=== PATIENT | female | born 1940 | race Caucasian/White ===

== ENCOUNTER 2020-11-21 12:53 | Observation (INO) | payer MEDICARE, OTHER, SELFPAY ==
[2020-11-21] VITALS (19 sets, daily range): BP systolic 144–191; BP diastolic 53–113; PULSE 56–82; RESP 15–25; TEMP 36.3–36.5; O2SAT 90–96; BMI 29.5
--- NOTE | ~2020-11-21 | CT_ITS ---
EXAMINATION: CT brain wo con EXAM DATE: 11/21/2020 13:39 INDICATION: Fall, neck pain, posterior head injury. Altered mental status. TECHNIQUE: Spiral CT of the head was performed without contrast. Axial, coronal and sagittal images were reviewed. The dose-length product (DLP) for this examination was 605.33 mGy-cm. The exposure w as tailored according to patient size, and iterative reconstruction (ASIR) was used as additional dos e reduction technique. Comparison is made to prior examination from 08/26/2017. FINDINGS: There is no acute intraparenchymal hemorrhage. No evidence of intraparenchymal brain mass lesion. No evidence of acute infarction. Please note that initial head CT has limited sensitivity f or small or acute infarctions. Punctate old right caudate head lacunar infarction. There is mild to moderate periventricular and subcortical hypodensity, nonspecific but probably related to small vess el ischemic disease. There is mild to moderate prominence of the sulci and ventricles related to ce rebral atrophy. There is intracranial carotid arteriosclerosis. There are no extra-axial collectio ns. There is no mass effect or midline shift. Patient has had bilateral ocular lens surgery. Soft tissue is unremarkable. The visualized sinuses and mastoid air cells are well aerated. IMPRESSION: 1. No acute intracranial findings. 2. Chronic age related findings. Reviewed, dictated and finalized at location A.
--- NOTE | ~2020-11-21 | CT_ITS ---
EXAMINATION: CT cervical spine wo con EXAM DATE: 11/21/2020 13:39 INDICATION: Fall, posterior head injury. TECHNIQUE: Spiral CT of the cervical spine was performed without contrast. Axial images were reviewe d. Coronal and sagittal reformatted images cervical spine were also reviewed. The dose-length produc t (DLP) for this examination was 239.48 mGy-cm. The exposure was tailored according to patient size (auto mA exposure control), and iterative reconstruction (ASIR) was used as additional dose reduction technique. There is no prior study for comparison. FINDINGS: There is mild reversal of the normal cervical lordosis which may be positional, degenerativ e or spasm. There is no evidence of acute cervical fracture. The odontoid process is intact. Pre-de ns space is normal. Prevertebral soft tissue is normal. There are no soft tissue abnormalities iden tified. There is no disc space widening or traumatic vertebral body subluxation suspected. Advanced disc disease C5-T1. Advanced left-sided mid cervical facet arthropathy. Dense carotid arterioscleros is. A detailed level by level evaluation of spondylosis can be added as addendum if requested. IMPRESSION: 1. No acute cervical fracture. 2. Advanced cervical spondylosis. Reviewed, dictated and finalized at location A.
--- NOTE | ~2020-11-21 | XR_ITS ---
EXAMINATION: XR chest 1V EXAM DATE: 11/21/2020 13:49 INDICATION: Fall, altered mental status. TECHNIQUE: Portable AP frontal chest x-ray was obtained. Comparison is made to prior examination from 08/30/2017. FINDINGS: There is cardiomegaly and pulmonary vascular congestion. Possible mild pulmonary edema. No confluent consolidation, pneumothorax or pleural effusion suspected. There are bony degenerative anderson ges. IMPRESSION: Cardiac megaly, pulmonary vascular congestion. Possible mild edema. Reviewed, dictated and finalized at location A.
--- NOTE | 2020-11-21 13:02 | ECG_ITS ---
SINUS RHYTHM RIGHT AXIS DEVIATION INCOMPLETE RIGHT BUNDLE BRANCH BLOCK BORDERLINE T WAVE ABNORMALITY- INFERIOR LEADS BASELINE ARTIFACT- II, III, AVR, AVF, V2-V6 BORDERLINE ECG Electronically Signed On 11-22-2020 7:02:31 CDT by Reji MONTES
--- NOTE | 2020-11-21 13:13 | ECG_ITS ---
Measurements Intervals [place] Rate: 73 P: 11 OK: 143 QRS: 38 QRSD: 92 T: -34 QT: 415 QTc: 458 Interpretive Statements SINUS RHYTHM INCOMPLETE RIGHT BUNDLE BRANCH BLOCK BORDERLINE T WAVE ABNORMALITY- DIFFUSE LEADS BASELINE ARTIFACT- I, II, III, AVR, AVF, V1 BORDERLINE ECG Electronically Signed On 11-21-2020 19:50:46 CDT by Reji Barnett D.O.
--- NOTE | 2020-11-21 13:13 | ED.WEAKNESS ---
HPI - Weakness General Chief complaint: Fall Stated complaint: FALLS History of Present Illness HPI Narrative: Weakness and confusion for the past week. Noted to have 2 falls today. Her son says that she used to have dementia. She lives alone and is usually self sufficient. He does not think that she has been eating. He notes that she has been worried because her other son is in the hospital. EMS notes that she has been incontinent of urine and her glucose was significantly elevated. History limited by mental status. Related Data Home Medications Medication Instructions Recorded Confirmed acetazolamide 250 mg PO DAILY 11/21/20 11/21/20 atenolol 50 mg PO DAILY 11/21/20 11/21/20 escitalopram oxalate 10 mg PO DAILY 11/21/20 11/21/20 gabapentin 1,200 mg PO 11/21/20 11/21/20 gabapentin 600 mg PO DAILY 11/21/20 11/21/20 insulin glargine [Lantus Solostar 0 unit SUBCUT DAILY 11/21/20 11/21/20 U-100 Insulin] latanoprost 1 drp EACH EYE 11/21/20 11/21/20 lisinopril 40 mg PO 11/21/20 11/21/20 loperamide [Imodium A-D] 2 mg PO QID PRN 11/21/20 11/21/20 rosuvastatin 10 mg PO DAILY 11/21/20 11/21/20 Allergies Allergy/AdvReac Type Severity Reaction Status Date / Time codeine Allergy Unknown Unknown Verified 11/21/20 18:05 Review of Systems Review of Systems: All systems reviewed & are unremarkable except as noted in HPI and below ROS unobtainable: Yes unobtainable due to mental status Constitutional: Constitutional: Denies fever(s) and Reports weakness PMFSH Past Medical History Medical History Dementia Diabetes HTN (hypertension) Social History Social History Smoking status: Former smoker Tobacco type: cigarettes Second hand tobacco smoke exposure: No Alcohol intake: never Substance use: never Gender identity (if verbalized by the patient): Female Sexual Orientation (if Verbalized by the Patient): Straight or Heterosexual Spiritual care concerns: No Exam Const: General: no acute distress, alert and ill appearing Other: oriented x2 HENMT: Mouth: Yes dry mucous membranes Other: 2 cm posterior scalp laceration Eyes: Conjunctivae: conjunctivae normal Pupils: Equal, round and reactive pupils present EOM: EOMs intact bilaterally Neck: Neck: normal visual inspection and no lymphadenopathy Chest: Chest palpation & inspection: no tenderness Resp: Effort & Inspection: normal respiratory effort Auscultation: clear to auscultation bilaterally, no rales, no rhonchi and no wheezes Cardio: Jugular venous distension: no JVD Rate: regular rate Rhythm: regular rhythm Heart sounds: no murmurs GI: Inspection: non-distended GI Palp: Yes Soft to palpation and No Tenderness to palpation present (GI) Skin: General skin exam: normal color Other: erythema under pannus. Mild skin breakdown to buttocks without wound Neuro: General: moves all extremities, no focal motor deficits and CN's II-XI intact bilaterally Speech: normal speech Extrem: General: no edema Psych: Appearance: well kempt Affect: normal affect Course Vital Signs Vital signs: Vital Signs Pulse Rate 74 11/21/20 13:16 Respiratory Rate 20 11/21/20 13:16 Pulse Oximetry 94 11/21/20 13:16 Temperature 36.3 C L 11/21/20 18:00 Pulse Rate 70 11/21/20 18:00 Respiratory Rate 16 11/21/20 18:00 Blood Pressure 152/81 H 11/21/20 18:00 Pulse Oximetry 91 11/21/20 18:00 Procedures Laceration Laceration 1: Date: 11/21/20 Site: scalp Size (cm): 2 Description: linear Depth: simple, single layer Local Anesthetic: none Pre-repair: wound explored and irrigated ====== Skin Level ====== Skin layer closed with: kourtney Number of sutures: 2 ====== Subcutaneous Layer ====== ====== Muscle Layer ====== ====== Tendon Layer ===
[2020-11-21 13:25] LABS: Basophils Percent Auto 0.3 % (0.2-1.2); Hematocrit 42.7 % (37.0-47.0); Hemoglobin 14.7 g/dL (12.0-15.0); Immature Granulocyte Absolute 0.08 K/mm3 (0.00-0.031); Immature Granulocyte Percent A 0.5 % (0-0.5); Mean Corpuscular HGB Conc 34.4 g/dl (32-36); Mean Corpuscular Hemoglobin 29.3 pg (26-34); Mean Corpuscular Volume 85.1 fl (80-100); Mean Platelet Volume 11.8 fl (7.4-10.4); Monocytes Absolute Auto 1.3 K/mm3 (0.1-0.6); Monocytes Percent Auto 8.4 % (2.6-8.5); Neutrophils Absolute Auto 13.6 K/mm3 (1.3-6.7); Neutrophils Percent Auto 85.8 % (45.5-73.1); Platelet Count Result 273 k/mm3 (150-375); Red Blood Count 5.02 M/mm3 (4.2-5.4); Red Cell Distribution Width 13.3 % (11.5-14.5); White Blood Count 15.9 K/mm3 (4.5-10.0)
[2020-11-21 13:34] LABS: INR 0.9; Prothrombin Time 13.1 Seconds (11.1-14.7)
[2020-11-21 13:35] LABS: Partial Thromboplastin Time 27.8 SECONDS (22.3-36.8)
[2020-11-21] MEDS: SODIUM CHLORIDE 0.9% IV 1,000 ML 999 ML IV CONT ×2 (13:42→14:35)
[2020-11-21 14:14] LABS: Glucose Point of Care 239 (65-105)
[2020-11-21 14:33] LABS: Alanine Aminotransferase 31 U/L (4-35); Albumin Level 3.2 g/dL (3.5-5.1); Alkaline Phosphatase 94 U/L (38-126); Anion Gap 2 mmol/L (8-16); Aspartate Amino Transferase 103 U/L (14-36); Bilirubin,Total 0.5 mg/dL (0.2-1.3); Blood Urea Nitrogen 31 mg/dL (7-17); Calcium 9.3 mg/dL (8.4-10.2); Carbon Dioxide 29 mmol/L (22-30); Chloride 106 mmol/L (98-107); Estimated CRCL calculation 35 ml/min; Estimated Glomerular Filt Rate 48; Glucose 242 mg/dL (65-105); Potassium 4.1 mmol/L (3.4-5.0); Sodium 137 mmol/L (137-145)
[2020-11-21 14:39] LABS: Add Urine Microscopic? YES; Appearance Urine Clear (Clear); Bacteria Urine Trace /hpf; Bilirubin Urine Negative (Negative); Blood Urine Negative (Negative); Color Urine Yellow (Yellow); Glucose Urine UA 2+ mg/dL (Negative); Ketones Urine Negative (Negative); Leukocyte Esterase Ur Negative LEU/UL (Negative); Mucus Urine Rare /lpf; Nitrate Urine Negative (Negative); Protein Urine 3+ mg/dL (Negative); RBC Urine 0-2 /hpf (0-2); Specific Grav Ur 1.018 (1.001-1.035); Urobilinogen Urine Negative mg/dL (<2.0); WBC Urine 0-3 /hpf
--- NOTE | 2020-11-21 15:28 | PC.NURSE ---
Report given to Sybil ORTIZ
--- NOTE | 2020-11-21 17:40 | ADMGEN ---
This patient, Terri Rodriguez, was admitted to 3 [facility] Surg Room 333-01. Patient/family oriented to hospital policies and general routines including ID bracelet, bed and alarms, visiting hours, pain management, procedures, bathroom and other care routines, personal items, smoking policy, room service/diet, and visiting hours. Information on how to activate the Rapid Response Team has been discussed. Patient/Family are encouraged to report perceived risks to care and to ask questions if they do not understand what they are told or what they should do.
[2020-11-21] MEDS: LACTATED RINGERS 1,000 ML 75 ML IV CONT (18:06)
--- NOTE | 2020-11-21 18:28 | ECG_ITS ---
SINUS RHYTHM INCOMPLETE RIGHT BUNDLE BRANCH BLOCK BORDERLINE T WAVE ABNORMALITY- DIFFUSE LEADS BASELINE ARTIFACT- I, II, III, AVR, AVF, V1 BORDERLINE ECG Electronically Signed On 11-21-2020 19:50:46 CDT by Reji Barnett D.O. COMPARED TO ECG 11/21/2020 13:02:10 INCOMPLETE RIGHT BUNDLE-BRANCH BLOCK NOW PRESENT MTDD
--- NOTE | 2020-11-21 22:04 | PM.IMHP ---
H&P: HPI History of Present Illness Date/Time: 11/21/20 22:04 this is a 80-year-old female patient who resides at home. The patient had been complaining of weakness and confusion for the last past week. She fall 2 times today. She does have a history of dementia. Is reported that the patient lives home alone. Her son was in the emergency room with her any stated that he does not believe that she has been eating or drinking. The patient has been incontinent of urine and had limited mental status. Was noted that the patient had a scalp laceration and had 2 kourtney placed. Is not known if the patient lost consciousness. Chronic age-related findings. Cervical spine CT was read as no acute cervical fracture advanced cervical spondylosis. Chest x-ray was read as cardiac megaly pulmonary vascular congestion possible mild edema.wbc 15.9. Her blood sugar was noted to be 252. Urine was negative for UTI. The patient was given IV fluids. She is being admitted for observation on the date of service of 11/21/2020 Chief Complaint: Fall Review of Systems Review of Systems: ROS unobtainable: Yes unobtainable due to mental status PMFSH Past Medical History Medical History (Updated 11/21/20 @ 22:37 by Casi Davis NP) Congestive heart failure COPD (chronic obstructive pulmonary disease) Dementia Diabetes Diabetes mellitus with neuropathy Diabetic retinopathy Foot fracture Glaucoma History of cervical cancer History of seizure HTN (hypertension) HTN (hypertension), malignant Hyperlipidemia Obstructive sleep apnea Noncompliant with a CPAP Surgical History Surgical History (Updated 11/21/20 @ 22:12 by Casi Davis NP) H/O tubal ligation H/O: hysterectomy History of appendectomy Hx of cholecystectomy Family History Family History (Updated 11/21/20 @ 22:13 by Casi Davis NP) Unknown Adopted Social History Social History (Updated 11/21/20 @ 22:16 by Casi Davis NP) Social History: According to the ER records the patient lives home alone and there was a son that was down the with her earlier. 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 The next of kin Nickolas whitman Smoking status: Former smoker Tobacco type: cigarettes Second hand tobacco smoke exposure: No Alcohol intake: never Substance use: never Gender identity (if verbalized by the patient): Female Sexual Orientation (if Verbalized by the Patient): Straight or Heterosexual Spiritual care concerns: No Meds Home Medications and Allergies Home Medications Medication Instructions Recorded Confirmed Type acetazolamide 250 mg PO DAILY 11/21/20 11/21/20 History atenolol 50 mg PO DAILY 11/21/20 11/21/20 History escitalopram oxalate 10 mg PO DAILY 11/21/20 11/21/20 History gabapentin 1,200 mg PO HS 11/21/20 11/21/20 History gabapentin 600 mg PO DAILY 11/21/20 11/21/20 History insulin glargine [Lantus Solostar 0 unit SUBCUT DAILY 11/21/20 11/21/20 History U-100 Insulin] latanoprost 1 drp EACH EYE HS 11/21/20 11/21/20 History lisinopril 40 mg PO HS 11/21/20 11/21/20 History loperamide [Imodium A-D] 2 mg PO QID PRN 11/21/20 11/21/20 History rosuvastatin 10 mg PO DAILY 11/21/20 11/21/20 History Allergies Allergy/AdvReac Type Severity Reaction Status Date / Time codeine Allergy Unknown Unknown Verified 11/21/20 18:05 Vital Signs Vital Signs - 24 hr 11/21/20 13:16 11/21/20 13:47 11/21/20 14:00 Temperature Pulse Rate 74 76 78 Respiratory Rate 20 17 20 Blood Pressure 183/68 H Pulse Oximetry 94 94 96 11/21/20 14:02 11/21/20 14:15 11/21/20 14:16 Temperature Pulse Rate 79 79 82 Respiratory Rate 23 H 18 24 H Blood Pressure 160/61 H 169/71 H Pulse Oximetry 95 96 95 11/21/20 14:30 11/21/20 14:31 11/21/20 14:45 Temperature Pulse Rate 79 80 77 Respiratory Rate 15 19 21 H Blood Pressure 186/78 H Pulse Oximetry 95 90 93 11/21/20 14:47 11/21/20 14:51 11/21/20 15:00 Temperature Pulse Rate 78 7
[2020-11-21] MEDS: GABAPENTIN 400 MG CAPSULE 1200 MG PO (23:00)
[2020-11-21] MEDS: LATANOPROST 0.005% OP SOLN 2.5 ML BTL 1 DROP EACH EYE (23:05)
[2020-11-21] MEDS: lisinopriL 20 MG TABLET 40 MG PO (23:05)
[2020-11-22] VITALS (8 sets, daily range): BP systolic 128–179; BP diastolic 44–112; PULSE 53–65; RESP 18–20; TEMP 36.4–36.6; O2SAT 95–97
[2020-11-22 06:34] LABS: Basophils Absolute Auto 0.1 K/mm3 (0.0-0.1); Basophils Percent Auto 0.5 % (0.2-1.2); Eosinophils Absolute Auto 0.2 K/mm3 (0-0.3); Hematocrit 40.6 % (37.0-47.0); Hemoglobin 13.3 g/dL (12.0-15.0); Immature Granulocyte Absolute 0.04 K/mm3 (0.00-0.031); Immature Granulocyte Percent A 0.4 % (0-0.5); Lymphocytes Absolute Auto 1.75 K/mm3 (0.9-3.2); Lymphocytes Percent Auto 16.6 % (18.3-44.2); Mean Corpuscular HGB Conc 32.8 g/dl (32-36); Mean Corpuscular Hemoglobin 29.3 pg (26-34); Mean Corpuscular Volume 89.4 fl (80-100); Mean Platelet Volume 11.7 fl (7.4-10.4); Monocytes Percent Auto 9.4 % (2.6-8.5); Neutrophils Absolute Auto 7.5 K/mm3 (1.3-6.7); Neutrophils Percent Auto 71.1 % (45.5-73.1); Platelet Count Result 221 k/mm3 (150-375); Red Blood Count 4.54 M/mm3 (4.2-5.4); Red Cell Distribution Width 13.6 % (11.5-14.5); White Blood Count 10.5 K/mm3 (4.5-10.0)
[2020-11-22 06:42] LABS: Alanine Aminotransferase 32 U/L (4-35); Albumin Level 2.6 g/dL (3.5-5.1); Alkaline Phosphatase 74 U/L (38-126); Anion Gap -1 mmol/L (8-16); Aspartate Amino Transferase 88 U/L (14-36); Bilirubin,Total 0.4 mg/dL (0.2-1.3); Blood Urea Nitrogen 25 mg/dL (7-17); Calcium 8.6 mg/dL (8.4-10.2); Carbon Dioxide 31 mmol/L (22-30); Chloride 107 mmol/L (98-107); Estimated CRCL calculation 35 ml/min; Estimated Glomerular Filt Rate 54; Glucose 162 mg/dL (65-105); Lactate Dehydrogenase 689 U/L (313-618); Magnesium 1.9 mg/dL (1.6-2.3); Potassium 4.1 mmol/L (3.4-5.0); Sodium 137 mmol/L (137-145)
[2020-11-22 07:00] LABS: Hemoglobin A1C 9.1 % (<5.7)
[2020-11-22 07:56] LABS: Glucose Point of Care 157 (65-105)
[2020-11-22] MEDS: LACTATED RINGERS 1,000 ML 75 ML IV CONT (08:16)
[2020-11-22] MEDS: GABAPENTIN 300 MG CAPSULE 600 MG PO (10:08)
[2020-11-22] MEDS: ROSUVASTATIN 10 MG TABLET PO (10:08)
[2020-11-22] MEDS: ESCITALOPRAM OXALATE 10 MG TABLET PO (10:08)
[2020-11-22] MEDS: acetaZOLAMIDE TAB 250 MG TABLET PO (10:08)
[2020-11-22] MEDS: atenoloL 50 MG TABLET PO (10:08)
[2020-11-22] MEDS: MICONAZOLE NITRATE 2% CREAM 30 GM TUBE 1 APPLIC TOPICAL ×2 (10:09)
[2020-11-22] MEDS: INSULIN GLARGINE (*BKC) 100 UNITS/ML 25 UNITS SUB-Q (10:50)
[2020-11-22 11:48] LABS: Glucose Point of Care 243 (65-105)
[2020-11-22] MEDS: INSULIN ASPART (*BKC) 100 UNITS/ML SUB-Q (11:53)
--- NOTE | 2020-11-22 13:25 | PM.IMPN ---
Progress Note: A&P Assessment and Plan (1) Falls: Code(s): W19.XXXA - Unspecified fall, initial encounter Status: Acute Assessment and Plan: The patient has a laceration to the left parietal occipital area and had a CT scan which was read as nothing acute. Will need to do a chronic care nurse evaluation as the patient lives home alone. Will need PT and OT evaluation as well. 11/22/20 13:25 this is a 80-year-old female patient who resides at home. The patient had been complaining of weakness and confusion for the last past week. She fall 2 times today. She does have a history of dementia. Is reported that the patient lives home alone. Her son was in the emergency room with her any stated that he does not believe that she has been eating or drinking. The patient has been incontinent of urine and had limited mental status. Was noted that the patient had a scalp laceration and had 2 kourtney placed. Is not known if the patient lost consciousness. Chronic age-related findings. Cervical spine CT was read as no acute cervical fracture advanced cervical spondylosis. Chest x-ray was read as cardiac megaly pulmonary vascular congestion possible mild edema.wbc 15.9. Her blood sugar was noted to be 252. Urine was negative for UTI. The patient was given IV fluids. She is being admitted for observation on the date of service of 11/21/202011/22 patient with frequent fall and had a recent fall was brought to the emergency depart, this morning patient states it just feels tired and fatigue no energy to get up and do something, does not feel like eating poor appetite, denies any chest shortness of breath palpitation fever or chills, CT scan of the head was negative any acute injury, will have a PT OT evaluate the patient, patient will benefit going into rehab before going home (2) Dementia: Code(s): F03.90 - Unspecified dementia without behavioral disturbance Status: Chronic Assessment and Plan: The patient had been functioning at home but apparently is having some periods of confusion and not eating very well. utilization review coordinator evaluation and greatly be appreciated possible rehab facility or long-term facility. (3) Diabetes mellitus with neuropathy: Code(s): E11.40 - Type 2 diabetes mellitus with diabetic neuropathy, unspecified Status: Chronic Assessment and Plan: AC and HS. Continue with Lantus. Continue with gabapentin. (4) HTN (hypertension), malignant: Code(s): I10 - Essential (primary) hypertension Status: Chronic Assessment and Plan: Continue with atenolol. And lisinopril. (5) Hyperlipidemia: Code(s): E78.5 - Hyperlipidemia, unspecified Status: Chronic Assessment and Plan: Continue with rosuvastatin (6) COPD (chronic obstructive pulmonary disease): Code(s): J44.9 - Chronic obstructive pulmonary disease, unspecified Status: Chronic Assessment and Plan: Continue with home medications. (7) Congestive heart failure: Code(s): I50.9 - Heart failure, unspecified Status: Chronic Assessment and Plan: Continue with home medications. (8) Generalized weakness: Code(s): R53.1 - Weakness Status: Acute Assessment and Plan: PT and OT evaluation greatly be appreciated is felt that the patient is weak due to her dehydration. She is being gently hydrated at this time. (9) Laceration of scalp: Code(s): S01.01XA - Laceration without foreign body of scalp, initial encounter Status: Acute Assessment and Plan: Two sutures are intact to the lacerated area is well approximated without any drainage. (10) Dehydration: Code(s): E86.0 - Dehydration Status: Acute Assessment and Plan: Continue to gently hydrate. (11) Glaucoma: Code(s): H40.9 - Unspecified glaucoma Status: Chronic Assessment and Plan: Continue with home medication Subjective Date
--- NOTE | 2020-11-22 14:25 | PC.NURSE ---
On 11/22/20, the student, [ Jossy Enriquez], provided care and completed [facility] documentation on this patient. I have reviewed the student's documentation and agree with the findings.
--- NOTE | 2020-11-22 14:52 | PM.DS ---
DS: Admitting Diagnosis Admitting Diagnosis Admitting Diagnosis: Fall DS: Discharge Diagnosis Discharge Diagnosis (1) Falls: Code(s): W19.XXXA - Unspecified fall, initial encounter Status: Acute Assessment and Plan: The patient has a laceration to the left parietal occipital area and had a CT scan which was read as nothing acute. Will need to do a field care manager evaluation as the patient lives home alone. Will need PT and OT evaluation as well. 11/22/20 13:25 this is a 80-year-old female patient who resides at home. The patient had been complaining of weakness and confusion for the last past week. She fall 2 times today. She does have a history of dementia. Is reported that the patient lives home alone. Her son was in the emergency room with her any stated that he does not believe that she has been eating or drinking. The patient has been incontinent of urine and had limited mental status. Was noted that the patient had a scalp laceration and had 2 kourtney placed. Is not known if the patient lost consciousness. Chronic age-related findings. Cervical spine CT was read as no acute cervical fracture advanced cervical spondylosis. Chest x-ray was read as cardiac megaly pulmonary vascular congestion possible mild edema.wbc 15.9. Her blood sugar was noted to be 252. Urine was negative for UTI. The patient was given IV fluids. She is being admitted for observation on the date of service of 11/21/202011/22 patient with frequent fall and had a recent fall was brought to the emergency depart, this morning patient states it just feels tired and fatigue no energy to get up and do something, does not feel like eating poor appetite, denies any chest shortness of breath palpitation fever or chills, CT scan of the head was negative any acute injury, will have a PT OT evaluate the patient, patient will benefit going into rehab before going home (2) Dementia: Code(s): F03.90 - Unspecified dementia without behavioral disturbance Status: Chronic Assessment and Plan: The patient had been functioning at home but apparently is having some periods of confusion and not eating very well. retail marketing coordinator evaluation and greatly be appreciated possible rehab facility or long-term facility. (3) Diabetes mellitus with neuropathy: Code(s): E11.40 - Type 2 diabetes mellitus with diabetic neuropathy, unspecified Status: Chronic Assessment and Plan: AC and HS. Continue with Lantus. Continue with gabapentin. (4) HTN (hypertension), malignant: Code(s): I10 - Essential (primary) hypertension Status: Chronic Assessment and Plan: Continue with atenolol. And lisinopril. (5) Hyperlipidemia: Code(s): E78.5 - Hyperlipidemia, unspecified Status: Chronic Assessment and Plan: Continue with rosuvastatin (6) COPD (chronic obstructive pulmonary disease): Code(s): J44.9 - Chronic obstructive pulmonary disease, unspecified Status: Chronic Assessment and Plan: Continue with home medications. (7) Congestive heart failure: Code(s): I50.9 - Heart failure, unspecified Status: Chronic Assessment and Plan: Continue with home medications. (8) Generalized weakness: Code(s): R53.1 - Weakness Status: Acute Assessment and Plan: PT and OT evaluation greatly be appreciated is felt that the patient is weak due to her dehydration. She is being gently hydrated at this time. (9) Laceration of scalp: Code(s): S01.01XA - Laceration without foreign body of scalp, initial encounter Status: Acute Assessment and Plan: Two sutures are intact to the lacerated area is well approximated without any drainage. (10) Dehydration: Code(s): E86.0 - Dehydration Status: Acute Assessment and Plan: Continue to gently hydrate. (11) Glaucoma: Code(s): H40.9 - Unspecified glaucoma Status: Chroni
== END 2020-11-22 15:40 | disposition home health service (06) ==
LOC: ANHED 14:06 → ANH3MEDSUR 20:48
PROVIDERS: Nurse Practitioner; Admitting Provider Family Medicine; Emergency Provider Emergency Medicine; PCP Family Medicine; Visit Provider Family Medicine
DX: S01.01XA Laceration without foreign body of scalp, initial encounter (principal); W19.XXXA Unspecified fall, initial encounter; R32 Unspecified urinary incontinence; R53.1 Weakness; E11.42 Type 2 diabetes mellitus with diabetic polyneuropathy; E78.5 Hyperlipidemia, unspecified; F03.90 Unspecified dementia, unspecified severity, without behavioral disturbance, psychotic disturbance, mood disturbance, and anxiety; I11.0 Hypertensive heart disease with heart failure; I50.9 Heart failure, unspecified; J44.9 Chronic obstructive pulmonary disease, unspecified; Z87.891 Personal history of nicotine dependence; Z79.4 Long term (current) use of insulin
CPT/HCPCS: 12001; 36415; 51701; 70450; 71045; 72125; 80053; 81001; 82948; 83036; 83615; 83735; 84443; 85025; 85610; 85730; 93005; 96360; 96361; 97161; 97165; 99285; A9270; G0378; J1815; J7030; J7120

== ENCOUNTER 2022-04-08 14:24 | Inpatient (IN) | payer MEDICARE, OTHER, SELFPAY ==
[2022-04-08] VITALS (17 sets, daily range): BP systolic 152–201; BP diastolic 48–82; PULSE 49–71; RESP 12–22; TEMP 36.1–36.9; O2SAT 92–99; BMI 31.1; BMI 30.9
--- NOTE | ~2022-04-08 | US_ITS ---
EXAMINATION: US carotid duplex BI DATE: 04/09/2022 11:22 INDICATION: Syncope. Carotid atherosclerotic calcifications with stenosis on prior cervical spine CT. TECHNIQUE: Grayscale, color Doppler, and pulsed Doppler images of the cervical carotid arteries were obtained. The degree of vessel stenosis is placed in one of the following categories: normal, <50%, 5 0-69%, >=70% but less than near-occlusion, near-occlusion, or total occlusion. Note that percent sten osis relative to normal distal artery lumen diameter is indirectly measured from velocity measurement s as described by Isaiah, et al. Radiology 2003; 229:340-346. COMPARISON: None. FINDINGS: RIGHT: The right common carotid artery (CCA) peak systolic velocity (PSV) is 69 cm/s. The right internal car otid artery (ICA) PSV is 148 cm/s. The right ICA end-diastolic velocity (EDV) is 14 cm/s. The right I CA/CCA PSV ratio is 2.1. Grayscale and color Doppler images yield an estimate of 50-69% diameter redu ction from plaque in the ICA. The external carotid artery (ECA) PSV is 131 cm/s. There is antegrade f low in the right vertebral artery. LEFT: The left CCA PSV is 90 cm/s. The left ICA PSV is 229 cm/s. The left ICA EDV is 16 cm/s. The left ICA/ CCA PSV ratio is 2.6. Grayscale and color Doppler images yield an estimate of 50-69% diameter reducti on from plaque in the ICA. The ECA PSV is 109 cm/s. The left vertebral artery is not identified which suggests potential occlusion.. IMPRESSION: 1. 50-69% stenosis in the right internal carotid artery. 2. 50-69% stenosis in the left internal carotid artery. 3. Nonvisualized left vertebral artery which suggests the possibility of occlusion. Reviewed, dictated and finalized at location A. IMPRESSION: 1. 50-69% stenosis in the right internal carotid artery. 2. 50-69% stenosis in the left internal carotid artery. 3. Nonvisualized left vertebral artery which suggests the possibility of occlus ion.
--- NOTE | 2022-04-08 14:43 | ECG_ITS ---
Measurements Intervals [place] Rate: 54 P: 74 AR: 157 QRS: 223 QRSD: 139 T: -1 QT: 472 QTc: 448 Interpretive Statements ELECTRONIC VENTRICULAR PACEMAKER INCOMPLETE RIGHT BUNDLE BRANCH BLOCK AND A RIGHT BUNDLE BRANCH BLOCK COMPLEX BORDERLINE T WAVE ABNORMALITY- INFERIOR LEADS BASELINE ARTIFACT- I, III, AVR, AVL ABNORMAL ECG COMPARED TO ECG 11/21/2020 18:37:43 NO SIGNIFICANT CHANGES Electronically Signed On 04-08-2022 20:56:00 CDT by Reji Barnett D.O.
[2022-04-08 15:55] LABS: Basophils Percent Auto 0.5 % (0.2-1.2); Eosinophils Absolute Auto 0.2 K/mm3 (0-0.3); Eosinophils Percent Auto 2.3 % (0-4.4); Hematocrit 46.7 % (37.0-47.0); Immature Granulocyte Absolute 0.02 K/mm3 (0.00-0.031); Immature Granulocyte Percent A 0.2 % (0-0.5); Lymphocytes Absolute Auto 1.74 K/mm3 (0.9-3.2); Lymphocytes Percent Auto 20.9 % (18.3-44.2); Mean Corpuscular HGB Conc 32.1 g/dl (32-36); Mean Corpuscular Hemoglobin 28.7 pg (26-34); Mean Corpuscular Volume 89.5 fl (80-100); Mean Platelet Volume 11.6 fl (7.4-10.4); Monocytes Absolute Auto 0.4 K/mm3 (0.1-0.6); Monocytes Percent Auto 4.7 % (2.6-8.5); Neutrophils Percent Auto 71.4 % (45.5-73.1); Platelet Count Result 227 k/mm3 (150-375); Red Blood Count 5.22 M/mm3 (4.2-5.4); Red Cell Distribution Width 14.6 % (11.5-14.5); White Blood Count 8.3 K/mm3 (4.5-10.0)
[2022-04-08 16:16] LABS: Alanine Aminotransferase 34 U/L (6-35); Albumin Level 3.8 g/dL (3.5-5.1); Alkaline Phosphatase 95 U/L (38-126); Anion Gap 8 mmol/L (8-16); Aspartate Amino Transferase 44 U/L (14-36); Bilirubin,Total 0.3 mg/dL (0.2-1.3); Blood Urea Nitrogen 31 mg/dL (7-17); Calcium 9.1 mg/dL (8.4-10.2); Carbon Dioxide 26 mmol/L (22-30); Chloride 103 mmol/L (98-107); Estimated CRCL calculation 26 ml/min; Estimated Glomerular Filt Rate 36; Glucose 328 mg/dL (65-110); Lipase 123 U/L (23-300); Potassium 7.3 mmol/L (3.4-5.0); Sodium 137 mmol/L (137-145)
--- NOTE | 2022-04-08 17:10 | ED.GENADULT ---
HPI - General Adult General Chief complaint: Abdominal Pain Stated complaint: abd pain Time Seen by Provider: 04/08/22 16:39 History of Present Illness HPI narrative: Patient is a 81-year-old female who presents ER after having syncope. Patient was sitting in chair speaking with family when they witnessed her lose consciousness. They are unable to awaken her with noxious stimuli. Short time later she woke up and began talking them again. She does not recall the event. She was having no chest pain. She does not recall being lightheaded. Patient found to be hyperkalemic. She denies any new vitamins or diets. There have been no recent changes in her home medications. Related Data Home Medications Medication Instructions Recorded Confirmed atenolol 50 mg tablet 25 mg PO DAILY 11/21/20 04/08/22 gabapentin 600 mg tablet 1,200 mg PO HS 11/21/20 04/08/22 gabapentin 600 mg tablet 600 mg PO DAILY 11/21/20 04/08/22 insulin glargine 100 unit/mL (3 25 unit subcut DAILY 11/21/20 04/08/22 mL) subcutaneous pen (Lantus Solostar U-100 Insulin) latanoprost 0.005 % eye drops 1 drp EACH EYE HS 11/21/20 04/08/22 lisinopril 40 mg tablet 40 mg PO HS 11/21/20 04/08/22 loperamide 2 mg tablet (Imodium 2 mg PO QID PRN Diarrhea 11/21/20 04/08/22 A-D) rosuvastatin 10 mg tablet 10 mg PO DAILY 11/21/20 04/08/22 Allergies Allergy/AdvReac Type Severity Reaction Status Date / Time codeine Allergy Unknown Unknown Verified 11/21/20 18:05 Review of Systems Review of Systems: All systems reviewed & are unremarkable except as noted in HPI and below Constitutional: Constitutional: Denies chills, Denies fatigue and Denies fever(s) ENT: Denies nasal congestion and Denies sore throat Cardiovascular: Cardiovascular: Denies chest pain, Denies rapid heart rate and Denies radiating jaw, neck or arm pain Respiratory: Respiratory: Denies cough and Denies dyspnea Gastrointestinal: Gastrointestinal: Denies abdominal pain, Denies nausea and Denies vomiting Neurologic: Reports syncope, Denies headache(s), Denies focal weakness and Denies numbness PMF Past Medical History Medical History (Updated 04/08/22 @ 22:44 by Ahsan Murrell MD) Congestive heart failure COPD (chronic obstructive pulmonary disease) Dementia Diabetes Diabetes mellitus with neuropathy Diabetic retinopathy Foot fracture Glaucoma History of cervical cancer History of seizure HTN (hypertension) HTN (hypertension), malignant Hyperlipidemia Obstructive sleep apnea Noncompliant with a CPAP Surgical History Surgical History (Updated 11/21/20 @ 22:12 by Casi Davis NP) H/O tubal ligation H/O: hysterectomy History of appendectomy Hx of cholecystectomy Family History Family History Unknown Adopted Social History Social History (Updated 11/21/20 @ 22:16 by Casi Davis NP) Social History: According to the ER records the patient lives home alone and there was a son that was down the with her earlier. 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 The next of kin Nickolas whitman Smoking status: Former smoker Second hand tobacco smoke exposure: No Alcohol intake: never Substance use: never Substance use type: does not use Gender identity (if verbalized by the patient): Female Sexual Orientation (if Verbalized by the Patient): Straight or Heterosexual Spiritual care concerns: No Exam Narrative: GENERAL: Well-appearing, obese, and in no acute distress. HEAD: Normocephalic, atraumatic. EYES: PERRL and EOMI. ENT: Mucous membranes moist. CHEST: Clear to auscultation. No respiratory distress. HEART: Bradycardic and regular. Normal peripheral pulses. ABDOMEN: Soft, nontender, nondistended. EXTREMITIES: Normal range of motion. 1+ edema. SKIN: Warm, dry, no rash. NEURO: Alert and oriented x3. PSYCH: Normal mood and affect. Course Course Emergency Course: Patient appears quite well despite t
[2022-04-08] MEDS: SODIUM BICARBONATE 8.4% 50 MEQ/50 ML SYRINGE IV PUSH (17:15)
[2022-04-08] MEDS: CALCIUM GLUCONATE 1,000 MG/10 ML VIAL 1000 MG IV PUSH (17:15)
[2022-04-08] MEDS: INSULIN HUMAN REGULAR (*BKC) 100 UNITS/ML 10 UNITS IV PUSH (17:22)
[2022-04-08] MEDS: SODIUM ZIRCONIUM CYCLOSILICATE 10 GM POWD.PACK PO (18:23)
[2022-04-08] MEDS: SODIUM CHLORIDE 0.9% IV 1,000 ML 999 ML IV CONT (18:23)
[2022-04-08 18:27] LABS: Appearance Urine Slightly Cloudy (Clear); Bilirubin Urine Negative (Negative); Color Urine Yellow (Yellow); Glucose Urine UA 3+ mg/dL (Negative); Ketones Urine Negative (Negative); Leukocyte Esterase Ur 2+ LEU/UL (Negative); Nitrate Urine Negative (Negative); Protein Urine 2+ mg/dL (Negative); Urobilinogen Urine 0.2 mg/dL (<2.0); pH Urine 7.5 (5.0-9.0)
[2022-04-08 18:29] LABS: Add Urine Microscopic? YES; Blood Urine Trace-Intact (Negative)
[2022-04-08 18:34] LABS: Bacteria Urine Trace /hpf; WBC Urine >75 /hpf
[2022-04-08 18:35] LABS: Anion Gap 8 mmol/L (8-16); Blood Urea Nitrogen 34 mg/dL (7-17); Calcium 10.4 mg/dL (8.4-10.2); Carbon Dioxide 27 mmol/L (22-30); Chloride 104 mmol/L (98-107); Estimated CRCL calculation 28 ml/min; Estimated Glomerular Filt Rate 40; Glucose 130 mg/dL (65-110); Magnesium 2.3 mg/dL (1.6-2.3); Potassium 5.3 mmol/L (3.4-5.0); Sodium 139 mmol/L (137-145)
--- NOTE | 2022-04-08 19:30 | PM.IMHP ---
H&P: HPI History of Present Illness Date/Time: 04/08/22 19:30 Chief Complaint: Unresponsive episode. Narrative: This is a pleasant 81-year-old female with insulin-dependent diabetes, congestive heart failure, hypertension, hyperlipidemia, sleep apnea, and COPD who presented to the emergency department via EMS from home for evaluation after an unresponsive episode. She felt okay when she awoke this morning and she and her son went to [place] to have some of her prescriptions filled. While in the car she developed mild, nondescript abdominal discomfort kind of like gas pains however she was able to eat a grilled cheese for lunch. Upon returning home she took Gas-X and when her son went back to check on her, her eyes seemed to roll into the back of her head and she became pale and unresponsive. It took her almost a minute to come to at which time she was a bit confused and she did not recall feeling lightheaded, warm, dizzy, etcetera prior to the episode. Her vital signs were stable on arrival to the ER. Initial workup was significant for a sodium of 137, potassium 7.3, BUN 31, creatinine 1.40, glucose 328. EKG showed a sinus rhythm with incomplete right bundle branch block and some borderline T-wave abnormalities in the inferior leads. She had routine labs drawn perhaps 3 weeks ago and she received a phone call from her doctor's nurse reporting that my protein levels were a bit high and I was told to cut back on the amount of bananas that a eat. The patient's son confirms this message, and they are adamant that they were told that her protein levels were elevated and not her potassium levels. With further questioning it sounds like she does eat quite a bit of fruit in a day, usually at least 1 good sized banana in addition to an apple or plum, a nectarine, and more recently she has been enjoying some grapefruit as well. She has been on lisinopril for many years and has not had any recent changes to her medications. She is not on potassium supplements at home. She took loperamide twice a couple of days ago for diarrhea but she does not take that very often. With appropriate treatment, her potassium has significantly improved. At the time my evaluation she is hungry and is asking for something to eat. She feels just fine and she denies headache, lightheadedness, dizziness, visual changes, chest pain, pleuritic pain, palpitations, shortness of breath, nausea, vomiting, diarrhea, and dysuria. Review of Systems Review of Systems: Twelve systems were reviewed. No fever, chills, or sweats. No recent cold or flu symptoms. She believes her diabetes is pretty well controlled. On occasion she will have lows, mainly in the mornings. She has not had any significantly elevated glucoses recently. No blurry vision, polydipsia, or polyuria. Except as documented, all other systems were reviewed and are negative. [facility] Past Medical History Medical History (Updated 04/09/22 @ 01:09 by Talia Baptiste PA-C) Cervical cancer Chronic obstructive pulmonary disease Congestive heart failure Diabetic neuropathy Diabetic retinopathy Glaucoma History of seizure As a child. Hyperlipidemia Hypertension Insulin dependent type 2 diabetes mellitus Obstructive sleep apnea Intolerant to CPAP. Surgical History Surgical History (Updated 04/09/22 @ 00:58 by Talia Baptiste PA-C) History of appendectomy History of bilateral cataract extraction History of cholecystectomy History of tonsillectomy History of tubal ligation Family History Family History Unknown Adopted Social History Social History (Updated 04/09/22 @ 00:59 by Talia Baptiste PA-C) Social History: The patient lives in [place]. she is a former smoker and quit 35+ years ago. No alcohol or illicit substance abuse. She designates her son, Philip Rodriguez, as her surrogate decision maker and she wishes to be a full code. Pb
--- NOTE | 2022-04-08 21:13 | ADMGEN ---
This patient, Terri Rodriguez, was admitted to IMU Room 204-01 at 2113. Patient/family oriented to hospital policies and general routines including ID bracelet, bed and alarms, visiting hours, pain management, procedures, bathroom and other care routines, personal items, smoking policy, room service/diet, and visiting hours. Information on how to activate the Rapid Response Team has been discussed. Patient/Family are encouraged to report perceived risks to care and to ask questions if they do not understand what they are told or what they should do.
[2022-04-08] MEDS: HYDROcodone/acetaminophen (*CRX) 5-325 MG TABLET 1 TAB PO (23:28)
[2022-04-08] MEDS: SODIUM CHLORIDE 0.9% IV 1,000 ML 125 ML IV CONT (23:38)
[2022-04-09] VITALS (20 sets, daily range): BP systolic 150–216; BP diastolic 51–98; PULSE 43–101; RESP 12–18; TEMP 36.4–36.7; O2SAT 94–98
--- NOTE | 2022-04-09 01:13 | ECHO_ITS ---
Patient Info Name: Terri Rodriguez Age: 81 years : 1940 Gender: Female Ht: 60 in Wt: 158 lbs BSA: 1.77 m2 HR: 47 bpm BP: 200 / 88 mmHg Technical Quality: Good Exam Date: 04/09/2022 10:07 AM Exam Location: [facility] Patient Status: Outpatient Admit Date: 04/08/2022 Staff Ordering Physician: Talia Baptiste PA-C Anesthesiology Medical Doctor: Jericho Fonseca RDCS, RT Attending Provider: Melvin Olivares MD Referring Physician: Oliva RIZO; Exam Type: CA echo doppler color flow Study Info Indications R55 - Syncope and collapse I10 - Essential (primary) hypertension R01.1 - Cardiac murmur, unspecified Complete two-dimensional, color flow and Doppler transthoracic echocardiogram is performed. Strain analysis performed. Summary 1. Complete two-dimensional, color flow and Doppler transthoracic echocardiogram is performed. 2. Left ventricular chamber dimension is normal. 3. Left ventricular systolic function is normal, estimated at 65-70%. 4. There is mildly increased left ventricular wall thickness. 5. The left ventricular diastolic function is grade III diastolic dysfunction. 6. E/e' 50 is significantly elevated. 7. Global longitudinal strain is normal at -17.0%. 8. Left atrial chamber dimension is moderately enlarged. 9. Right atrial chamber dimension is moderately enlarged. 10. There is moderate aortic valve sclerosis. 11. There is mild aortic valve stenosis with a peak velocity of 181 cm/s, mean gradient of 7 mmHg, and aortic valve area of 1.5 cm2. 12. The mitral valve has moderately thickenedleaflets and severely calcified annulus. 13. There is mild mitral valve regurgitation. 14. There is moderate tricuspid valve regurgitation. 15. Severe pulmonary hypertension, estimated pulmonary arterial systolic pressure is 113 mmHg. Left Ventricle E/e' 50 is significantly elevated. Global longitudinal strain is normal at -17.0%. Left ventricular chamber dimension is normal. Left ventricular systolic function is normal, estimated at 65-70%. There is mildly increased left ventricular wall thickness. The left ventricular diastolic function is grade III diastolic dysfunction. Right Ventricle Right ventricular systolic function is normal and with normal TAPSE 2.0 cm. Right ventricular chamber dimension is normal. Left Atria Left atrial chamber dimension is moderately enlarged. Right Atria Right atrial chamber dimension is moderately enlarged. Aortic Valve The aortic valve is trileaflet. There is moderate aortic valve sclerosis. There is mild aortic valve stenosis with a peak velocity of 181 cm/s, mean gradient of 7 mmHg, and aortic valve area of 1.5 cm2. There is no aortic valve regurgitation. Pulmonic Valve There is no pulmonic regurgitation. Mitral Valve The mitral valve has moderately thickenedleaflets and severely calcified annulus. There is no mitral valve stenosis. There is mild mitral valve regurgitation. Tricuspid Valve There is moderate tricuspid valve regurgitation. Severe pulmonary hypertension, estimated pulmonary arterial systolic pressure is 113 mmHg. Pericardium/Pleural There is no pericardial effusion. Inferior Vena Cava Normal inferior vena cava with >50% collapse upon inspiration consistent with normal right atrial pressure, 5 mmHg. Aorta The aortic root size at the sinus of Valsalva is not well visualized. Left Ventricular Outflow Tract
[2022-04-09 04:47] LABS: Hematocrit 42.6 % (37.0-47.0); Hemoglobin 13.7 g/dL (12.0-15.0); Mean Corpuscular HGB Conc 32.2 g/dl (32-36); Mean Corpuscular Hemoglobin 28.9 pg (26-34); Mean Corpuscular Volume 89.9 fl (80-100); Mean Platelet Volume 11.7 fl (7.4-10.4); Platelet Count Result 203 k/mm3 (150-375); Red Blood Count 4.74 M/mm3 (4.2-5.4); Red Cell Distribution Width 14.4 % (11.5-14.5); White Blood Count 7.5 K/mm3 (4.5-10.0)
[2022-04-09 05:04] LABS: Anion Gap 5 mmol/L (8-16); Blood Urea Nitrogen 30 mg/dL (7-17); Calcium 9.3 mg/dL (8.4-10.2); Carbon Dioxide 25 mmol/L (22-30); Chloride 107 mmol/L (98-107); Estimated CRCL calculation 28 ml/min; Estimated Glomerular Filt Rate 40; Glucose 151 mg/dL (65-110); Magnesium 2.2 mg/dL (1.6-2.3); Potassium 5.4 mmol/L (3.4-5.0); Sodium 137 mmol/L (137-145)
[2022-04-09 05:10] LABS: Hemoglobin A1C 9.2 % (<5.7)
[2022-04-09] MEDS: SODIUM CHLORIDE 0.9% IV 1,000 ML 125 ML IV CONT ×2 (07:46→16:25)
[2022-04-09 07:51] LABS: Glucose Point of Care 170 mg/dl (65-105)
--- NOTE | 2022-04-09 08:01 | PM.IMPN ---
Progress Note: A&P Assessment and Plan (1) Syncope: Code(s): R55 - Syncope and collapse Status: Acute (2) Hyperkalemia: Code(s): E87.5 - Hyperkalemia Status: Acute (3) Bradycardia: Code(s): R00.1 - Bradycardia, unspecified Status: Acute (4) Insulin dependent type 2 diabetes mellitus: Code(s): E11.9 - Type 2 diabetes mellitus without complications; Z79.4 - [facility] (current) use of insulin Status: Acute (5) Hypertension: Code(s): I10 - Essential (primary) hypertension Status: Acute (6) Chronic obstructive pulmonary disease: Code(s): J44.9 - Chronic obstructive pulmonary disease, unspecified Status: Acute Plan # unresponsive episode: CT head negative. Vitals stable. Sinus bradycardia. Potassium is elevated 7.3 . Carotid Doppler 50-69% bilaterally possible left vertebral artery occlusion. Cervical spine CT with advanced cervical spondylosis with no acute cervical fracture. Chest x-ray with cardiomegaly pulmonary vascular congestion and possible mild edema. echo has been ordered pending result. Echo with severe pulmonary hypertension is 113 mm Hg. Will check overnight pulse oximetry. Mild grade 3 diastolic dysfunction. # hyperkalemia 7.3 on arrival. Possible hyperkalemia recently noted in her labs. On lisinopril at home which will be discontinued. Appropriately treated in the ER and hyperkalemia improving. # murmur: Echo order # mild MYRNA creatinine 1.4 on admission. Baseline creatinine around 1 last year. Started on IV hydration. chest x-ray with congestive changes. Will stop IV fluids and start diuresis gently with Lasix IV daily # urinary tract infection start ceftriaxone follow urine culture # COPD # peripheral neuropathy # dementia # hypertension lisinopril on hold. Will add amlodipine. # pulmonary hypertension as noted in the echo. Check overnight pulse oximetry. some of the previous record does show she has a history of sleep apnea and on CPAP at home had been noncompliant. Check BNP an ABG # congestive heart failure acute on chronic diastolic. # type 2 diabetes mellitus on insulin: Continue Lantus and SSI. # hyper lipidemia: Statin # DVT prophylaxis Lovenox # code status full code Subjective Date/time seen: 04/09/22 08:01 Interval history: HPI: This is a pleasant 81-year-old female with insulin-dependent diabetes, congestive heart failure, hypertension, hyperlipidemia, sleep apnea, and COPD who presented to the emergency department via EMS from home for evaluation after an unresponsive episode. She felt okay when she awoke this morning and she and her son went to [place] to have some of her prescriptions filled. While in the car she developed mild, nondescript abdominal discomfort kind of like gas pains however she was able to eat a grilled cheese for lunch. Upon returning home she took Gas-X and when her son went back to check on her, her eyes seemed to roll into the back of her head and she became pale and unresponsive. It took her almost a minute to come to at which time she was a bit confused and she did not recall feeling lightheaded, warm, dizzy, etcetera prior to the episode. Her vital signs were stable on arrival to the ER. Initial workup was significant for a sodium of 137, potassium 7.3, BUN 31, creatinine 1.40, glucose 328. EKG showed a sinus rhythm with incomplete right bundle branch block and some borderline T-wave abnormalities in the inferior leads. She had? routine labs drawn perhaps 3 weeks ago and she received a phone call from her doctor's nurse reporting that my protein levels were a bit high and I was told to cut back on the amount of bananas that a eat. ? The patient's son confirms this message, and they are adamant that they were told that her protein levels were elevated and not her potassium levels. With further questioning it sounds like she does eat quite a bit of fruit in a day, usually at least
[2022-04-09] MEDS: GABAPENTIN 300 MG CAPSULE 600 MG PO (08:24)
[2022-04-09] MEDS: ENOXAPARIN 40 MG/0.4 ML SYRINGE SUB-Q (08:24)
[2022-04-09] MEDS: atenoloL 25 MG TABLET PO (08:24)
[2022-04-09] MEDS: ROSUVASTATIN 10 MG TABLET PO (08:24)
[2022-04-09] MEDS: amLODIPine BESYLATE 5 MG TABLET PO (08:31)
[2022-04-09] MEDS: ACETAMINOPHEN 325 MG TABLET 650 MG PO ×2 (08:33→15:44)
[2022-04-09 12:13] LABS: Glucose Point of Care 213 mg/dl (65-105)
[2022-04-09] MEDS: INSULIN ASPART (*BKC) 100 UNITS/ML SUB-Q ×2 (12:48→17:51)
[2022-04-09 16:48] LABS: Glucose Point of Care 228 mg/dl (65-105)
[2022-04-09 18:58] LABS: Alveolar/Arterial O2 Gradient 37.1 mmHg; Base Excess ABG -2.6 mEq/l (+/-2.0); Fractional Inspired Oxygen 21 %; HCO3 ABG 22.6 mEq/l (22.0-26.0); Oxygen Content ABG 18.7 %vol (16.0-22.0); Oxygen Saturation ABG 91.6 % (95.0-100.0); Oxyhemoglobin 91.2 % THb (90.0-100.0); PCO2 ABG 40.9 mmHg (35.0-45.0); PO2 ABG 63.7 mmHg (80.0-100.0); PO2 FiO2 Ratio Arterial Blood 3.03 %; Total Hemoglobin 14.6 g/dL (12.0-18.0); pH ABG 7.361 (7.350-7.450)
[2022-04-09 18:59] LABS: Device ROOM AIR; Modified Allen's Test Pass; Site Drawn RIGHT RADIAL
[2022-04-09 19:14] LABS: NT Pro B Type Natriuretic Pept 4030 pg/mL (5-100)
[2022-04-09 20:29] LABS: Glucose Point of Care 245 mg/dl (65-105)
[2022-04-09] MEDS: GABAPENTIN 400 MG CAPSULE 1200 MG PO (20:34)
[2022-04-09] MEDS: INSULIN GLARGINE (*BKC) 100 UNITS/ML 25 UNITS SUB-Q (20:34)
[2022-04-09] MEDS: LATANOPROST 0.005% OP SOLN 2.5 ML BTL 1 DROP EACH EYE (20:34)
[2022-04-09] MEDS: HYDROcodone/acetaminophen (*CRX) 5-325 MG TABLET 1 TAB PO (20:34)
--- NOTE | 2022-04-09 21:16 | PCRCNOTE ---
Patient refused apnea link tonight. Patient stated she had already gotten diagnosed with sleep apnea, but she is unable to use a cpap and has no intent on ever using one.
[2022-04-10] VITALS (11 sets, daily range): BP systolic 128–218; BP diastolic 43–62; PULSE 38–53; RESP 18–23; TEMP 36.1–36.4; O2SAT 96–98
[2022-04-10 04:53] LABS: Basophils Percent Auto 0.5 % (0.2-1.2); Eosinophils Absolute Auto 0.3 K/mm3 (0-0.3); Eosinophils Percent Auto 3.9 % (0-4.4); Hematocrit 39.9 % (37.0-47.0); Hemoglobin 12.6 g/dL (12.0-15.0); Immature Granulocyte Absolute 0.03 K/mm3 (0.00-0.031); Immature Granulocyte Percent A 0.4 % (0-0.5); Lymphocytes Absolute Auto 2.01 K/mm3 (0.9-3.2); Lymphocytes Percent Auto 26.9 % (18.3-44.2); Mean Corpuscular HGB Conc 31.6 g/dl (32-36); Mean Corpuscular Volume 91.9 fl (80-100); Mean Platelet Volume 11.9 fl (7.4-10.4); Monocytes Absolute Auto 0.9 K/mm3 (0.1-0.6); Monocytes Percent Auto 12.3 % (2.6-8.5); Neutrophils Absolute Auto 4.2 K/mm3 (1.3-6.7); Platelet Count Result 203 k/mm3 (150-375); Red Blood Count 4.34 M/mm3 (4.2-5.4); Red Cell Distribution Width 14.4 % (11.5-14.5); White Blood Count 7.5 K/mm3 (4.5-10.0)
--- NOTE | 2022-04-10 08:12 | PM.IMPN ---
Progress Note: A&P Assessment and Plan (1) Bradycardia: Code(s): R00.1 - Bradycardia, unspecified Status: Acute Assessment and Plan: Decrease atenolol dose from 25-12.5 (2) Hyperkalemia: Code(s): E87.5 - Hyperkalemia Status: Acute Assessment and Plan: Suspect this is secondary to progressive kidney disease associated with lisinopril use as opposed to fruit intake, will decrease lisinopril and start hydralazine, consider nephrology consult outpatient (3) Syncope: Code(s): R55 - Syncope and collapse Status: Acute Assessment and Plan: Likely secondary to arrhythmia from the severe hyperkalemia, resolved (4) Hypertension: Code(s): I10 - Essential (primary) hypertension Status: Acute (5) Insulin dependent type 2 diabetes mellitus: Code(s): E11.9 - Type 2 diabetes mellitus without complications; Z79.4 - [facility] long term care (current) use of insulin Status: Acute Assessment and Plan: Continue Accu-Cheks with sliding scale insulin, monitor (6) Chronic obstructive pulmonary disease: Code(s): J44.9 - Chronic obstructive pulmonary disease, unspecified Status: Acute Assessment and Plan: Stable, appears to be on no medications, will start spiriva (7) Dementia: Code(s): F03.90 - Unspecified dementia without behavioral disturbance Status: Chronic Assessment and Plan: stable (8) Hyperlipidemia: Code(s): E78.5 - Hyperlipidemia, unspecified Status: Chronic (9) Congestive heart failure: Code(s): I50.9 - Heart failure, unspecified Status: Chronic Assessment and Plan: Chronic grade 3 diastolic heart failure with severe pulm HTN, normal EF (10) Transaminitis: Code(s): R74.01 - Elevation of levels of liver transaminase levels Status: Acute Assessment and Plan: Suspect this is secondary to elevated blood pressure, recheck tomorrow Plan DVT prophylaxis with SCDs GI prophylaxis not indicated Code status full code Subjective Date/time seen: 04/10/22 08:12 Interval history: Patient states she feels a little weak today. She states she feels a little better than yesterday in some ways, little worse than others. No overnight events noted. No chest pain or shortness of breath. No nausea, vomiting or diarrhea. No fevers or chills. Review of Systems Review of Systems: 12 point review of systems was assessed and was negative except as noted in the HPI Exam Narrative: General: No acute distress, alert and oriented per baseline HEENT: Atraumatic, normocephalic, mucous membranes moist CV: Regular rate and rhythm, S1, S2 Lungs: Clear to auscultation bilaterally, no rales or crackles noted, no wheezes, good air entry Abdomen: Soft, nontender, nondistended Extremities: Normal to inspection Skin: No rashes noted, no lesions or wounds seen Psych: Euthymic, normal affect Objective Data Vital Signs Vital Signs: Vital Signs - 24 hr 04/09/22 08:24 04/09/22 10:46 04/09/22 10:47 Temperature 98.0 F Pulse Rate 53 L 59 L 51 L Respiratory Rate 18 Blood Pressure 187/82 H 192/63 H Pulse Oximetry 94 Oxygen Delivery 04/09/22 10:48 04/09/22 12:00 04/09/22 16:00 Temperature Pulse Rate 101 H 61 51 L Respiratory Rate Blood Pressure 157/98 H Pulse Oximetry Oxygen Delivery 04/09/22 16:49 04/09/22 20:00 04/09/22 20:00 Temperature 97.6 F 97.6 F Pulse Rate 51 L 48 L 51 L Respiratory Rate 18 18 18 Blood Pressure 171/61 H 171/61 H Pulse Oximetry 98 98 98 Oxygen Delivery Room Air 04/09/22 20:54 04/09/22 20:55 04/09/22 20:56 Temperature Pulse Rate Respiratory Rate Blood Pressure 150/51 H 198/61 H 216/78 H Pulse Oximetry Oxygen Delivery 04/09/22 20:00 04/09/22 21:15 04/09/22 22:00 Temperature Pulse Rate 49 L 51 L 46 L Respiratory Rate Blood Pressure Pulse Oximetry 96 Oxygen Delivery Room
[2022-04-10 08:28] LABS: Alanine Aminotransferase 126 U/L (6-35); Albumin Level 3.6 g/dL (3.5-5.1); Alkaline Phosphatase 108 U/L (38-126); Anion Gap 13 mmol/L (8-16); Aspartate Amino Transferase 233 U/L (14-36); Bilirubin,Total 0.5 mg/dL (0.2-1.3); Blood Urea Nitrogen 29 mg/dL (7-17); Calcium 9.2 mg/dL (8.4-10.2); Carbon Dioxide 23 mmol/L (22-30); Chloride 108 mmol/L (98-107); Estimated CRCL calculation 30 ml/min; Estimated Glomerular Filt Rate 43; Glucose 95 mg/dL (65-110); Magnesium 2.1 mg/dL (1.6-2.3); Potassium 4.5 mmol/L (3.4-5.0); Sodium 144 mmol/L (137-145)
[2022-04-10] MEDS: GABAPENTIN 300 MG CAPSULE 600 MG PO (09:11)
[2022-04-10] MEDS: ROSUVASTATIN 10 MG TABLET PO (09:11)
[2022-04-10] MEDS: amLODIPine BESYLATE 5 MG TABLET 10 MG PO (09:12)
[2022-04-10] MEDS: ENOXAPARIN 40 MG/0.4 ML SYRINGE SUB-Q (09:12)
[2022-04-10] MEDS: EMPAGLIFLOZIN 10 MG TABLET PO (09:12)
[2022-04-10] MEDS: atenoloL 12.5 MG TABLET PO (09:12)
[2022-04-10] MEDS: hydrALAZINE 10 MG TABLET PO ×4 (09:13→21:01)
[2022-04-10 12:18] LABS: Glucose Point of Care 297 mg/dl (65-105)
--- NOTE | 2022-04-10 12:19 | PC.NURSE ---
This patient, Terri Rodriguez, was transferred to [261 ] on 04/10/22 at 1219. Personal belongings sent with patient. Report given to [ ANGEL Mckeon @ [phone]]. Appropriate documentation sent with patient.
--- NOTE | 2022-04-10 12:35 | ADMGEN ---
This patient, Terri Rodriguez, was admitted to 2 Medical Room 261-01. Patient/family oriented to hospital policies and general routines including ID bracelet, bed and alarms, visiting hours, pain management, procedures, bathroom and other care routines, personal items, smoking policy, room service/diet, and visiting hours. Information on how to activate the Rapid Response Team has been discussed. Patient/Family are encouraged to report perceived risks to care and to ask questions if they do not understand what they are told or what they should do. Report received from ANGEL Gonzales
[2022-04-10 12:45] LABS: Glucose Point of Care 271 mg/dl (65-105)
[2022-04-10] MEDS: INSULIN ASPART (*BKC) 100 UNITS/ML SUB-Q ×2 (12:47→18:54)
[2022-04-10 18:52] LABS: Glucose Point of Care 219 mg/dl (65-105)
[2022-04-10] MEDS: GABAPENTIN 400 MG CAPSULE 1200 MG PO (21:01)
[2022-04-10] MEDS: LATANOPROST 0.005% OP SOLN 2.5 ML BTL 1 DROP EACH EYE (21:01)
[2022-04-10 21:06] LABS: Glucose Point of Care 197 mg/dl (65-105)
[2022-04-10] MEDS: INSULIN GLARGINE (*BKC) 100 UNITS/ML 25 UNITS SUB-Q (21:06)
[2022-04-11] VITALS (10 sets, daily range): BP systolic 148–183; BP diastolic 55–79; PULSE 43–58; RESP 18; TEMP 36.2–36.4; O2SAT 97–100
[2022-04-11 05:53] LABS: Basophils Absolute Auto 0.1 K/mm3 (0.0-0.1); Basophils Percent Auto 0.7 % (0.2-1.2); Eosinophils Absolute Auto 0.4 K/mm3 (0-0.3); Hematocrit 41.6 % (37.0-47.0); Hemoglobin 13.4 g/dL (12.0-15.0); Immature Granulocyte Absolute 0.02 K/mm3 (0.00-0.031); Immature Granulocyte Percent A 0.2 % (0-0.5); Lymphocytes Absolute Auto 4.11 K/mm3 (0.9-3.2); Lymphocytes Percent Auto 50.5 % (18.3-44.2); Mean Corpuscular HGB Conc 32.2 g/dl (32-36); Mean Corpuscular Hemoglobin 29.1 pg (26-34); Mean Corpuscular Volume 90.4 fl (80-100); Mean Platelet Volume 11.2 fl (7.4-10.4); Monocytes Absolute Auto 0.9 K/mm3 (0.1-0.6); Monocytes Percent Auto 11.2 % (2.6-8.5); Neutrophils Absolute Auto 2.6 K/mm3 (1.3-6.7); Neutrophils Percent Auto 32.4 % (45.5-73.1); Platelet Count Result 199 k/mm3 (150-375); Red Cell Distribution Width 14.4 % (11.5-14.5); White Blood Count 8.1 K/mm3 (4.5-10.0)
[2022-04-11] MEDS: GLUCOSE ORAL GEL 15 GM OF GLUCSE IN 37.5 GM TUBE PO (06:12)
[2022-04-11 06:26] LABS: Alanine Aminotransferase 75 U/L (6-35); Albumin Level 3.2 g/dL (3.5-5.1); Alkaline Phosphatase 90 U/L (38-126); Anion Gap 8 mmol/L (8-16); Aspartate Amino Transferase 72 U/L (14-36); Bilirubin,Total 0.3 mg/dL (0.2-1.3); Blood Urea Nitrogen 27 mg/dL (7-17); Calcium 9.2 mg/dL (8.4-10.2); Carbon Dioxide 22 mmol/L (22-30); Chloride 109 mmol/L (98-107); Estimated CRCL calculation 30 ml/min; Estimated Glomerular Filt Rate 43; Glucose 51 mg/dL (65-110); Potassium 4.1 mmol/L (3.4-5.0); Sodium 139 mmol/L (137-145)
[2022-04-11 06:44] LABS: Glucose Point of Care 96 mg/dl (65-105)
[2022-04-11 06:44] LABS: Glucose Point of Care 55 mg/dl (65-105)
[2022-04-11 06:44] LABS: Glucose Point of Care 53 mg/dl (65-105)
--- NOTE | 2022-04-11 07:34 | PM.DS ---
DS: Admitting Diagnosis Discharge Date April 11, 2022 Admitting Diagnosis Hyperkalemia DS: Discharge Diagnosis Discharge Diagnosis (1) Bradycardia: Code(s): R00.1 - Bradycardia, unspecified Status: Acute Assessment and Plan: Decrease atenolol dose from 25-12.5 (2) Hyperkalemia: Code(s): E87.5 - Hyperkalemia Status: Acute Assessment and Plan: Suspect this is secondary to progressive kidney disease associated with lisinopril use as opposed to fruit intake, will decrease lisinopril and start hydralazine, consider nephrology consult outpatient (3) Syncope: Code(s): R55 - Syncope and collapse Status: Acute Assessment and Plan: Likely secondary to arrhythmia from the severe hyperkalemia, resolved (4) Hypertension: Code(s): I10 - Essential (primary) hypertension Status: Acute (5) Insulin dependent type 2 diabetes mellitus: Code(s): E11.9 - Type 2 diabetes mellitus without complications; Z79.4 - terminal carman (current) use of insulin Status: Acute Assessment and Plan: Continue Accu-Cheks with sliding scale insulin, monitor (6) Chronic obstructive pulmonary disease: Code(s): J44.9 - Chronic obstructive pulmonary disease, unspecified Status: Acute Assessment and Plan: Stable, appears to be on no medications, will start spiriva (7) Dementia: Code(s): F03.90 - Unspecified dementia without behavioral disturbance Status: Chronic Assessment and Plan: stable (8) Hyperlipidemia: Code(s): E78.5 - Hyperlipidemia, unspecified Status: Chronic (9) Congestive heart failure: Code(s): I50.9 - Heart failure, unspecified Status: Chronic Assessment and Plan: Chronic grade 3 diastolic heart failure with severe pulm HTN, normal EF (10) Transaminitis: Code(s): R74.01 - Elevation of levels of liver transaminase levels Status: Acute Assessment and Plan: Suspect this is secondary to elevated blood pressure, recheck tomorrow Plan DVT prophylaxis with SCDs GI prophylaxis not indicated Code status full code DS: Summary Hospital Course Hospital Course: 81-year-old female with insulin-dependent diabetes, congestive heart failure, hypertension, hyperlipidemia, sleep apnea, and COPD who presented to the emergency department via EMS from home for evaluation after an unresponsive episode. She felt okay when she awoke this morning and she and her son went to [place] to have some of her prescriptions filled. While in the car she developed mild, nondescript abdominal discomfort kind of like gas pains however she was able to eat a grilled cheese for lunch. Upon returning home she took Gas-X and when her son went back to check on her, her eyes seemed to roll into the back of her head and she became pale and unresponsive. It took her almost a minute to come to at which time she was a bit confused and she did not recall feeling lightheaded, warm, dizzy, etcetera prior to the episode. Her vital signs were stable on arrival to the ER. Initial workup was significant for a sodium of 137, potassium 7.3, BUN 31, creatinine 1.40, glucose 328. EKG showed a sinus rhythm with incomplete right bundle branch block and some borderline T-wave abnormalities in the inferior leads. She had? routine labs drawn perhaps 3 weeks ago and she received a phone call from her doctor's nurse reporting that my protein levels were a bit high and I was told to cut back on the amount of bananas that a eat. ? The patient's son confirms this message, and they are adamant that they were told that her protein levels were elevated and not her potassium levels. With further questioning it sounds like she does eat quite a bit of fruit in a day, usually at least 1 good sized banana in addition to an apple or plum, a nectarine, and more recently she has been enjoying some grapefruit as well. She has been on lisinopril for ma
[2022-04-11] MEDS: GABAPENTIN 300 MG CAPSULE 600 MG PO (08:09)
[2022-04-11] MEDS: ROSUVASTATIN 10 MG TABLET PO (08:09)
[2022-04-11] MEDS: ENOXAPARIN 40 MG/0.4 ML SYRINGE SUB-Q (08:09)
[2022-04-11] MEDS: hydrALAZINE 10 MG TABLET PO ×2 (08:10→12:23)
[2022-04-11] MEDS: EMPAGLIFLOZIN 10 MG TABLET PO (08:10)
[2022-04-11] MEDS: amLODIPine BESYLATE 5 MG TABLET 10 MG PO (08:10)
[2022-04-11 08:12] LABS: Glucose Point of Care 135 mg/dl (65-105)
[2022-04-11 12:29] LABS: Glucose Point of Care 139 mg/dl (65-105)
[2022-04-11 12:29] LABS: Glucose Point of Care 134 mg/dl (65-105)
== END 2022-04-11 16:22 | disposition home health service (06) | DRG 641 ==
LOC: ANHED 17:53 → ANHIMU 20:42 → ANH2MED 04-10 12:26
PROVIDERS: Emergency Medicine; Physician Assistant; Admitting Provider Internal Medicine; Emergency Provider Emergency Medicine; PCP Family Medicine; Visit Provider Student in an Organized Health Care Education/Training Program
DX: E87.5 Hyperkalemia (principal); N39.0 Urinary tract infection, site not specified; I50.32 Chronic diastolic (congestive) heart failure; T46.4X5A Adverse effect of angiotensin-converting-enzyme inhibitors, initial encounter; I11.0 Hypertensive heart disease with heart failure; I27.20 Pulmonary hypertension, unspecified; E11.40 Type 2 diabetes mellitus with diabetic neuropathy, unspecified; E11.319 Type 2 diabetes mellitus with unspecified diabetic retinopathy without macular edema; E78.5 Hyperlipidemia, unspecified; J44.9 Chronic obstructive pulmonary disease, unspecified; H40.9 Unspecified glaucoma; N28.9 Disorder of kidney and ureter, unspecified; R00.1 Bradycardia, unspecified; G47.30 Sleep apnea, unspecified; F03.90 Unspecified dementia, unspecified severity, without behavioral disturbance, psychotic disturbance, mood disturbance, and anxiety; Z79.4 Long term (current) use of insulin; Z85.41 Personal history of malignant neoplasm of cervix uteri; Z90.49 Acquired absence of other specified parts of digestive tract; Z90.710 Acquired absence of both cervix and uterus; Z87.891 Personal history of nicotine dependence
CPT/HCPCS: 36415; 36600; 51701; 80048; 80053; 81001; 82805; 82948; 83036; 83690; 83735; 83880; 85025; 85027; 87040; 87086; 93005; 93306; 93880; 96361; 96365; 96366; 96372; 96374; 96375; 99285; A9270; G0378; J0610; J0696; J1650; J1815; J7030

== ENCOUNTER 2022-06-10 06:16 | Inpatient (IN) | payer MEDICARE, OTHER, SELFPAY ==
[2022-06-10] VITALS (37 sets, daily range): BP systolic 112–180; BP diastolic 53–163; PULSE 62–90; RESP 12–27; TEMP 36.2–36.7; O2SAT 87–98; BMI 33.2; BMI 32.5
--- NOTE | ~2022-06-10 | XR_ITS ---
EXAMINATION: XR chest 1V portable DATE: 06/12/2022 06:19 INDICATION: Pneumonia. TECHNIQUE: A single frontal view of the chest was obtained. COMPARISON: Chest single view 06/11/2022 FINDINGS: There are small pleural effusions. There are airspace opacities in the mid and lower lung z ones. No pneumothorax. Cardiomegaly is noted. Calcified hilar lymph nodes are consistent with old gra nulomatous disease. IMPRESSION: 1. Stable airspace opacities in the mid and lower lung zones, consistent with atelectasis versus pneu monia. 2. Small pleural effusions with improvement on the left. 3. Cardiomegaly. Reviewed, dictated and finalized at location A. UP MACHINE OPERATOR IMPRESSION: 1. Stable airspace opacities in the mid and lower lung zones, consistent with a telectasis versus pneumonia. 2. Small pleural effusions with improvement on the left. 3. Cardiomegaly.
--- NOTE | ~2022-06-10 | US_ITS ---
EXAMINATION: US venous doppler UE RT DATE: 06/10/2022 20:50 INDICATION: Right upper limb swelling TECHNIQUE: Grayscale ultrasound images without and with compression and Doppler ultrasound images of the right upper extremity veins were obtained. COMPARISON: None. FINDINGS: The right internal jugular vein, subclavian vein, axillary vein, brachial veins, basilic vein, cephal ic vein, radial vein, and ulnar vein are patent. IMPRESSION: 1. No evidence of deep venous thrombosis. Reviewed, dictated and finalized at location F. O AND SOUND RECORDER
--- NOTE | ~2022-06-10 | US_ITS ---
EXAMINATION: US thoracentesis DATE: 06/17/2022 12:20 INDICATION: pleural effusion TECHNIQUE: The procedure and its risks, benefits, and alternatives were discussed with the patient. P otential risks discussed included bleeding, infection, and pneumothorax. The patient understood the r isks and agreed to proceed. The skin was prepped and draped in sterile fashion. 1% lidocaine was used for local anesthesia. Under ultrasound guidance, a 5 Fr catheter with trochar was advanced into the right pleural effusion. Fluid was aspirated. The catheter was removed, and a dressing was applied. Th ere were no immediate complications. FINDINGS: Ultrasound images demonstrate a right pleural effusion and the catheter within the fluid. IMPRESSION: 1. Successful ultrasound-guided thoracentesis yielding 550 mL of danica-colored fluid. Reviewed, dictated and finalized at location A. E OVER ARTIST
--- NOTE | ~2022-06-10 | CT_ITS ---
EXAMINATION: CT brain wo con DATE: 06/10/2022 08:53 INDICATION: Head injury. TECHNIQUE: Computed tomography (CT) of the head was performed without intravenous contrast. The mA wa s adjusted according to patient size. Iterative reconstruction technique was employed. The dose-lengt h product was 605.33 mGy-cm. COMPARISON: Head CT 11/21/2020 FINDINGS: There are scattered areas of low attenuation in the cerebral white matter. There is no intr acranial hemorrhage, acute infarction, or abnormal intracranial mass lesion. The ventricles are thompson l in size. There are likely changes of ocular lens replacement surgeries. There is mild mucosal thick ening in the ethmoid sinuses. There are trace bilateral mastoid effusions. IMPRESSION: 1. Stable moderate nonspecific cerebral white matter disease, which likely represents chronic small v essel ischemic disease. Reviewed, dictated and finalized at location A. INSERTER IMPRESSION: 1. Stable moderate nonspecific cerebral white matter disease, which likely repr esents chronic small vessel ischemic disease.
--- NOTE | ~2022-06-10 | US_ITS ---
US renal BI DATE: 06/10/2022 11:34 INDICATION: Acute renal insufficiency TECHNIQUE: Real-time imaging of the kidneys and urinary bladder COMPARISON: 08/09/2017 CT abdomen pelvis FINDINGS: Right kidney measures approximately 10.2 cm height, left kidney 10.2 cm length as well. Approximately 9 mm superior pole left renal calculus. No renal mass lesion or hydronephrosis is evident. There is mild dependent sludge accumulation in the urinary bladder. IMPRESSION: Left nephrolithiasis Sludge in the dependent aspect of the urinary bladder Reviewed, dictated and finalized at Location A. Reviewed, dictated and finalized at location A. OPERATOR
--- NOTE | ~2022-06-10 | XR_ITS ---
EXAMINATION: XR chest 1V portable DATE: 06/10/2022 07:47 INDICATION: Shortness of breath. TECHNIQUE: A single frontal view of the chest was obtained. COMPARISON: Chest single view 11/21/2020, CT abdomen and pelvis 08/09/2017 FINDINGS: There are airspace opacities in the mid and lower lung zones, right worse than left. There are small pleural effusions. No pneumothorax. Cardiomegaly is noted. IMPRESSION: 1. Airspace opacities in the mid and lower lung zones, consistent with atelectasis versus pneumonia. 2. Small pleural effusions. 3. Cardiomegaly. Reviewed, dictated and finalized at location A. 'S ELECTRONIC WARFARE OFFICER IMPRESSION: 1. Airspace opacities in the mid and lower lung zones, consistent with atelecta sis versus pneumonia. 2. Small pleural effusions. 3. Cardiomegaly.
--- NOTE | ~2022-06-10 | XR_ITS ---
XR chest 1V portable DATE: 06/20/2022 06:03 INDICATION: Acute respiratory failure with hypercapnia. Mechanical ventilation. TECHNIQUE: Portable AP chest on 06/16/2022 0533 hours COMPARISON: 06/19/2022 portable AP chest at 0525 hours FINDINGS: ET and NG tubes in satisfactory position. Left upper extremity PIC catheter overlies right atrium. Severe diffuse bilateral pulmonary infiltrates, more prominent on the right, increased since 06/19/20 22. The right costophrenic angle is obliterated. Right pleural effusion is suspected. Cardiomegaly. Aortic arch calcification. Diffuse osteopenia. Degenerative change of the thoracic and lumbar spine. IMPRESSION: Diffuse prominent bilateral pulmonary infiltrates, increased since 06/19/2022 Reviewed, dictated and finalized at location A. RVISOR BAKING
--- NOTE | ~2022-06-10 | XR_ITS ---
EXAMINATION: XR chest 1V portable DATE: 06/11/2022 05:51 INDICATION: Respiratory failure. TECHNIQUE: A single frontal view of the chest was obtained. COMPARISON: Chest single view 06/10/2022, CT abdomen and pelvis 08/09/2017 FINDINGS: There are small pleural effusions. There are airspace opacities in the mid and lower lung z ones. No pneumothorax. Cardiomegaly is noted. IMPRESSION: 1. Stable airspace opacities in the mid and lower lung zones, consistent with atelectasis versus pneu monia. 2. Stable small pleural effusions. 3. Cardiomegaly. Reviewed, dictated and finalized at location A. HEARTH FURNACE OPERATOR IMPRESSION: 1. Stable airspace opacities in the mid and lower lung zones, consistent with a telectasis versus pneumonia. 2. Stable small pleural effusions. 3. Cardiomegaly.
--- NOTE | ~2022-06-10 | CT_ITS ---
EXAMINATION: CT diagnostic chest wo con DATE: 06/20/2022 11:02 INDICATION: Respiratory failure TECHNIQUE: Computed tomography (CT) of the chest was performed without intravenous contrast. Automate d exposure control and iterative reconstruction technique were employed. Exam dose: 372.31 mGy-cm to khushi exam DLP. COMPARISON: 06/20/2022 portable AP chest 06/16/2022 CT chest FINDINGS: Left upper extremity PIC catheter in superior vena cava. ET and NG tubes in satisfactory position. Cardiomegaly, coronary artery calcification. Mitral annulus prominent calcification. No pericardial e ffusion. Thoracic aortic calcification without evidence of aneurysm. Bilateral hilar and mediastinal lymphadenopathy, likely reactive. There are severe patchy consolidating infiltrates throughout both lungs, with extensive air bronchogr ams of upper and lower lobes and middle lobe; the pulmonary consolidating infiltrates are dramaticall y increased upper lobes and middle lobe since 06/16/2022. Moderately large right and moderate left pleural effusions, with persistent associated compressive at electasis of the lower lobes. Extensive degenerative spurring of the thoracic spine. No suspicious osteolytic or osteoblastic lesio ns are noted. IMPRESSION: Considerably increased patchy consolidation of the lungs, particularly lobes, since 05/29 Persistent cardiomegaly, pleural effusions and compressive bilateral lower lobe atelectasis Reviewed, dictated and finalized at Location A. Reviewed, dictated and finalized at location A. LE ELECTRONICS INSTALLER IMPRESSION: Considerably increased patchy consolidation of the lungs, particul thais lobes, since 06/16/2022 Persistent cardiomegaly, pleural effusions and compressive bilateral lower lobe atelectasis
--- NOTE | ~2022-06-10 | XR_ITS ---
EXAMINATION: XR chest 1V portable DATE: 06/19/2022 06:14 INDICATION: Respiratory failure. TECHNIQUE: A single frontal view of the chest was obtained. COMPARISON: Chest single view 06/18/2022, chest CT 06/16/2022 FINDINGS: There are airspace opacities in all lung zones, worst in right mid and lower lung zones and left lower lung zone. There is a small right pleural effusion. No pneumothorax. Cardiomegaly is note d. The endotracheal tube tip is 3.2 cm above the joe. The nasogastric tube tip is beyond the infer ior margin of the radiograph, but at least to the stomach. A left upper extremity peripherally insert ed central venous catheter (PICC) is seen with tip at the superior cavoatrial junction. IMPRESSION: 1. Diffuse lung disease with worsening on the right, likely a combination of pneumonia and pulmonary edema. 2. Stable small right pleural effusion. 3. Cardiomegaly. Reviewed, dictated and finalized at location A. ENT COORDINATOR IMPRESSION: 1. Diffuse lung disease with worsening on the right, likely a combination of pn eumonia and pulmonary edema. 2. Stable small right pleural effusion. 3. Cardiomegaly.
--- NOTE | ~2022-06-10 | XR_ITS ---
EXAMINATION: XR chest 1V portable INDICATION: Hypoxia TECHNIQUE: Portable AP chest at 1638 hours COMPARISON: 06/12/2022 FINDINGS: Cardiomegaly is noted. There are small to moderate-sized pleural effusions. No pneumothorax is identified. Airspace opacities persist in the mid and lower lung zones with interval worsening an d/or developing in the upper lung zones. IMPRESSION: 1. Cardiomegaly. 2. Small to moderate-sized pleural effusions. 3. Diffuse lung disease with interval worsening, consistent with atelectasis versus pneumonia versus pulmonary edema. Reviewed, dictated and finalized at location F. T MANAGER IMPRESSION: 1. Cardiomegaly. 2. Small to moderate-sized pleural effusions. 3. Diffuse lung disease with interval worsening, consistent with atelectasis ve rsus pneumonia versus pulmonary edema.
--- NOTE | ~2022-06-10 | XR_ITS ---
XR chest 1V portable DATE: 06/21/2022 06:01 INDICATION: Respiratory failure TECHNIQUE: Portable AP chest on 06/21/2022 at 0541 hours COMPARISON: 06/20/2022 portable AP chest at 0533 hours FINDINGS: Persistent severe bilateral patchy consolidating pulmonary infiltrates, without improvement since 06/16/2022. ET and NG tubes in satisfactory position. Left upper extremity PIC catheter in superior vena cava. IMPRESSION: Persistent severe bilateral patchy consolidating infiltrates Reviewed, dictated and finalized at location A. DINATOR OF REHABILITATION SERVICES
--- NOTE | ~2022-06-10 | CT_ITS ---
EXAMINATION: CT diagnostic chest wo con DATE: 06/16/2022 10:26 INDICATION: pleural effusions, CHF TECHNIQUE: Computed tomography (CT) of the chest was performed without intravenous contrast. Addition al 3D reconstructions utilizing coronal maximum intensity projection (MIP) were performed. Automated exposure control and iterative reconstruction technique were employed. The dose-length product was 40 3.60 mGy-cm. COMPARISON: 08/06/2017 FINDINGS: Moderate-sized bilateral posterior layering pleural effusions. Complete collapse of the right lower l obe and near complete collapse of all but a portion of the superior segment of the left lower lobe. M ore patchy consolidation in the dependent aspect of the left upper lobe and lingula and scattered devin undglass opacities in the remainder of the bilateral lungs which could represent either pulmonary juan ma, pneumonia or combination thereof. No pneumothorax. No evident endobronchial filling defects. Mild cardiomegaly. Atherosclerotic coronary artery calcifications, aortic valve calcific location and mor e dense mitral annular calcific location. Small amount of pericardial fluid at the anterior base of t he heart which likely still within normal limits. Atherosclerotic calcification along the normal lincoln jacquelyn thoracic aorta. There is mild likely reactive mediastinal lymphadenopathy. Multinodular goiter in cluding a few calcified nodules. Visualized upper abdomen is unremarkable. Moderate to severe thoraci c and lower cervical spondylosis with bridging osteophytes at multiple levels consistent with diffuse idiopathic skeletal hyperostosis (DISH). IMPRESSION: 1. Diffuse bilateral pulmonary edema and/or pneumonia. 2. Moderate-sized bilateral posterior layering pleural effusions with complete collapse of the right lower lobe and near complete collapse of the left lower lobe. 3. Cardiomegaly. 4. Likely reactive mediastinal lymphadenopathy. 5. Multinodular goiter. Reviewed, dictated and finalized at location A. [employer] IMPRESSION: 1. Diffuse bilateral pulmonary edema and/or pneumonia. 2. Moderate-sized bilateral posterior layering pleural effusions with complete collapse of the right lower lobe and near complete collapse of the left lower l obe. 3. Cardiomegaly. 4. Likely reactive mediastinal lymphadenopathy. 5. Multinodular goiter.
--- NOTE | ~2022-06-10 | XR_ITS ---
EXAMINATION: XR chest 1V portable DATE: 06/18/2022 05:52 INDICATION: Respiratory failure. TECHNIQUE: A single frontal view of the chest was obtained. COMPARISON: Chest single view 06/17/2022 FINDINGS: There are airspace opacities in all lung zones bilaterally. There are small pleural effusio ns. No pneumothorax. Cardiomegaly is noted. The endotracheal tube tip is 3.7 cm above the joe. The nasogastric tube tip is beyond the inferior margin of the radiograph, but at least to the stomach. IMPRESSION: 1. Stable diffuse lung disease, consistent with pulmonary edema versus pneumonia. 2. Small pleural effusions with worsening on the right. 3. Cardiomegaly. Reviewed, dictated and finalized at location A. DRIVER IMPRESSION: 1. Stable diffuse lung disease, consistent with pulmonary edema versus pneumoni a. 2. Small pleural effusions with worsening on the right. 3. Cardiomegaly.
--- NOTE | ~2022-06-10 | XR_ITS ---
EXAMINATION: XR chest 1V portable DATE: 06/17/2022 05:40 INDICATION: Pleural effusion. Acute respiratory failure. TECHNIQUE: A single frontal view of the chest was obtained. COMPARISON: Chest single view 06/16/2022, chest CT 06/16/2022 FINDINGS: There are airspace opacities in right mid and lower lung zones and all left lung zones. The re are moderate-sized pleural effusions. No pneumothorax. Cardiomegaly is noted. IMPRESSION: 1. Stable airspace opacities in right mid and lower lung zones and all left lung zones, consistent wi th pulmonary edema versus pneumonia. 2. Stable moderate-sized pleural effusions. 3. Cardiomegaly. Reviewed, dictated and finalized at location A. ING OR SKATING FRONT DESK CLERK IMPRESSION: 1. Stable airspace opacities in right mid and lower lung zones and all left zamzam g zones, consistent with pulmonary edema versus pneumonia. 2. Stable moderate-sized pleural effusions. 3. Cardiomegaly.
--- NOTE | ~2022-06-10 | XR_ITS ---
EXAMINATION: XR abdomen NG/feed tube insert DATE: 06/17/2022 23:40 INDICATION: Orogastric tube placement. TECHNIQUE: A semierect view of the abdomen was obtained. COMPARISON: None. FINDINGS: The lower abdomen is excluded. There are no dilated loops of bowel. The nasogastric tube ti p is in the stomach. IMPRESSION: 1. Nasogastric tube tip in the stomach. Reviewed, dictated and finalized at location A. GER GARAGE
--- NOTE | ~2022-06-10 | XR_ITS ---
EXAMINATION: XR chest 1V portable DATE: 06/17/2022 23:40 INDICATION: Intubation. TECHNIQUE: A single frontal view of the chest was obtained. COMPARISON: Chest single view 06/17/2022 FINDINGS: There are airspace opacities in all lung zones bilaterally. There are small pleural effusio ns. No pneumothorax. Cardiomegaly is noted. The endotracheal tube tip is 2.6 cm above the joe. The nasogastric tube tip is beyond the inferior margin of the radiograph, but at least to the stomach. IMPRESSION: 1. Diffuse lung disease with worsening on the right, consistent with pulmonary edema versus pneumonia . 2. Small pleural effusions with worsening on the right. 3. Cardiomegaly. Reviewed, dictated and finalized at location A. ORATE COMMUNICATIONS MANAGER IMPRESSION: 1. Diffuse lung disease with worsening on the right, consistent with pulmonary edema versus pneumonia. 2. Small pleural effusions with worsening on the right. 3. Cardiomegaly.
--- NOTE | ~2022-06-10 | US_ITS ---
EXAMINATION: US thoracentesis DATE: 06/18/2022 12:08 INDICATION: Left pleural effusion TECHNIQUE: The procedure and its risks and benefits were discussed with the patient. Potential risks discussed included bleeding, infection, and pneumothorax. The patient understood the risks and agreed to proceed. The skin was prepped and draped in sterile fashion. 1% lidocaine was used for local anes thesia. Under ultrasound guidance, a 5 Fr catheter with trochar was advanced into the left pleural ef fusion. Fluid was aspirated. The catheter was removed, and a dressing was applied. There were no imme diate complications. FINDINGS: Ultrasound images demonstrate a moderate-sized left pleural effusion and the catheter within the flui d. IMPRESSION: 1. Successful ultrasound-guided thoracentesis yielding 900 mL of reddish danica-colored fluid. Reviewed, dictated and finalized at location A. GER TRAFFIC IMPRESSION: 1. Successful ultrasound-guided thoracentesis yielding 900 mL of reddish danica -colored fluid.
--- NOTE | ~2022-06-10 | XR_ITS ---
EXAMINATION: XR chest 1V portable DATE: 06/16/2022 09:10 INDICATION: Increasing oxygen requirements TECHNIQUE: frontal view of the chest was obtained. COMPARISON: Chest radiograph dated 06/14/2022 FINDINGS: No significant interval change accounting for slight leftward rotation of the patient. Again seen are basilar predominant gradient of hazy airspace opacities throughout the left lung and in the right mi d to lower lung zone with more dense opacities and blunting at the costophrenic angles consistent wit h small to moderate-sized bilateral posterior layering pleural effusions with associated basilar atel ectasis and/or pneumonia. No pneumothorax. Cardiomegaly. IMPRESSION: 1. Unchanged small to moderate-sized bilateral posterior layering pleural effusions with associated a telectasis and/or pneumonia in the lower lung zones. 2. Cardiomegaly. Reviewed, dictated and finalized at location A. BUSTER IMPRESSION: 1. Unchanged small to moderate-sized bilateral posterior layering pleural effus ions with associated atelectasis and/or pneumonia in the lower lung zones. 2. Cardiomegaly.
--- NOTE | ~2022-06-10 | XR_ITS ---
EXAMINATION: XR_[id number]_CR DATE: 06/18/2022 12:10 INDICATION: Left pleural effusion TECHNIQUE: frontal view of the chest was obtained. COMPARISON: Chest radiograph dated 06/17/2022 FINDINGS: Endotracheal tube tip 3.8 cm above the joe. Nasogastric tube extends below the left hemidiaphragm with distal tip collimated off the study. Resolution of prior left pleural effusion postthoracentesis with decrease in the opacification of the left lower lung zone. Interval increase in opacities in the right mid and lower lung zones due in pa rt to reaccumulation of a small right pleural effusion. No pneumothorax cardiomegaly. IMPRESSION: 1. Interval resolution of prior left pleural effusion with improved aeration in the left lower lung z one. 2. Recanalization of a small right pleural effusion. 3. In bilateral airspace opacities, greater and with interval increase on the right which could repre sent pneumonia, pulmonary edema, atelectasis or some combination thereof. Reviewed, dictated and finalized at location A. TARY EQUIPMENT SPECIALIST IMPRESSION: 1. Interval resolution of prior left pleural effusion with improved aeration in the left lower lung zone. 2. Recanalization of a small right pleural effusion. 3. In bilateral airspace opacities, greater and with interval increase on the r ight which could represent pneumonia, pulmonary edema, atelectasis or some comb ination thereof.
--- NOTE | ~2022-06-10 | XR_ITS ---
EXAMINATION: XR_[id number]_CR DATE: 06/17/2022 12:15 INDICATION: Right pleural effusion status post thoracentesis. TECHNIQUE: A single frontal view of the chest was obtained. COMPARISON: Chest single view at 5:17 AM FINDINGS: There is a moderate-sized left pleural effusion. There are airspace opacities in the perihi lar regions and left lung base. No pneumothorax. Cardiomegaly is noted. IMPRESSION: 1. Airspace opacities in the perihilar regions and at left lung base with improvement on the right, c onsistent with pulmonary edema versus pneumonia. 2. Stable moderate-sized left pleural effusion. 3. Cardiomegaly. Reviewed, dictated and finalized at location A. ING OPERATOR IMPRESSION: 1. Airspace opacities in the perihilar regions and at left lung base with impro vement on the right, consistent with pulmonary edema versus pneumonia. 2. Stable moderate-sized left pleural effusion. 3. Cardiomegaly.
--- NOTE | 2022-06-10 06:30 | ECG_ITS ---
Rate 84 CA 0 QRSd 105 QT 396 QTc 470 --[place] [facility]-- P QRS 38 T 2 SINIS RHYTHM FREQUENT ATRIAL PREMATURE COMPLEXES AND VENTRICULAR PREMATURE COMPLEX INCOMPLETE RIGHT BUNDLE BRANCH BLOCK DELAYED PRECORDIAL R/S TRANSITION NONSPECIFIC T-WAVE ABNORMALITY- INF/HIGH LAT LEADS BASELINE ARTIFACT- I, III, V1-V3 ABNORMAL ECG Electronically Signed On 06-11-2022 8:03:47 MEDICAL TERMINOLOGIST by Reji Barnett D.O. COMPARED TO ECG 04/08/2022 15:53:46 NO SIGNIFICANT CHANGES MTDD
[2022-06-10 06:41] LABS: Carboxyhemoglobin 1.2 % THb (0-2.0); Fractional Inspired Oxygen 100 %; HCO3 ABG 26.4 mEq/l (22.0-26.0); Methemoglobin ABG 0.3 %THb (0-1.5); Oxygen Content ABG 16.2 %vol (16.0-22.0); Oxygen Saturation ABG 94.4 % (95.0-100.0); Oxyhemoglobin 92.6 % THb (90.0-100.0); PCO2 ABG 56.5 mmHg (35.0-45.0); PO2 ABG 80.5 mmHg (80.0-100.0); PO2 FiO2 Ratio Arterial Blood 0.81 %; Reduced Hemoglobin 5.9 %THb (0-5.0); Total Hemoglobin 12.4 g/dL (12.0-18.0)
[2022-06-10 06:43] LABS: Site Drawn RIGHT RADIAL
[2022-06-10 06:44] LABS: Device NON-REBREATHER MASK; Modified Allen's Test Pass
[2022-06-10 06:47] LABS: Basophils Percent Auto 0.3 % (0.2-1.2); Eosinophils Absolute Auto 0.2 K/mm3 (0-0.3); Eosinophils Percent Auto 3.5 % (0-4.4); Hemoglobin 12.2 g/dL (12.0-15.0); Immature Granulocyte Absolute 0.32 K/mm3 (0.00-0.031); Immature Granulocyte Percent A 5.4 % (0-0.5); Lymphocytes Absolute Auto 1.04 K/mm3 (0.9-3.2); Lymphocytes Percent Auto 17.6 % (18.3-44.2); Mean Corpuscular HGB Conc 31.3 g/dl (32-36); Mean Corpuscular Hemoglobin 29.5 pg (26-34); Mean Corpuscular Volume 94.2 fl (80-100); Mean Platelet Volume 9.8 fl (7.4-10.4); Monocytes Absolute Auto 1.1 K/mm3 (0.1-0.6); Monocytes Percent Auto 18.8 % (2.6-8.5); Neutrophils Absolute Auto 3.2 K/mm3 (1.3-6.7); Neutrophils Percent Auto 54.4 % (45.5-73.1); Nucleated Red Blood Cells Absolute Auto 0.1 K/mm3 (0.0-0.012); Platelet Count Result 351 k/mm3 (150-375); Red Blood Count 4.14 M/mm3 (4.2-5.4); Red Cell Distribution Width 14.7 % (11.5-14.5); White Blood Count 5.9 K/mm3 (4.5-10.0)
[2022-06-10] MEDS: ALBUTEROL SULFATE NEB 2.5 MG/3 ML INH 5 MG INHALATION (06:50)
[2022-06-10] MEDS: IPRATROPIUM BR 0.02% INH SOLN 0.5 MG/2.5 ML VIAL INHALATION ×3 (06:51→20:37)
[2022-06-10 06:59] LABS: INR 1.1; Prothrombin Time 13.9 Seconds (11.1-14.7)
[2022-06-10 07:00] LABS: Lactic Acid Reflex 0.8 mmol/L (0.7-2.0); Partial Thromboplastin Time 37.9 SECONDS (22.3-36.8)
[2022-06-10 07:01] LABS: Alanine Aminotransferase 21 U/L (6-35); Albumin Level 3.6 g/dL (3.5-5.1); Alkaline Phosphatase 97 U/L (38-126); Anion Gap 6 mmol/L (8-16); Aspartate Amino Transferase 29 U/L (14-36); Bilirubin,Total 0.3 mg/dL (0.2-1.3); Blood Urea Nitrogen 27 mg/dL (7-17); Carbon Dioxide 27 mmol/L (22-30); Chloride 104 mmol/L (98-107); Estimated CRCL calculation 24 ml/min; Estimated Glomerular Filt Rate 31; Glucose 166 mg/dL (65-110); Sodium 137 mmol/L (137-145)
[2022-06-10 07:12] LABS: NT Pro B Type Natriuretic Pept 6700 pg/mL (5-100); Troponin I 0.026 ng/mL (0.000-0.034)
--- NOTE | 2022-06-10 07:57 | ED.SOB ---
HPI - SOB/Dyspnea General Chief Complaint: Shortness of Breath/Dyspnea Stated Complaint: SOB since Time Seen by Provider: 06/10/22 06:30 Source: patient, EMS and RN notes reviewed Mode of arrival: EMS Limitations: no limitations History of Present Illness HPI Narrative: This is an 82 year old female with history of CHF, COPD, pulmonary hypertension who presents for evaluation of shortness of breath. She states she has been getting progressively more short of breath since friday after her covid vaccination. Her shortness of breath worsened this morning. She also states this morning she was walking like she was drunk. EMS reports patient's oxygen saturation was 50 % on room air so she was placed on nonrebreather. PAtient denies chest pain, cough, nausea, vomiting, diarrhea or fever. Related Data Home Medications Medication Instructions Recorded Confirmed gabapentin 600 mg tablet 1,200 mg PO HS 11/21/20 04/08/22 gabapentin 600 mg tablet 600 mg PO DAILY 11/21/20 04/08/22 insulin glargine 100 unit/mL (3 25 unit subcut HS 11/21/20 04/09/22 mL) subcutaneous pen (Lantus Solostar U-100 Insulin) latanoprost 0.005 % eye drops 1 drp EACH EYE HS 11/21/20 04/08/22 loperamide 2 mg tablet (Imodium 2 mg PO QID PRN Diarrhea 11/21/20 04/08/22 A-D) rosuvastatin 10 mg tablet 10 mg PO DAILY 11/21/20 04/08/22 empagliflozin 10 mg tablet 10 mg PO DAILY 04/09/22 04/09/22 (Jardiance) Allergies Allergy/AdvReac Type Severity Reaction Status Date / Time codeine Allergy Unknown Unknown Verified 11/21/20 18:05 Review of Systems Review of Systems: All systems reviewed & are unremarkable except as noted in HPI and below Constitutional: Constitutional: Denies chills, Denies fatigue and Denies fever(s) ENT: Denies nasal congestion and Denies sore throat Cardiovascular: Cardiovascular: Denies chest pain, Denies rapid heart rate and Denies radiating jaw, neck or arm pain Respiratory: Respiratory: Denies chest congestion, Denies cough, Denies dyspnea and Denies wheezing Gastrointestinal: Gastrointestinal: Denies abdominal pain, Denies nausea and Denies vomiting PMFSH Past Medical History Medical History Cervical cancer Chronic obstructive pulmonary disease Congestive heart failure Diabetic neuropathy Diabetic retinopathy Glaucoma History of seizure As a child. Hyperlipidemia Hypertension Insulin dependent type 2 diabetes mellitus Obstructive sleep apnea Intolerant to CPAP. Surgical History Surgical History History of appendectomy History of bilateral cataract extraction History of cholecystectomy History of tonsillectomy History of tubal ligation Family History Family History Unknown Adopted Social History Social History (Updated 04/09/22 @ 00:59 by Talia Baptiste PA-C) Social History: The patient lives in [place]. she is a former smoker and quit 35+ years ago. No alcohol or illicit substance abuse. She designates her son, Philip Rodriguez, as her surrogate decision maker and she wishes to be a full code. Spiritual care concerns: No Exam Const: General: no acute distress, alert and ill appearing; No diaphoretic Nutritional Appearance: well nourished Orientation/consciousness: patient oriented x3 Limitations: no limitations HENMT: Head: normal to inspection Throat: posterior oropharynx normal Eyes: Conjunctivae: conjunctivae normal EOM: EOMs intact bilaterally Chest: Chest palpation & inspection: normal inspection of the chest Resp: Effort & Inspection: normal respiratory effort Auscultation: crackles (bilateral) Other: able to speak in complete sentences Cardio: Rate: regular rate Rhythm: abnormal rhythm Heart sounds: no murmurs GI: GI Palp: Yes Soft to palpation, No Tenderness to palpation present (GI), No Guarding due
[2022-06-10 08:10] LABS: Influenza A QL RT-PCR Negative (Negative); Influenza B QL RT-PCR Negative (Negative); SARS-CoV-2 RNA PCR Negative
[2022-06-10] MEDS: FUROSEMIDE INJ 40 MG/4 ML VIAL IV PUSH ×2 (08:40→21:09)
--- NOTE | 2022-06-10 09:53 | PM.IMHP ---
H&P: HPI History of Present Illness Date/Time: 06/10/22 09:53 Chief Complaint: Shortness of breath Narrative: 82yo female with untreated HENRY, HTN, DM and COPD here for shortness of breath and found to have acute respiratory failure. She has bipap in place and hx is somewhat difficult to obtain; son available and provides some details. She was feeling well until after she received her COVID booster 4 days ago. She had her influenza vaccine prior. Patient mostly in a wheelchair but can stand and pivot using a walker. SHe lives alone. She has been feeling tired and dizzy. No CP. She did fall 3 days ago striking the back of her head. She lost her balance but no LOC. She developed a nonproductive cough yesterday. She denies fever, chills, diet if a OLIVA, dysphagia, dysuria, hematuria melena, hematochezia, nausea vomiting, abdominal pain or back pain. Does have intermittent diarrhea with constipation which is chronic. Last bowel movement was yesterday. No calf pain. No pleuritic chest pain. Son has noted some ankle edema over the past 2-3 weeks the patient denies any orthopnea or PND. Ankle edema is mostly when she is in her chair. Patient was last hospitalized in March for syncope found to have hyperkalemia and bradycardia. Her lisinopril and atenolol were stopped. She was started on Norvasc and hydralazine. No other recent changes in her medications. No wheezing. She does not wear oxygen at home. She does have sleep apnea but cannot tolerate noninvasive ventilation. Shortness of breath has progressively worsened. Was much more severe this morning and EMS was contacted. On their evaluation patient had a SpO2 of 50% on room air. She was placed on non-rebreather and brought to the emergency room for evaluation. The emergency room, she was tachypneic. COVID and influenza were negative. White count was normal. Creatinine was elevated to 1.6 which is above her baseline. BNP was 6700. ABG showed 7.28/56/80 on non-rebreather. Chest x-ray showing bilateral mid and lower lung zone airspace disease, cardiomegaly and small pleural effusions. She was treated with a dose of Lasix. She was given nebulizer treatments and started on antibiotics. Blood culture collected. She was admitted for further care Review of Systems Review of Systems: All systems reviewed & are unremarkable except as noted in HPI and below PMFSH Past Medical History Medical History (Updated 06/10/22 @ 10:32 by Lorne Santos MD) Cervical cancer Chronic obstructive pulmonary disease CKD (chronic kidney disease) Congestive heart failure Diabetic neuropathy Diabetic retinopathy Glaucoma History of seizure As a child. Hyperlipidemia Hypertension Insulin dependent type 2 diabetes mellitus Obstructive sleep apnea Intolerant to CPAP. Surgical History Surgical History History of appendectomy History of bilateral cataract extraction History of cholecystectomy History of tonsillectomy History of tubal ligation Family History Family History Unknown Adopted Social History Social History Social History: The patient lives in [place]. she is a former smoker and quit 35+ years ago. No alcohol or illicit substance abuse. She designates her son, Philip Rodriguez, as her surrogate decision maker and she wishes to be a full code. Spiritual care concerns: No Meds Home Medications and Allergies Home Medications Medication Instructions Recorded Confirmed Type gabapentin 600 mg tablet 1,200 mg PO HS 11/21/20 04/08/22 History gabapentin 600 mg tablet 600 mg PO DAILY 11/21/20 04/08/22 History insulin glargine 100 unit/mL (3 25 unit subcut HS 11/21/20 04/09/22 History mL) subcutaneous pen (Lantus Solostar U-100 Insulin) latanoprost 0.005 % eye drops 1 drp EACH EYE HS 11/21/20 04/08/22
[2022-06-10 10:14] LABS: Glucose Point of Care 195 mg/dl (65-105)
[2022-06-10 11:12] LABS: Alveolar/Arterial O2 Gradient 231.5 mmHg; Base Excess ABG -0.6 mEq/l (+/-2.0); Fractional Inspired Oxygen 50 %; HCO3 ABG 26.3 mEq/l (22.0-26.0); Oxygen Content ABG 15.3 %vol (16.0-22.0); Oxygen Saturation ABG 90.7 % (95.0-100.0); Oxyhemoglobin 90.4 % THb (90.0-100.0); PCO2 ABG 53.2 mmHg (35.0-45.0); PO2 ABG 65.2 mmHg (80.0-100.0); pH ABG 7.312 (7.350-7.450)
[2022-06-10 11:13] LABS: Device NON-INVASIVE VENT; Site Drawn RIGHT BRACHIAL
[2022-06-10 11:19] LABS: Non-Invasive Expiratory Pressure 6 CMH2O; Non-Invasive Inspiratory Pressure 14 CMH2O; Non-Invasive Vent Rate 12 /MIN
[2022-06-10 12:15] LABS: Creatine Kinase 60 U/L (30-135)
[2022-06-10 12:25] LABS: Complement C3 131 mg/dL (88-165)
[2022-06-10 12:55] LABS: Troponin I 0.023 ng/mL (0.000-0.034)
[2022-06-10 13:16] LABS: Glucose Point of Care 124 mg/dl (65-105)
[2022-06-10] MEDS: ALBUTEROL SULFATE NEB 2.5 MG/3 ML INH INHALATION ×2 (13:16→20:37)
[2022-06-10 13:35] LABS: Folic Acid > 20.0 ng/mL (2.76->20)
--- NOTE | 2022-06-10 16:41 | ADMGEN ---
This patient, Terri Rodriguez, was admitted to IMU Room 210-01. Patient/family oriented to hospital policies and general routines including ID bracelet, bed and alarms, visiting hours, pain management, procedures, bathroom and other care routines, personal items, smoking policy, room service/diet, and visiting hours. Information on how to activate the Rapid Response Team has been discussed. Patient/Family are encouraged to report perceived risks to care and to ask questions if they do not understand what they are told or what they should do.
[2022-06-10 16:44] LABS: Troponin I 0.022 ng/mL (0.000-0.034)
[2022-06-10 16:53] LABS: Glucose Point of Care 195 mg/dl (65-105)
[2022-06-10 18:02] LABS: Appearance Urine Turbid (Clear); Bilirubin Urine Negative (Negative); Blood Urine 2+ (Negative); Color Urine Yellow (Yellow); Glucose Urine UA 2+ mg/dL (Negative); Ketones Urine Negative (Negative); Leukocyte Esterase Ur 3+ LEU/UL (Negative); Nitrate Urine Negative (Negative); Protein Urine 3+ mg/dL (Negative); Specific Grav Ur 1.015 (1.001-1.035); Urobilinogen Urine 0.2 mg/dL (<2.0); pH Urine 5.5 (5.0-9.0)
[2022-06-10 18:11] LABS: Bacteria Urine 2+ /hpf; WBC Clumps Urine Present /HPF; WBC Urine >75 /hpf
[2022-06-10 18:17] LABS: Add Urine Microscopic? YES
[2022-06-10 18:45] LABS: Complement C3 127 mg/dL (88-165)
[2022-06-10 20:05] LABS: Glucose Point of Care 144 mg/dl (65-105)
[2022-06-10] MEDS: GABAPENTIN 400 MG CAPSULE 1200 MG PO (21:11)
[2022-06-10] MEDS: hydrALAZINE 10 MG TABLET PO (21:13)
[2022-06-10] MEDS: INSULIN GLARGINE (*BKC) 100 UNITS/ML 13 UNITS SUB-Q (21:13)
[2022-06-10] MEDS: LATANOPROST 0.005% OP SOLN 2.5 ML BTL 1 DROP EACH EYE (21:15)
[2022-06-11] VITALS (23 sets, daily range): BP systolic 129–157; BP diastolic 55–98; PULSE 63–94; RESP 18–20; TEMP 36.4–37.6; O2SAT 88–100
[2022-06-11 05:26] LABS: Hemoglobin 11.2 g/dL (12.0-15.0); Mean Corpuscular HGB Conc 29.5 g/dl (32-36); Mean Corpuscular Hemoglobin 28.4 pg (26-34); Mean Corpuscular Volume 96.2 fl (80-100); Mean Platelet Volume 9.6 fl (7.4-10.4); Platelet Count Result 343 k/mm3 (150-375); Red Blood Count 3.95 M/mm3 (4.2-5.4); White Blood Count 6.8 K/mm3 (4.5-10.0)
[2022-06-11 05:35] LABS: Alanine Aminotransferase 18 U/L (6-35); Albumin Level 3.3 g/dL (3.5-5.1); Alkaline Phosphatase 81 U/L (38-126); Anion Gap 10 mmol/L (8-16); Aspartate Amino Transferase 27 U/L (14-36); Bilirubin,Total 0.2 mg/dL (0.2-1.3); Blood Urea Nitrogen 29 mg/dL (7-17); Calcium 7.9 mg/dL (8.4-10.2); Carbon Dioxide 29 mmol/L (22-30); Chloride 101 mmol/L (98-107); Estimated CRCL calculation 22 ml/min; Estimated Glomerular Filt Rate 29; Glucose 120 mg/dL (65-110); Magnesium 2.4 mg/dL (1.6-2.3); Phosphorus 5.4 mg/dL (2.5-4.5); Potassium 4.1 mmol/L (3.4-5.0); Sodium 140 mmol/L (137-145)
[2022-06-11 05:43] LABS: Hemoglobin A1C 9.5 % (<5.7)
--- NOTE | 2022-06-11 05:46 | ECG_ITS ---
Measurements Intervals [place] Rate: 72 P: [place]: 0 QRS: 90 QRSD: 121 T: 60 QT: 409 QTc: 450 Interpretive Statements SINUS RHYTHM FREQUENT ATRIAL PREMATURE COMPLEXES AND VENTRICULAR PREMATURE COMPLEX RIGHT BUNDLE BRANCH BLOCK BASELINE ARTIFACT- II, III, AVF, V1-V2, V4, V6 ABNORMAL ECG COMPARED TO ECG 06/10/2022 06:25:54 RIGHT BUNDLE-BRANCH BLOCK NOW PRESENT Electronically Signed On 06-11-2022 7:53:47 AUXILIARY OPERATOR by Reji Barnett D.O.
[2022-06-11 06:03] LABS: Band Neutrophils Percent 27 % (0-6); Eosinophils Absolute Manual 0.47 K/mm3 (0.02-0.5); Eosinophils Percent Manual 7 % (0-4); Lymphocytes Absolute Manual 1.42 K/mm3 (1.1-4.5); Metamyelocytes Percent 5 %; Monocytes Absolute Manual 0.68 K/mm3 (0.1-0.90); Monocytes Percent Manual 10 % (3-9); Myelocytes Percent 1 %; Neutrophils Percent Manual 29 % (46-73); Nucleated Red Blood Cells 1 %; Total Cells Counted 100
[2022-06-11 06:04] LABS: Anisocytosis 2+ (NORMAL); Macrocytosis 2+ (NORMAL); Microcytosis 1+ (NORMAL); Platelet Estimate Adequate (Adequate); Schistocytes None Seen (NORMAL)
[2022-06-11 06:05] LABS: Atypical Lymphocytes Present; Smudge Cells FEW
[2022-06-11 07:45] LABS: Glucose Point of Care 82 mg/dl (65-105)
[2022-06-11] MEDS: ENOXAPARIN 30 MG/0.3 ML SYRINGE SUB-Q (08:51)
[2022-06-11] MEDS: GABAPENTIN 300 MG CAPSULE 600 MG PO (08:52)
[2022-06-11] MEDS: hydrALAZINE 10 MG TABLET PO ×3 (08:52→20:49)
[2022-06-11] MEDS: ROSUVASTATIN 10 MG TABLET PO (08:52)
[2022-06-11] MEDS: FUROSEMIDE INJ 40 MG/4 ML VIAL IV PUSH ×2 (08:52→20:49)
[2022-06-11] MEDS: amLODIPine BESYLATE 5 MG TABLET 10 MG PO (08:54)
[2022-06-11] MEDS: AZITHROMYCIN 250 MG TABLET PO (08:54)
[2022-06-11] MEDS: EMPAGLIFLOZIN 10 MG TABLET PO (08:55)
[2022-06-11] MEDS: ALBUTEROL SULFATE NEB 2.5 MG/3 ML INH INHALATION ×3 (09:09→21:33)
[2022-06-11] MEDS: IPRATROPIUM BR 0.02% INH SOLN 0.5 MG/2.5 ML VIAL INHALATION ×3 (09:09→21:33)
--- NOTE | 2022-06-11 11:47 | PCRCNOTE ---
06/11/22 0200 neb treatment not given. Window of time for administration has passed. See next scheduled administration.
[2022-06-11 12:03] LABS: Glucose Point of Care 314 mg/dl (65-105)
[2022-06-11] MEDS: INSULIN ASPART (*BKC) 100 UNITS/ML SUB-Q (12:07)
--- NOTE | 2022-06-11 14:55 | PM.IMPN ---
Progress Note: A&P Assessment and Plan (1) Acute respiratory failure with hypoxia and hypercapnia: Code(s): J96.01 - Acute respiratory failure with hypoxia; J96.02 - Acute respiratory failure with hypercapnia Status: Acute Assessment and Plan: Patient presents with SOB and found to have acute respiratory failure and was started on BiPAP. Either COPD exacerbation and/or pneumonia and/or CHF exacerbation. Suspect most likely pneumonia with positive BCx. Condition complicated by her untreated HENRY and severe pHTN. Has toelrated being off BiPAP. Continue nebulizer treatments. Wean O2 as toelrated. Add CPT. (2) Pneumonia: Code(s): J18.9 - Pneumonia, unspecified organism Status: Acute Assessment and Plan: Chest x-ray today showing persistent mid and lower lung airspace opacities. She has a minimal cough. WBC remianing normal but she has 27% bandemia today. Eosinophils elevated at 7% but absolute level normal. BCx growing gram postive cocci in clusters (3of4 bottels). Continue Rocephin. Add Vanco. Repeat BCx in 1-2 days (3) MYRNA (acute kidney injury): Code(s): N17.9 - Acute kidney failure, unspecified Status: Acute Assessment and Plan: Cr 1.6. Baseline 1-1.3. Probably ATN from the respiratory failure, bactermia and hypoxia. Not on diuretics at home. Not on JULIET/ARB. Renal US noted. Cr about the same today. Follow. (4) Dysrhythmia, cardiac: Code(s): I49.9 - Cardiac arrhythmia, unspecified Status: Acute Assessment and Plan: EKG on admission showing NSR with frequent PAC and PVCs. Rt BBB appears to be new but has hx of intermittent Rt BBB. Ectopy also new. Mag and potassium okay. Echo done recently so will not repet but consider FRANDY if persistetn positive BCx. (5) Congestive heart failure: Code(s): I50.9 - Heart failure, unspecified Status: Chronic Assessment and Plan: Has dependent edema noted past few day. BNP 6400 and CXR showing pleural effusions and CMG. Echo from March showing EF 65-70%, Grade III diastolic dysfunction, moderate TR and severe pulmonary HTN (113mmHg). Possibly mild CHF exacerbation but more likely related to severe pulm HTN. Lasix given in ED. Hold on repeating Lasix for now (6) Insulin dependent type 2 diabetes mellitus: Code(s): E11.9 - Type 2 diabetes mellitus without complications; Z79.4 - extermination supervisor (current) use of insulin Status: Acute Assessment and Plan: A1c was 9.5. The patient's blood glucose was reviewed on 06/11 Glucose remains well controlled except 314 before lunch. Continue AccuCheks covering with sliding scale. Hypoglycemia protocol available as needed. Continue tomonitor for now (7) Chronic obstructive pulmonary disease: Code(s): J44.9 - Chronic obstructive pulmonary disease, unspecified Status: Acute Assessment and Plan: Patient has a history of smoking although it does not appear to be excessive. No wheezing appreciated. Continue breathing treatments. (8) Hypertension: Code(s): I10 - Essential (primary) hypertension Status: Acute Assessment and Plan: Patient's blood pressure was reviewed on 06/11 Blood pressure remains reasonably well controlled. Will continue current medications. (9) Obstructive sleep apnea: Code(s): G47.33 - Obstructive sleep apnea (adult) (pediatric) Status: Acute Assessment and Plan: Patient is noncompliant with sleep apnea treatment which is probably contributing to her respiratory failure. Blood gas in March does not show chronic retention. She does have severe pulmonary HTN. As above. (10) CKD (chronic kidney disease): Code(s): N18.9 - Chronic kidney disease, unspecified Status: Acute Assessment and Plan: As above (11) CHI (closed head injury): Code(s): S09.90XA - Unspecified injury of head, initial encounter Status: A
[2022-06-11 18:46] LABS: Glucose Point of Care 281 mg/dl (65-105)
[2022-06-11] MEDS: GABAPENTIN 400 MG CAPSULE 1200 MG PO (20:49)
[2022-06-11] MEDS: LATANOPROST 0.005% OP SOLN 2.5 ML BTL 1 DROP EACH EYE (20:50)
[2022-06-11] MEDS: INSULIN GLARGINE (*BKC) 100 UNITS/ML 13 UNITS SUB-Q (22:01)
[2022-06-12] VITALS (23 sets, daily range): BP systolic 135–159; BP diastolic 42–97; PULSE 68–103; RESP 18–22; TEMP 36.5–37.3; O2SAT 90–98
[2022-06-12] MEDS: IPRATROPIUM BR 0.02% INH SOLN 0.5 MG/2.5 ML VIAL INHALATION ×4 (01:47→20:25)
[2022-06-12] MEDS: ALBUTEROL SULFATE NEB 2.5 MG/3 ML INH INHALATION ×4 (01:47→20:25)
[2022-06-12 04:27] LABS: Hematocrit 34.5 % (37.0-47.0); Hemoglobin 10.6 g/dL (12.0-15.0); Mean Corpuscular HGB Conc 30.7 g/dl (32-36); Mean Corpuscular Hemoglobin 28.2 pg (26-34); Mean Corpuscular Volume 91.8 fl (80-100); Mean Platelet Volume 9.3 fl (7.4-10.4); Platelet Count Result 321 k/mm3 (150-375); Red Blood Count 3.76 M/mm3 (4.2-5.4); Red Cell Distribution Width 14.6 % (11.5-14.5); White Blood Count 11.5 K/mm3 (4.5-10.0)
[2022-06-12 04:45] LABS: Anion Gap 6 mmol/L (8-16); Blood Urea Nitrogen 28 mg/dL (7-17); Calcium 7.9 mg/dL (8.4-10.2); Carbon Dioxide 29 mmol/L (22-30); Chloride 102 mmol/L (98-107); Estimated CRCL calculation 23 ml/min; Estimated Glomerular Filt Rate 31; Glucose 144 mg/dL (65-110); Magnesium 2.3 mg/dL (1.6-2.3); Potassium 3.9 mmol/L (3.4-5.0); Sodium 137 mmol/L (137-145)
[2022-06-12 04:53] LABS: Band Neutrophils Percent 5 % (0-6); Eosinophils Absolute Manual 0.34 K/mm3 (0.02-0.5); Eosinophils Percent Manual 3 % (0-4); Lymphocytes Absolute Manual 1.95 K/mm3 (1.1-4.5); Monocytes Absolute Manual 0.92 K/mm3 (0.1-0.90); Monocytes Percent Manual 8 % (3-9); Neutrophils Absolute Manual 8.28 K/mm3 (1.7-7.2); Neutrophils Percent Manual 67 % (46-73); Total Cells Counted 100
[2022-06-12 04:54] LABS: Anisocytosis 1+ (NORMAL); Platelet Estimate Adequate (Adequate); Schistocytes None Seen (NORMAL)
[2022-06-12 07:30] LABS: Glucose Point of Care 258 mg/dl (65-105)
[2022-06-12 08:37] LABS: Glucose Point of Care 103 mg/dl (65-105)
[2022-06-12 08:57] LABS: Alanine Aminotransferase 16 U/L (6-35); Albumin Level 2.9 g/dL (3.5-5.1); Alkaline Phosphatase 75 U/L (38-126); Anion Gap 9 mmol/L (8-16); Aspartate Amino Transferase 27 U/L (14-36); Bilirubin,Total 0.2 mg/dL (0.2-1.3); Blood Urea Nitrogen 28 mg/dL (7-17); Calcium 7.9 mg/dL (8.4-10.2); Carbon Dioxide 29 mmol/L (22-30); Chloride 101 mmol/L (98-107); Estimated CRCL calculation 25 ml/min; Estimated Glomerular Filt Rate 33; Glucose 143 mg/dL (65-110); Potassium 3.7 mmol/L (3.4-5.0); Sodium 139 mmol/L (137-145)
[2022-06-12] MEDS: hydrALAZINE 10 MG TABLET PO ×4 (09:50→20:18)
[2022-06-12] MEDS: ROSUVASTATIN 10 MG TABLET PO (09:50)
[2022-06-12] MEDS: GABAPENTIN 300 MG CAPSULE 600 MG PO (09:50)
[2022-06-12] MEDS: AZITHROMYCIN 250 MG TABLET PO (09:50)
[2022-06-12] MEDS: ENOXAPARIN 30 MG/0.3 ML SYRINGE SUB-Q (09:51)
[2022-06-12] MEDS: FUROSEMIDE INJ 40 MG/4 ML VIAL IV PUSH ×2 (09:51→20:18)
[2022-06-12] MEDS: amLODIPine BESYLATE 5 MG TABLET 10 MG PO (09:51)
[2022-06-12] MEDS: EMPAGLIFLOZIN 10 MG TABLET PO (09:51)
--- NOTE | 2022-06-12 11:33 | PM.IMPN ---
Progress Note: A&P Assessment and Plan (1) Acute respiratory failure with hypoxia and hypercapnia: Code(s): J96.01 - Acute respiratory failure with hypoxia; J96.02 - Acute respiratory failure with hypercapnia Status: Acute Assessment and Plan: Condition complicated by her untreated HENRY and severe pHTN. Has toelrated being off BiPAP. Continue nebulizer treatments. Wean O2 as toelrated. Add CPT. (2) Pneumonia: Code(s): J18.9 - Pneumonia, unspecified organism Status: Acute Assessment and Plan: Chest x-ray today showing persistent mid and lower lung airspace opacities. She has a minimal cough. blood cultures Gram-positive in clusters currently on vanc Rocephin and Zithromax final sensitivity related (3) MYRNA (acute kidney injury): Code(s): N17.9 - Acute kidney failure, unspecified Status: Acute Assessment and Plan: And gentle hydration. Avoid nephrotoxic drugs. Monitor antihypertensive drugs Avoid NSAIDs. Routine CMP monitor GFR. Monitor electrolytes potassium levels. Dose antibiotics depending on creatinine clearance Routine follow-up with PCP and 4th grade math teacher recommended (4) Congestive heart failure: Code(s): I50.9 - Heart failure, unspecified Status: Chronic Assessment and Plan: Has dependent edema noted past few day. BNP 6400 and CXR showing pleural effusions and CMG. Echo from March showing EF 65-70%, Grade III diastolic dysfunction, moderate TR and severe pulmonary HTN (113mmHg). Possibly mild CHF exacerbation but more likely related to severe pulm HTN. Lasix given in ED. Hold on repeating Lasix for now (5) Insulin dependent type 2 diabetes mellitus: Code(s): E11.9 - Type 2 diabetes mellitus without complications; Z79.4 - exterminator (current) use of insulin Status: Acute Assessment and Plan: A1c was 9.5. Yearly eye exam and foot exam. HBA1c ( goal <7.0%) , Renal functions, Liver panel every 3 months Monitor vitamin B12 levels Optimize JULIET-inhibitor and statin Routine glucose monitoring. Watch for Hypoglycemia. BMI goal < 25 Yearly eye exam and foot exam Exercise, Diet ( low salt- low carb) Weight loss Routinely check for urine microalbuminuria Routine follow-up with PCP and farm tractor operator (6) Chronic obstructive pulmonary disease: Code(s): J44.9 - Chronic obstructive pulmonary disease, unspecified Status: Acute Assessment and Plan: Patient advice to quit smoking. Bronchodilators. Keeping BMI less than 25. Repeat hospitilaztion risk evaluation per CAT. Evaluation for home O2 if saturations less than 88% on room air Follow-up with primary care and plating operator routine (7) Hypertension: Code(s): I10 - Essential (primary) hypertension Status: Acute Assessment and Plan: Patient's blood pressure was reviewed on 06/11 Blood pressure remains reasonably well controlled. Will continue current medications. (8) Obstructive sleep apnea: Code(s): G47.33 - Obstructive sleep apnea (adult) (pediatric) Status: Acute Assessment and Plan: Patient is noncompliant with sleep apnea treatment which is probably contributing to her respiratory failure. Blood gas in March does not show chronic retention. She does have severe pulmonary HTN. As above. (9) CKD (chronic kidney disease): Code(s): N18.9 - Chronic kidney disease, unspecified Status: Acute Assessment and Plan: As above Time Spent With Patient Time with patient: 25 - 35 minutes Subjective Date/time seen: 06/12/22 11:33 patient seen denied any complaints Review of Systems Review of Systems: All systems reviewed & are unremarkable except as noted in HPI and below Exam Const: General: comfortable HENMT: Ears: TM's normal bilaterally Eyes: General: appearance normal, both eyes and all related structures Neck: Neck: supple and no JVD Resp: Effor
--- NOTE | 2022-06-12 11:45 | PCOTNOTE ---
Patient unavailable to be seen at this time. Patient is having a bedside swallow performed, will try back this afternoon.
[2022-06-12 11:50] LABS: Glucose Point of Care 240 mg/dl (65-105)
--- NOTE | 2022-06-12 12:09 | PCSTNOTE ---
Please refer to the Bedside Swallow Evaluation in the EMR. Please note, silent aspiration cannot be ruled out at bedside.
[2022-06-12] MEDS: INSULIN ASPART (*BKC) 100 UNITS/ML SUB-Q ×2 (12:34→16:53)
[2022-06-12] MEDS: polyethylene glycoL 3350 17 GM POWD.PACK PO (12:41)
[2022-06-12 16:45] LABS: Glucose Point of Care 345 mg/dl (65-105)
[2022-06-12 20:05] LABS: Glucose Point of Care 192 mg/dl (65-105)
[2022-06-12] MEDS: GABAPENTIN 400 MG CAPSULE 1200 MG PO (20:17)
[2022-06-12] MEDS: LATANOPROST 0.005% OP SOLN 2.5 ML BTL 1 DROP EACH EYE (20:18)
[2022-06-12] MEDS: METOPROLOL TARTRATE 25 MG TABLET PO (21:04)
[2022-06-12] MEDS: INSULIN GLARGINE (*BKC) 100 UNITS/ML 13 UNITS SUB-Q (21:04)
[2022-06-13] VITALS (25 sets, daily range): BP systolic 133–145; BP diastolic 47–77; PULSE 61–81; RESP 18–24; TEMP 36.4–37.3; O2SAT 90–97
[2022-06-13] MEDS: IPRATROPIUM BR 0.02% INH SOLN 0.5 MG/2.5 ML VIAL INHALATION ×4 (02:15→21:23)
[2022-06-13] MEDS: ALBUTEROL SULFATE NEB 2.5 MG/3 ML INH INHALATION ×4 (02:15→21:23)
[2022-06-13 05:23] LABS: Estimated CRCL calculation 26 ml/min; Estimated Glomerular Filt Rate 36
[2022-06-13 07:50] LABS: Glucose Point of Care 94 mg/dl (65-105)
[2022-06-13] MEDS: polyethylene glycoL 3350 17 GM POWD.PACK PO (08:26)
[2022-06-13] MEDS: FUROSEMIDE INJ 40 MG/4 ML VIAL IV PUSH ×2 (08:26→20:38)
[2022-06-13] MEDS: ENOXAPARIN 30 MG/0.3 ML SYRINGE SUB-Q (08:26)
[2022-06-13] MEDS: GABAPENTIN 300 MG CAPSULE 600 MG PO (08:27)
[2022-06-13] MEDS: EMPAGLIFLOZIN 10 MG TABLET PO (08:27)
[2022-06-13] MEDS: hydrALAZINE 10 MG TABLET PO ×4 (08:27→20:37)
[2022-06-13] MEDS: METOPROLOL TARTRATE 25 MG TABLET PO (08:27)
[2022-06-13] MEDS: amLODIPine BESYLATE 5 MG TABLET 10 MG PO (08:28)
[2022-06-13] MEDS: AZITHROMYCIN 250 MG TABLET PO (08:29)
[2022-06-13] MEDS: ACETAMINOPHEN 325 MG TABLET 650 MG PO (10:08)
[2022-06-13] MEDS: ROSUVASTATIN 10 MG TABLET PO (10:09)
--- NOTE | 2022-06-13 11:07 | PM.CNCAR ---
Assessment and Plan Assessment and plan (1) Paroxysmal atrial tachycardia: Code(s): I47.1 - Supraventricular tachycardia Status: Acute Assessment and Plan: Patient with asymptomatic frequent brief runs of paroxysmal atrial tachycardia as well as frequent premature atrial contractions off beta-catarina therapy. Metoprolol started last night with significant reduction in burden. No documentation available to date to suggest atrial fibrillation although patient remains at increased risk given risk factors, age and frequency of atrial ectopy. Bradycardia previously documented prompting discontinuation of atenolol. Carvedilol was held at admission although patient has not been bradycardic. She has not had prolonged pauses or high-grade AV blocks to date. She has frequent aberrant conduction with intermittent right bundle-branch morphology. No evidence for ventricular tachycardia. No indication for systemic anticoagulation based on available arrhythmias today. Given concern for bradycardia the past will reduce metoprolol tartrate to 12.5 mg twice daily and observe control and overall heart rate tolerance. She remains at increased risk for arrhythmias given comorbidities, severe pulmonary hypertension, untreated obstructive sleep apnea. Monitor electrolytes, replete as needed. Check potassium, magnesium in a.m.. DVT prophylaxis. (2) Premature atrial contractions: Code(s): I49.1 - Atrial premature depolarization Status: Acute Assessment and Plan: As above, asymptomatic. Father is no pressing need for aggressive suppression premature atrial contractions given frequency of atrial arrhythmias low-dose beta-catarina has been initiated and tolerated this far. Continue telemetry for now but if remains stable may discontinue within 24 hours. (3) Obstructive sleep apnea: Code(s): G47.33 - Obstructive sleep apnea (adult) (pediatric) Status: Acute Assessment and Plan: Intolerant to CPAP unfortunately. (4) Pulmonary hypertension: Code(s): I27.20 - Pulmonary hypertension, unspecified Status: Acute Assessment and Plan: Severe with RVSP estimated at 113 mm Hg. Must avoid excessive hypotension due to the dangers associated with PA systolic pressures approaching systolic blood pressure of a per minute a degree of hypertension. Patient is at high risk with poor prognosis from this perspective alone. Etiology very likely multifactorial with clinical picture suggestive of pre and post capillary contribution although right heart catheterization would be required for further delineation. (5) CKD (chronic kidney disease): Code(s): N18.9 - Chronic kidney disease, unspecified Status: Acute Assessment and Plan: Improve since admission, stable. Diuretics being held. Patient does not appear to be decompensated heart failure present. Reported history of heart failure preserved ejection fraction, grade 3 diastolic dysfunction. (6) Chronic obstructive pulmonary disease: Code(s): J44.9 - Chronic obstructive pulmonary disease, unspecified Status: Acute Assessment and Plan: Management per primary service. She remains on O2 supplementation. (7) Pneumonia: Code(s): J18.9 - Pneumonia, unspecified organism Status: Acute Assessment and Plan: Management per hospitalist service. She is currently being treated for pneumonia as well with antibiotics. This may also contribute to arrhythmia risk with burden anticipated to lessen over time with clinical improvement. History of Present Illness History of Present Illness Consult date/time: Date of service: 06/13/22 11:07 Requesting physician: Bib Rodriguez MD Consult reason: Other (Frequent premature atrial contractions) Reason For Visit: Acute Respiratory Failure with Hypercapnea Narrative: Patient is an 82-year-old female with past medical history significant for severe pulmonary hyperte
[2022-06-13] MEDS: INSULIN ASPART (*BKC) 100 UNITS/ML SUB-Q ×2 (11:59→17:39)
[2022-06-13 12:02] LABS: Glucose Point of Care 285 mg/dl (65-105)
--- NOTE | 2022-06-13 13:00 | PM.IMPN ---
Progress Note: A&P Assessment and Plan (1) Acute respiratory failure with hypoxia and hypercapnia: Code(s): J96.01 - Acute respiratory failure with hypoxia; J96.02 - Acute respiratory failure with hypercapnia Status: Acute Assessment and Plan: Condition complicated by her untreated HENRY and severe pHTN. Has toelrated being off BiPAP. Continue nebulizer treatments. Wean O2 as toelrated. Add CPT. (2) Pneumonia: Code(s): J18.9 - Pneumonia, unspecified organism Status: Acute Assessment and Plan: Chest x-ray today showing persistent mid and lower lung airspace opacities. She has a minimal cough. blood cultures grew Staph epidermidis sensitive to vancomycin will discontinue Rocephin and Zithromax patient UA is negative continue the Pope in place (3) MYRNA (acute kidney injury): Code(s): N17.9 - Acute kidney failure, unspecified Status: Acute Assessment and Plan: And gentle hydration. Avoid nephrotoxic drugs. Monitor antihypertensive drugs Avoid NSAIDs. Routine CMP monitor GFR. Monitor electrolytes potassium levels. Dose antibiotics depending on creatinine clearance Routine follow-up with PCP and investment representative recommended (4) Congestive heart failure: Code(s): I50.9 - Heart failure, unspecified Status: Chronic Assessment and Plan: Has dependent edema noted past few day. BNP 6400 and CXR showing pleural effusions and CMG. Echo from March showing EF 65-70%, Grade III diastolic dysfunction, moderate TR and severe pulmonary HTN (113mmHg). Possibly mild CHF exacerbation but more likely related to severe pulm HTN. Lasix given in ED. Hold on repeating Lasix for now (5) Insulin dependent type 2 diabetes mellitus: Code(s): E11.9 - Type 2 diabetes mellitus without complications; Z79.4 - custodial (current) use of insulin Status: Acute Assessment and Plan: A1c was 9.5. Yearly eye exam and foot exam. HBA1c ( goal <7.0%) , Renal functions, Liver panel every 3 months Monitor vitamin B12 levels Optimize JULIET-inhibitor and statin Routine glucose monitoring. Watch for Hypoglycemia. BMI goal < 25 Yearly eye exam and foot exam Exercise, Diet ( low salt- low carb) Weight loss Routinely check for urine microalbuminuria Routine follow-up with PCP and knitting machine fixer head (6) Chronic obstructive pulmonary disease: Code(s): J44.9 - Chronic obstructive pulmonary disease, unspecified Status: Acute Assessment and Plan: Patient advice to quit smoking. Bronchodilators. Keeping BMI less than 25. Repeat hospitilaztion risk evaluation per CAT. Evaluation for home O2 if saturations less than 88% on room air Follow-up with primary care and head silverman routine (7) Hypertension: Code(s): I10 - Essential (primary) hypertension Status: Acute Assessment and Plan: Patient's blood pressure was reviewed on 06/11 Blood pressure remains reasonably well controlled. Will continue current medications. (8) Obstructive sleep apnea: Code(s): G47.33 - Obstructive sleep apnea (adult) (pediatric) Status: Acute Assessment and Plan: Patient is noncompliant with sleep apnea treatment which is probably contributing to her respiratory failure. Blood gas in March does not show chronic retention. She does have severe pulmonary HTN. As above. (9) CKD (chronic kidney disease): Code(s): N18.9 - Chronic kidney disease, unspecified Status: Acute Assessment and Plan: As above (10) Premature atrial contractions: Code(s): I49.1 - Atrial premature depolarization Status: Acute Assessment and Plan: cardiology consult reviewed. Starting patient on a beta-catarina. EKG finding less likely persistent V-tach and but more of atrial contraction Plan DVT prophylaxis. GI prophylaxis. All records reviewed Discussed plan of care with the nursing staff and puneet
[2022-06-13 16:34] LABS: Glucose Point of Care 253 mg/dl (65-105)
[2022-06-13] MEDS: INSULIN GLARGINE (*BKC) 100 UNITS/ML 13 UNITS SUB-Q (20:35)
[2022-06-13] MEDS: METOPROLOL TARTRATE 12.5 MG TABLET PO (20:37)
[2022-06-13] MEDS: GABAPENTIN 400 MG CAPSULE 1200 MG PO (20:38)
[2022-06-13] MEDS: LATANOPROST 0.005% OP SOLN 2.5 ML BTL 1 DROP EACH EYE (20:39)
[2022-06-13 20:50] LABS: Glucose Point of Care 301 mg/dl (65-105)
[2022-06-14] VITALS (21 sets, daily range): BP systolic 122–150; BP diastolic 50–94; PULSE 58–92; RESP 14–29; TEMP 36.4–38.8; O2SAT 88–100
[2022-06-14] MEDS: IPRATROPIUM BR 0.02% INH SOLN 0.5 MG/2.5 ML VIAL INHALATION ×4 (03:07→20:44)
[2022-06-14] MEDS: ALBUTEROL SULFATE NEB 2.5 MG/3 ML INH INHALATION ×4 (03:07→20:44)
[2022-06-14 08:27] LABS: Glucose Point of Care 95 mg/dl (65-105)
--- NOTE | 2022-06-14 08:50 | PM.PNCARD ---
Progress Note: A&P Assessment and Plan (1) Paroxysmal atrial tachycardia: Code(s): I47.1 - Supraventricular tachycardia Status: Acute Assessment and Plan: Patient with asymptomatic frequent brief runs of paroxysmal atrial tachycardia as well as frequent premature atrial contractions off beta-catarina therapy. Metoprolol started 06/12 with significant reduction in burden. No atrial fibrillation seen on telemetry thus far. No indication for systemic anticoagulation based on available arrhythmias today. Given concern for bradycardia the past will reduce metoprolol tartrate to 12.5 mg twice daily and observe control and overall heart rate tolerance. Tolerating well thus far. She remains at increased risk for arrhythmias given comorbidities, severe pulmonary hypertension, untreated obstructive sleep apnea. Monitor electrolytes, replete as needed. Check potassium, magnesium in a.m.. DVT prophylaxis. Cardiology will see her on an as needed basis. Please do not hesitate to call with questions. (2) Premature atrial contractions: Code(s): I49.1 - Atrial premature depolarization Status: Acute Assessment and Plan: As above, asymptomatic. Tolerating low dose beta catarina. Continue telemetry for now but if remains stable may discontinue within 24 hours. (3) Obstructive sleep apnea: Code(s): G47.33 - Obstructive sleep apnea (adult) (pediatric) Status: Acute Assessment and Plan: Intolerant to CPAP unfortunately. (4) Pulmonary hypertension: Code(s): I27.20 - Pulmonary hypertension, unspecified Status: Acute Assessment and Plan: Severe with RVSP estimated at 113 mm Hg. Must avoid excessive hypotension due to the dangers associated with PA systolic pressures approaching systolic blood pressure of a per minute a degree of hypertension. Patient is at high risk with poor prognosis from this perspective alone. Etiology very likely multifactorial with clinical picture suggestive of pre and post capillary contribution although right heart catheterization would be required for further delineation. (5) CKD (chronic kidney disease): Code(s): N18.9 - Chronic kidney disease, unspecified Status: Acute Assessment and Plan: Improve since admission, stable. Diuretics being held. Patient does not appear to be decompensated heart failure present. Reported history of heart failure preserved ejection fraction, grade 3 diastolic dysfunction. (6) Chronic obstructive pulmonary disease: Code(s): J44.9 - Chronic obstructive pulmonary disease, unspecified Status: Acute Assessment and Plan: Management per primary service. She remains on O2 supplementation. (7) Pneumonia: Code(s): J18.9 - Pneumonia, unspecified organism Status: Acute Assessment and Plan: Management per hospitalist service. She is currently being treated for pneumonia as well with antibiotics. This may also contribute to arrhythmia risk with burden anticipated to lessen over time with clinical improvement. Subjective Date/time seen: 06/14/22 08:50 Cardiology follow up for frequent PAC's, paroxysmal atrial tachycardia Feeling very tired today. Denies any chest pain, palpitations. Does have shortness of breath. No swelling. Remains in sinus rhythm with PAC's. Review of Systems Review of Systems: All systems reviewed & are unremarkable except as noted in HPI and below Constitutional: Constitutional: Reports as per HPI and Reports no additional constitutional complaints Eyes: Eyes: Reports as per HPI and Reports no additional eye complaints ENT: Reports system reviewed and no additional complaints, except as documented and Reports as per HPI Cardiovascular: Cardiovascular: Reports as per HPI and Reports no additional cardiovascular complaints Respiratory: Respiratory: Reports as per HPI and Reports no additional respiratory complaints Gastrointestinal: Maikol
[2022-06-14] MEDS: GABAPENTIN 300 MG CAPSULE 600 MG PO (11:32)
[2022-06-14] MEDS: EMPAGLIFLOZIN 10 MG TABLET PO (11:32)
[2022-06-14] MEDS: AZITHROMYCIN 250 MG TABLET PO (11:32)
[2022-06-14] MEDS: polyethylene glycoL 3350 17 GM POWD.PACK PO (11:32)
[2022-06-14] MEDS: FUROSEMIDE INJ 40 MG/4 ML VIAL IV PUSH ×2 (11:32→20:42)
[2022-06-14] MEDS: amLODIPine BESYLATE 5 MG TABLET 10 MG PO (11:32)
[2022-06-14] MEDS: ROSUVASTATIN 10 MG TABLET PO (11:32)
[2022-06-14] MEDS: ENOXAPARIN 30 MG/0.3 ML SYRINGE SUB-Q (11:33)
[2022-06-14] MEDS: hydrALAZINE 10 MG TABLET PO ×3 (11:33→20:41)
[2022-06-14] MEDS: INSULIN ASPART (*BKC) 100 UNITS/ML SUB-Q ×2 (11:33→17:49)
[2022-06-14] MEDS: METOPROLOL TARTRATE 12.5 MG TABLET PO ×2 (11:33→20:40)
--- NOTE | 2022-06-14 12:23 | P.CDI_ITS ---
CDI Query Clarified Diagnosis Clarified Diagnosis: Patient with noted CHF on problem list. BNP elevated upon presentation. Patient receiving IV Lasix. Dependent edema noted. Please specify type and acuity of heart failure if known. Risk Factors: Clinical Indicators: Treatment: * Acute * Chronic * Acute on Chronic * Unknown * Systolic * Diastolic * Combined Systolic and Diastolic * Unknown <Sharon Hoskins RN - Last Filed: 06/14/22 12:27> Provider Comments acute on chronic combined syst on morris <Bib Rodriguez MD - Last Filed: 06/15/22 07:20>
--- NOTE | 2022-06-14 13:08 | PM.IMPN ---
Progress Note: A&P Assessment and Plan (1) Acute respiratory failure with hypoxia and hypercapnia: Code(s): J96.01 - Acute respiratory failure with hypoxia; J96.02 - Acute respiratory failure with hypercapnia Status: Acute Assessment and Plan: Condition complicated by her untreated HENRY and severe pHTN. Has toelrated being off BiPAP. Continue nebulizer treatments. Wean O2 as toelrated. Add CPT. (2) Pneumonia: Code(s): J18.9 - Pneumonia, unspecified organism Status: Acute Assessment and Plan: Chest x-ray today showing persistent mid and lower lung airspace opacities. She has a minimal cough. blood cultures grew Staph epidermidis sensitive to vancomycin will discontinue Rocephin and Zithromax patient UA is negative continue the Pope in place will redraw blood cultures today because initial blood culture could be contamination (3) MYRNA (acute kidney injury): Code(s): N17.9 - Acute kidney failure, unspecified Status: Acute Assessment and Plan: grandparent trending downwards 1.4 And gentle hydration. Avoid nephrotoxic drugs. (4) Congestive heart failure: Code(s): I50.9 - Heart failure, unspecified Status: Chronic Assessment and Plan: Has dependent edema noted past few day. BNP 6400 and CXR showing pleural effusions and CMG. Echo from March showing EF 65-70%, Grade III diastolic dysfunction, moderate TR and severe pulmonary HTN (113mmHg). Possibly mild CHF exacerbation but more likely related to severe pulm HTN. Lasix given in ED. Hold on repeating Lasix for now (5) Insulin dependent type 2 diabetes mellitus: Code(s): E11.9 - Type 2 diabetes mellitus without complications; Z79.4 - termite control representative (current) use of insulin Status: Acute Assessment and Plan: A1c was 9.5. Yearly eye exam and foot exam. HBA1c 9.5 ( goal <7.0%) , Monitor vitamin B12 levels Routine glucose monitoring. Watch for Hypoglycemia. BMI goal < 25 should see turbine engine assembler after discharge (6) Obstructive sleep apnea: Code(s): G47.33 - Obstructive sleep apnea (adult) (pediatric) Status: Acute Assessment and Plan: Patient is noncompliant with sleep apnea treatment which is probably contributing to her respiratory failure. Blood gas in March does not show chronic retention. She does have severe pulmonary HTN. As above. (7) Premature atrial contractions: Code(s): I49.1 - Atrial premature depolarization Status: Acute Assessment and Plan: cardiology consult reviewed. Starting patient on a beta-catarina. Plan DVT prophylaxis. GI prophylaxis. All records reviewed Discussed plan of care with the nursing staff and with the patient in detail. Answered all questions and concerns from the patient. All labs have been reviewed. Code status updated dictation may have been done utilizing a voice recognition system. Attempts have been made to correct errors. However, there may be uncorrected grammatical, spelling, and recognition errors present. Subjective Date/time seen: 06/14/22 13:08 Interval history: 82yo female with untreated HENRY, HTN, DM and COPD here for shortness of breath and found to have acute respiratory failure. patient also had a run of atrial tachycardia cardiology was consulted Review of Systems Review of Systems: All systems reviewed & are unremarkable except as noted in HPI and below Exam Narrative: AF 98.5 153/80 87 18 99% 5L Gen - NARD sittin gup in bed Chest - decreased BS bibasilar with bronchial BS. CV - irregularly irregular with 2/6 systolic murmur left sternal border. Tele showing sinus arrhythmias with brief runs of NSVT Abd - soft, obese, NT, +BS Ext - no pedal edema. Neuro - alert and appropriate. Psych - normal mood and affect. Skin - warm and dry. Const: General: comfortable HENMT: Ears: TM's normal bilaterally Eyes: General: appearance
[2022-06-14 17:05] LABS: Alveolar/Arterial O2 Gradient 262.1 mmHg; Base Excess ABG 8.7 mEq/l (+/-2.0); Fractional Inspired Oxygen 52 %; Oxygen Content ABG 17.2 %vol (16.0-22.0); PCO2 ABG 54.6 mmHg (35.0-45.0); PO2 FiO2 Ratio Arterial Blood 0.91 %; Total Hemoglobin 14.7 g/dL (12.0-18.0); pH ABG 7.425 (7.350-7.450)
[2022-06-14 17:11] LABS: Modified Allen's Test Pass; Oxygen Saturation ABG 83.5 % (95.0-100.0); Oxyhemoglobin 83.3 % THb (90.0-100.0); PO2 ABG 47.5 mmHg (80.0-100.0); Site Drawn RIGHT RADIAL
[2022-06-14 17:12] LABS: Device NASAL CANNULA
[2022-06-14 17:33] LABS: Glucose Point of Care 271 mg/dl (65-105)
[2022-06-14 17:33] LABS: Alveolar/Arterial O2 Gradient 259.4 mmHg; Base Excess ABG 10.3 mEq/l (+/-2.0); Fractional Inspired Oxygen 52 %; HCO3 ABG 36.7 mEq/l (22.0-26.0); Oxygen Content ABG 13.6 %vol (16.0-22.0); PCO2 ABG 58.6 mmHg (35.0-45.0); PO2 FiO2 Ratio Arterial Blood 0.88 %; Total Hemoglobin 11.9 g/dL (12.0-18.0); pH ABG 7.415 (7.350-7.450)
[2022-06-14 17:41] LABS: Oxygen Saturation ABG 81.1 % (95.0-100.0); Oxyhemoglobin 81.4 % THb (90.0-100.0); PO2 ABG 45.7 mmHg (80.0-100.0); Site Drawn LEFT RADIAL
[2022-06-14 17:42] LABS: Device NASAL CANNULA; Modified Allen's Test Pass
[2022-06-14] MEDS: ACETAMINOPHEN 325 MG TABLET 650 MG PO (17:49)
[2022-06-14 17:53] LABS: Glucose Point of Care 304 mg/dl (65-105)
[2022-06-14 18:41] LABS: Appearance Urine Clear (Clear); Bilirubin Urine Negative (Negative); Blood Urine Trace-lysed (Negative); Color Urine Yellow (Yellow); Glucose Urine UA 3+ mg/dL (Negative); Ketones Urine Negative (Negative); Leukocyte Esterase Ur Trace LEU/UL (Negative); Nitrate Urine Negative (Negative); Protein Urine 2+ mg/dL (Negative); Specific Grav Ur <= 1.005 (1.001-1.035); Urobilinogen Urine 0.2 mg/dL (<2.0)
[2022-06-14 18:46] LABS: Bacteria Urine Trace /hpf; Mucus Urine Few /lpf; Squamous Epithelial Cell Urine Many /hpf (Few); WBC Clumps Urine Present /HPF; WBC Urine >75 /hpf
[2022-06-14 18:59] LABS: Add Urine Microscopic? YES
[2022-06-14 20:20] LABS: Vancomycin Trough 14.9 ug/mL (10.0-20.0)
[2022-06-14] MEDS: GABAPENTIN 400 MG CAPSULE 1200 MG PO (20:39)
[2022-06-14] MEDS: LATANOPROST 0.005% OP SOLN 2.5 ML BTL 1 DROP EACH EYE (20:42)
[2022-06-14] MEDS: INSULIN GLARGINE (*BKC) 100 UNITS/ML 13 UNITS SUB-Q (20:54)
[2022-06-14 20:59] LABS: Glucose Point of Care 185 mg/dl (65-105)
[2022-06-15] VITALS (24 sets, daily range): BP systolic 119–152; BP diastolic 44–87; PULSE 54–99; RESP 14–26; TEMP 35.9–37.2; O2SAT 89–99
[2022-06-15] MEDS: ALBUTEROL SULFATE NEB 2.5 MG/3 ML INH INHALATION ×4 (02:24→20:46)
[2022-06-15] MEDS: IPRATROPIUM BR 0.02% INH SOLN 0.5 MG/2.5 ML VIAL INHALATION ×4 (02:24→20:47)
[2022-06-15 04:55] LABS: Estimated CRCL calculation 29 ml/min; Estimated Glomerular Filt Rate 39
[2022-06-15 05:58] LABS: Base Excess ABG 9.2 mEq/l (+/-2.0); Carboxyhemoglobin 0.3 % THb (0-2.0); Fractional Inspired Oxygen 75 %; HCO3 ABG 36.5 mEq/l (22.0-26.0); Oxygen Content ABG 16.7 %vol (16.0-22.0); Oxygen Saturation ABG 92.8 % (95.0-100.0); Oxyhemoglobin 92.7 % THb (90.0-100.0); PO2 ABG 68.2 mmHg (80.0-100.0); PO2 FiO2 Ratio Arterial Blood 0.91 %; Total Hemoglobin 12.8 g/dL (12.0-18.0); pH ABG 7.383 (7.350-7.450)
[2022-06-15 06:03] LABS: Device NON-INVASIVE VENT; Modified Allen's Test Pass; PCO2 ABG 62.6 mmHg (35.0-45.0); Site Drawn LEFT RADIAL
[2022-06-15 08:09] LABS: Glucose Point of Care 144 mg/dl (65-105)
[2022-06-15 08:56] LABS: Alanine Aminotransferase 23 U/L (6-35); Alkaline Phosphatase 84 U/L (38-126); Anion Gap 4 mmol/L (8-16); Aspartate Amino Transferase 51 U/L (14-36); Bilirubin,Total 0.3 mg/dL (0.2-1.3); Blood Urea Nitrogen 33 mg/dL (7-17); Calcium 8.4 mg/dL (8.4-10.2); Carbon Dioxide 35 mmol/L (22-30); Chloride 98 mmol/L (98-107); Estimated CRCL calculation 25 ml/min; Estimated Glomerular Filt Rate 36; Glucose 146 mg/dL (65-110); Potassium 3.8 mmol/L (3.4-5.0); Sodium 137 mmol/L (137-145)
[2022-06-15 09:13] LABS: Hematocrit 36.3 % (37.0-47.0); Hemoglobin 10.8 g/dL (12.0-15.0); Mean Corpuscular HGB Conc 29.8 g/dl (32-36); Mean Corpuscular Hemoglobin 28.6 pg (26-34); Mean Platelet Volume 10.2 fl (7.4-10.4); Platelet Count Result 309 k/mm3 (150-375); Red Blood Count 3.78 M/mm3 (4.2-5.4); Red Cell Distribution Width 14.6 % (11.5-14.5); White Blood Count 11.3 K/mm3 (4.5-10.0)
--- NOTE | 2022-06-15 09:47 | PM.IMPN ---
Progress Note: A&P Assessment and Plan (1) Acute respiratory failure with hypoxia and hypercapnia: Code(s): J96.01 - Acute respiratory failure with hypoxia; J96.02 - Acute respiratory failure with hypercapnia Status: Acute Assessment and Plan: Condition complicated by her untreated HENRY and severe pHTN. Has toelrated being BiPAP. Continue nebulizer treatments. will get Pulmonary consult. ABG reviewed and added Add CPT. (2) Pneumonia: Code(s): J18.9 - Pneumonia, unspecified organism Status: Acute Assessment and Plan: Chest x-ray today showing persistent mid and lower lung airspace opacities. She has a minimal cough. blood cultures grew Staph epidermidis sensitive to vancomycin will discontinue Rocephin and Zithromax patient UA is negative continue the Pope in place will redraw blood cultures today because initial blood culture could be contamination (3) MYRNA (acute kidney injury): Code(s): N17.9 - Acute kidney failure, unspecified Status: Acute Assessment and Plan: grandparent trending downwards 1.4 And gentle hydration. Avoid nephrotoxic drugs. (4) Congestive heart failure: Code(s): I50.9 - Heart failure, unspecified Status: Chronic Assessment and Plan: Has dependent edema noted past few day. BNP 6400 and CXR showing pleural effusions and CMG. Echo from March showing EF 65-70%, Grade III diastolic dysfunction, moderate TR and severe pulmonary HTN (113mmHg). Possibly mild CHF exacerbation but more likely related to severe pulm HTN. Lasix given in ED. Hold on repeating Lasix for now (5) Insulin dependent type 2 diabetes mellitus: Code(s): E11.9 - Type 2 diabetes mellitus without complications; Z79.4 - truck terminal manager (current) use of insulin Status: Acute Assessment and Plan: A1c was 9.5. Yearly eye exam and foot exam. HBA1c 9.5 ( goal <7.0%) , Routine glucose monitoring. Watch for Hypoglycemia. BMI goal < 25 (6) Obstructive sleep apnea: Code(s): G47.33 - Obstructive sleep apnea (adult) (pediatric) Status: Acute Assessment and Plan: Patient is noncompliant with sleep apnea treatment which is probably contributing to her respiratory failure. Blood gas in March does not show chronic retention. She does have severe pulmonary HTN. As above. (7) Premature atrial contractions: Code(s): I49.1 - Atrial premature depolarization Status: Acute Assessment and Plan: cardiology consult reviewed. will stop beta-catarina as patient's heart rate has been running in the low 50s Subjective Date/time seen: 06/15/22 09:47 Interval history: still very short of breath started on BiPAP overnight Exam Narrative: GENERAL: Well appearing, well-nourished, non-toxic, in no acute distress. HEAD: Normocephalic, atraumatic. NECK: Supple. No adenopathy, no masses. RESPIRATORY: Airway patent, respirations nonlabored. Clear to auscultation bilaterally, no rales, rhonchi, wheezing. CARDIOVASCULAR: Regular rate and rhythm without murmurs, rubs, or gallops. Peripheral pulses 2+ and equal bilaterally. ABDOMINAL: Soft, nontender, nondistended, no hepatosplenomegaly. Normoactive BS. MUSCULOSKELETAL: no Epigastric and no hypochondrial tenderness SKIN: Warm, dry, normal color. No rashes. NEURO: A&O X3. Moves all extremities PSYCHIATRIC: Appropriate mood and affect. Normal interaction. Objective Data Vital Signs Vital Signs: Vital Signs - 24 hr 06/14/22 12:00 06/14/22 14:08 06/14/22 14:17 Temperature 36.8 C Pulse Rate 89 78 73 Respiratory Rate 24 H 20 20 Blood Pressure 150/52 H Pulse Oximetry 92 Oxygen Delivery Fraction of Inspired Oxygen 06/14/22 16:00 06/14/22 12:00 06/14/22 16:00 Temperature 38.8 C H Pulse Rate 75 79 78 Respiratory Rate 24 H Blood Pressure 135/94 H Pulse Oximetry 88 L Oxygen Delivery Fraction of Inspired Oxygen
[2022-06-15] MEDS: amLODIPine BESYLATE 5 MG TABLET 10 MG PO (10:17)
[2022-06-15] MEDS: ROSUVASTATIN 10 MG TABLET PO (10:17)
[2022-06-15] MEDS: GABAPENTIN 300 MG CAPSULE 600 MG PO (10:17)
[2022-06-15] MEDS: ENOXAPARIN 30 MG/0.3 ML SYRINGE SUB-Q (10:18)
[2022-06-15] MEDS: EMPAGLIFLOZIN 10 MG TABLET PO (10:18)
[2022-06-15] MEDS: FUROSEMIDE INJ 40 MG/4 ML VIAL IV PUSH (10:18)
[2022-06-15] MEDS: hydrALAZINE 10 MG TABLET PO ×4 (10:18→21:21)
[2022-06-15] MEDS: polyethylene glycoL 3350 17 GM POWD.PACK PO (10:19)
--- NOTE | 2022-06-15 11:15 | PM.CNPUL ---
Assessment and Plan Assessment and plan (1) Acute respiratory failure with hypoxia and hypercapnia: Code(s): J96.01 - Acute respiratory failure with hypoxia; J96.02 - Acute respiratory failure with hypercapnia Status: Acute Assessment and Plan: this 82-year-old female presented with shortness of breath, hypercapnic hypoxemic respiratory failure, with evidence of bilateral pulmonary infiltrates and small pleural effusions on chest imaging studies which in conjunction with the patient's long history of congestive heart failure suggest respiratory failure related to pulmonary edema / congestive heart failure. As stated, patient has chronically elevated pulmonary artery systolic pressure, left ventricular diastolic dysfunction grade 3, moderately enlarged left atrium on last echocardiogram. Patient seems to be responding to current regimen with furosemide 40 mg twice daily and other medications for congestive heart failure. Hypercapnic respiratory failure also responded to BiPAP support 14/6. Patient has been on vancomycin presumably for positive blood cultures growing Staph epidermidis/haemolyticus. The patient's presentation in conjunction with the diagnostic study findings does not suggest Staph pneumonia. I would discontinue vancomycin. Plan: continue with BiPAP support at 12/6 and supplemental oxygen at night. Patient will be on nasal cannula during the day. Will repeat chest x-ray and arterial blood gases to document stability of gas exchange and resolution of pulmonary edema. (2) Congestive heart failure: Code(s): I50.9 - Heart failure, unspecified Status: Chronic (3) Pulmonary hypertension: Code(s): I27.20 - Pulmonary hypertension, unspecified Status: Acute Assessment and Plan: The patient has severe pulmonary hypertension as calculated by recent echocardiogram. The patient's pulmonary hypertension is probably related to her left ventricular diastolic dysfunction and untreated sleep disorder breathing. This degree of pulmonary hypertension is [id number] to her cardiac hemodynamic status. 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 I would suggest follow-up with lung perfusion scan to exclude chronic thromboembolic pulmonary hypertension. This can be done after improvement of her pulmonary edema. Patient carries history of COPD but pulmonary function testing approximately 10 years ago showed no evidence of obstructive airway disease. She will need repeat pulmonary function testing on an outpatient basis. 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 The patient is well known to pulmonologists at [facility] due to multiple hospitalizations in the recent past. Patient has history of congestive heart failure, left ventricular diastolic dysfunction grade 3, severe pulmonary hypertension, history of sleep apnea on no treatment. Patient has been hospitalized on multiple occasions over the last few years for respiratory distress. Chest imaging studies over the years have shown cardiomegaly, lung congestion related to pulmonary edema and bilateral pleural effusions. The patient was in her usual state of health until approximately couple days prior to this admission when she started having shortness of breath. She had no fever chills hemopty
[2022-06-15 12:08] LABS: Glucose Point of Care 199 mg/dl (65-105)
[2022-06-15 14:33] LABS: Lactic Acid Reflex 1.2 mmol/L (0.7-2.0)
[2022-06-15 14:51] LABS: Procalcitonin 0.2 ng/mL
[2022-06-15 16:24] LABS: Glucose Point of Care 270 mg/dl (65-105)
[2022-06-15] MEDS: BUMETANIDE INJ 1 MG/4 ML VIAL IV PUSH (17:24)
[2022-06-15] MEDS: INSULIN ASPART (*BKC) 100 UNITS/ML SUB-Q (17:24)
[2022-06-15 20:10] LABS: Glucose Point of Care 290 mg/dl (65-105)
[2022-06-15] MEDS: GABAPENTIN 400 MG CAPSULE 1200 MG PO (21:20)
[2022-06-15] MEDS: LATANOPROST 0.005% OP SOLN 2.5 ML BTL 1 DROP EACH EYE (21:21)
[2022-06-15] MEDS: INSULIN GLARGINE (*BKC) 100 UNITS/ML 13 UNITS SUB-Q (21:21)
[2022-06-16] VITALS (24 sets, daily range): BP systolic 123–149; BP diastolic 51–76; PULSE 68–100; RESP 16–30; TEMP 36.6–37.1; O2SAT 88–99
[2022-06-16] MEDS: ALBUTEROL SULFATE NEB 2.5 MG/3 ML INH INHALATION ×2 (03:20→08:39)
[2022-06-16] MEDS: IPRATROPIUM BR 0.02% INH SOLN 0.5 MG/2.5 ML VIAL INHALATION ×4 (03:20→19:59)
[2022-06-16 07:58] LABS: Glucose Point of Care 117 mg/dl (65-105)
[2022-06-16] MEDS: ENOXAPARIN 30 MG/0.3 ML SYRINGE SUB-Q (08:51)
[2022-06-16] MEDS: BUMETANIDE INJ 1 MG/4 ML VIAL IV PUSH ×2 (08:51→17:07)
[2022-06-16] MEDS: FUROSEMIDE INJ 40 MG/4 ML VIAL IV PUSH (08:52)
[2022-06-16 09:09] LABS: Alveolar/Arterial O2 Gradient 542.8 mmHg; Base Excess ABG 7.1 mEq/l (+/-2.0); Fractional Inspired Oxygen 90 %; HCO3 ABG 32.9 mEq/l (22.0-26.0); Oxygen Content ABG 14.5 %vol (16.0-22.0); PCO2 ABG 51.7 mmHg (35.0-45.0); PO2 FiO2 Ratio Arterial Blood 0.51 %; Total Hemoglobin 12.6 g/dL (12.0-18.0); pH ABG 7.421 (7.350-7.450)
[2022-06-16 09:11] LABS: PO2 ABG 45.9 mmHg (80.0-100.0)
[2022-06-16 09:12] LABS: Modified Allen's Test Pass; Oxyhemoglobin 81.8 % THb (90.0-100.0); Site Drawn RIGHT RADIAL
[2022-06-16 09:13] LABS: Device HIGH FLOW NASAL CANN
[2022-06-16] MEDS: amLODIPine BESYLATE 5 MG TABLET 10 MG PO (09:34)
[2022-06-16] MEDS: GABAPENTIN 300 MG CAPSULE 600 MG PO (09:34)
[2022-06-16] MEDS: hydrALAZINE 10 MG TABLET PO ×4 (09:34→20:39)
[2022-06-16] MEDS: EMPAGLIFLOZIN 10 MG TABLET PO (09:34)
[2022-06-16] MEDS: ROSUVASTATIN 10 MG TABLET PO (09:34)
--- NOTE | 2022-06-16 10:28 | PM.IMPN ---
Progress Note: A&P Assessment and Plan (1) Acute respiratory failure with hypoxia and hypercapnia: Code(s): J96.01 - Acute respiratory failure with hypoxia; J96.02 - Acute respiratory failure with hypercapnia Status: Acute Assessment and Plan: Condition complicated by her untreated HENRY and severe pHTN. placed on BiPAP. Continue nebulizer treatments. Pulmonary consulted ABG shows hypoxia. hypercapnia improving Add CPT. chest x-ray shows bilateral effusions with atelectasis start Lasix (2) Pneumonia: Code(s): J18.9 - Pneumonia, unspecified organism Status: Acute Assessment and Plan: Chest x-ray today showing persistent mid and lower lung airspace opacities. She has a minimal cough. patient finished course of antibiotics (3) MYRNA (acute kidney injury): Code(s): N17.9 - Acute kidney failure, unspecified Status: Acute Assessment and Plan: trending downwards 1.4 no IV fluids given bilateral pleural effusion suggestive of fluid overload Avoid nephrotoxic drugs. (4) Congestive heart failure: Code(s): I50.9 - Heart failure, unspecified Status: Chronic Assessment and Plan: Has dependent edema noted past few day. BNP 6400 and CXR showing pleural effusions and CMG. Echo from March showing EF 65-70%, Grade III diastolic dysfunction, moderate TR and severe pulmonary HTN (113mmHg). Possibly mild CHF exacerbation but more likely related to severe pulm HTN. - will give 1 dose of 40 mg IV Lasix and start on 40 mg Lasix p.o. b.i.d. (5) Insulin dependent type 2 diabetes mellitus: Code(s): E11.9 - Type 2 diabetes mellitus without complications; Z79.4 - intermediate designer (current) use of insulin Status: Acute Assessment and Plan: A1c was 9.5. Yearly eye exam and foot exam. HBA1c 9.5 ( goal <7.0%) , Routine glucose monitoring. Watch for Hypoglycemia. BMI goal < 25 (6) Obstructive sleep apnea: Code(s): G47.33 - Obstructive sleep apnea (adult) (pediatric) Status: Acute Assessment and Plan: Patient is noncompliant with sleep apnea treatment which is probably contributing to her respiratory failure. Blood gas in March does not show chronic retention. She does have severe pulmonary HTN. As above. (7) Premature atrial contractions: Code(s): I49.1 - Atrial premature depolarization Status: Acute Assessment and Plan: cardiology consult reviewed. will stop beta-catarina as patient's heart rate has been running in the low 50s Subjective Date/time seen: 06/16/22 10:28 patient became more hypoxic this morning. Was placed on BiPAP. Denies any chest pain Review of Systems Review of Systems: All systems reviewed & are unremarkable except as noted in HPI and below Exam Narrative: GENERAL APPEARANCE: on BiPAP. SKIN: Inspection of the skin reveals no rashes, ulcerations or petechiae. HEENT: Sclerae anicteric and conjunctivae pink and moist. Extraocular movements were intact and pupils were equal, round. dry oral mucosa; hard and soft palate, tongue and posterior pharynx were normal. NECK: Supple. There was no thyroid enlargement, and no tenderness, or masses were felt. JVD present LUNGS: Auscultation of the lungs revealed diffuse rales posteriorly, no wheezing CARDIAC: There was a irregular rate and rhythm 3/6 systolic ejection murmur at apex ABDOMEN: Soft and nontender with normal bowel sounds. There was no organomegaly. LYMPH NODES: No lymphadenopathy was appreciated in the neck. EXTREMITIES: No cyanosis, clubbing or edema. NEUROLOGIC: Alert and oriented x 3. Normal affect. Objective Data Vital Signs Vital Signs: Vital Signs - 24 hr 06/15/22 12:25 06/15/22 12:00 06/15/22 15:05 Temperature 98.2 F Pulse Rate 73 83 Respiratory Rate 20 20 Blood Pressure 121/87 Pulse Oximetry 93 91 Oxygen Delivery High Flow Nasal Cannula Oxygen Flow Rate 10 Fraction of I
--- NOTE | 2022-06-16 11:25 | PM.PNPUL ---
Progress Note: A&P Assessment and Plan (1) Acute respiratory failure with hypoxia and hypercapnia: Code(s): J96.01 - Acute respiratory failure with hypoxia; J96.02 - Acute respiratory failure with hypercapnia Status: Acute Assessment and Plan: ?this 82-year-old female presented with shortness of breath, hypercapnic hypoxemic respiratory failure, with evidence of bilateral pulmonary infiltrates and small pleural effusions on chest imaging studies which in conjunction with the patient's long history of congestive heart failure suggest respiratory failure related to pulmonary edema / congestive heart failure.? As stated, patient has chronically elevated pulmonary artery systolic pressure, left ventricular diastolic dysfunction grade 3, moderately enlarged left atrium on last echocardiogram.? Patient has been on treatment for congestive heart failure. Over the last 24 hours her respiratory status has worsened despite treatment with diuretics, BiPAP support and supplemental oxygen 17/02. Today's chest CT showed moderately large symmetrical effusions bilaterally and lung congestion likely related to congestive heart failure. Patient has no signs of respiratory infection and has been off antibiotics. Given the large pleural effusions with associated atelectasis, gas exchange will probably worsen and patient may need intubation and mechanical ventilation. BiPAP was increased to 14/8. Patient will be evaluated for transfer to the intensive care unit for better monitoring. She will need right thoracentesis. Case was discussed with the patient's hospitalist and Dr. Matson. ? (2) Congestive heart failure: Code(s): I50.9 - Heart failure, unspecified Status: Chronic (3) Pulmonary hypertension: Code(s): I27.20 - Pulmonary hypertension, unspecified Status: Acute Assessment and Plan: The patient has severe pulmonary hypertension as calculated by recent echocardiogram.? The patient's pulmonary hypertension is probably related to left ventricular diastolic dysfunction and untreated sleep disordered breathing. This degree of pulmonary hypertension is [id number] to her cardiac hemodynamic status.? 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 I would suggest? follow-up with? lung perfusion scan to exclude chronic thromboembolic pulmonary hypertension.? This can be done after improvement of her pulmonary edema.? Patient carries history of COPD but pulmonary function testing approximately 10 years ago showed no evidence of obstructive airway disease.? She will need repeat pulmonary function testing on an outpatient basis. 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 She was found to have hypoxemia and was placed back on BiPAP support and high FiO2. She has undergone stat chest CT that showed large pleural effusions bilaterally and pulmonary congestion. Currently she is on BiPAP 14/8. She has no fever chills hemoptysis or lower extremity edema. Vancomycin has been discontinued. Review of Systems Review of Systems: All system review is negative except as noted in HPI and below Exam Narrative: GENERAL APPEARANCE: Well developed, well nourished, alert and cooperative, who appears to be in mild- moderate respiratory distress while sitting up in bed receiving BIPAP SKIN: Inspection of the skin reveals no rashes, ulcerations or petechiae. HEENT: Sclerae anicteric and conjunctivae pink an
[2022-06-16 12:08] LABS: Glucose Point of Care 205 mg/dl (65-105)
--- NOTE | 2022-06-16 12:14 | WPDCNINT ---
Assessment and Plan Assessment and plan (1) Acute respiratory failure with hypoxia and hypercapnia: Code(s): J96.01 - Acute respiratory failure with hypoxia; J96.02 - Acute respiratory failure with hypercapnia Status: Acute Assessment and Plan: 06/16/2022: Patient was evaluated the intermediate Unit for worsening respiratory status, increasing oxygen requirements on BiPAP. Patient was transferred to the ICU for further management -worsening respiratory status likely related to bilateral pleural effusions, pneumonia, pulmonary edema, severe pulmonary hypertension -patient currently is on BiPAP, settings were changed to 18/8, rate of 12 and 70% FiO2 O2 sats, will obtain ABG -06/16: Chest x-ray showed worsening infiltrates. -06/16: CT chest showed diffuse bilateral pulmonary edema and/or pneumonia, moderate-size bilateral posterior layering pleural effusion with complete collapse of the right lower lobe and nearly complete collapse of the left lower lobe, cardiomegaly could likely reactive mediastinal lymphadenopathy, multinodular goiter. -patient required thoracentesis by intervention Radiology which has been ordered -started patient on bronchodilators -started cefepime and vancomycin (06/16) -will continue BiPAP for now, have discussed with patient and FiO2 respiratory status worsens she may end up needing intubation and mechanical ventilation to which she is agreeable (2) Chronic obstructive pulmonary disease: Code(s): J44.9 - Chronic obstructive pulmonary disease, unspecified Status: Acute Assessment and Plan: Continue BiPAP, antibiotics. -patient is not wheezing, will hold off steroids (3) Congestive heart failure: Code(s): I50.9 - Heart failure, unspecified Status: Chronic Assessment and Plan: Congestive heart failure likely related to severe pulmonary hypertension, tricuspid valve regurg, essential hypertension, Echocardiogram from 04/09/2022 shows EF of 65-75%, grade 3 diastolic dysfunction, left atrial chamber moderately enlarged, right atrial chamber moderately enlarged, moderate aortic valve sclerosis, mild aortic valve stenosis, mitral valve has moderately thickened leaflets and severely calcified annulus, mild mitral valve regurg, moderate tricuspid valve regurg, severe pulmonary hypertension with RVSP of 113 mmHg -appreciate cardiology following the patient -continue diuresis, blood pressure control -in March when she was hospitalized patient was on lisinopril and atenolol, was found to be hyperkalemic, and bradycardic along with syncopal episode, lisinopril and atenolol were discontinued and patient was started on amlodipine and hydralazine for blood pressure control -will discuss with Cardiology (4) CKD (chronic kidney disease): Code(s): N18.9 - Chronic kidney disease, unspecified Status: Acute Assessment and Plan: Patient has a history of chronic kidney disease with baseline creatinine of 1.0-1.3, on admission patient's creatinine was 1.6 likely related to hypoxia. Not on any JULIET/ ARB at home -patient being aggressively diuresed, making good urine -creatinine down to 1.2 this morning 06/16 -continue monitor renal function, electrolytes and urine output (5) Insulin dependent type 2 diabetes mellitus: Code(s): E11.9 - Type 2 diabetes mellitus without complications; Z79.4 - terminal make up operator (current) use of insulin Status: Acute Assessment and Plan: Patient with history of insulin dependent diabetes, - hemoglobin A1c this admission is 9.5 -continue Lantus and home hyperglycemic medication -continue Accu-Cheks and sliding scale insulin (6) HTN (hypertension), malignant: Code(s): I10 - Essential (primary) hypertension Status: Chronic Assessment and Plan: Essential hypertension, patient on hydralazine and amlodipine -also on Bumex IV Continue to monitor blood pressures closely (7) Hyperlipidemia: Code(s): E78.5 -
[2022-06-16] MEDS: INSULIN ASPART (*BKC) 100 UNITS/ML SUB-Q (12:16)
[2022-06-16 12:18] LABS: Basophils Absolute Auto 0.1 K/mm3 (0.0-0.1); Basophils Percent Auto 0.6 % (0.2-1.2); Eosinophils Absolute Auto 0.3 K/mm3 (0-0.3); Eosinophils Percent Auto 2.3 % (0-4.4); Hematocrit 37.3 % (37.0-47.0); Hemoglobin 11.5 g/dL (12.0-15.0); Immature Granulocyte Absolute 0.14 K/mm3 (0.00-0.031); Immature Granulocyte Percent A 1.1 % (0-0.5); Lymphocytes Absolute Auto 0.91 K/mm3 (0.9-3.2); Lymphocytes Percent Auto 7.2 % (18.3-44.2); Mean Corpuscular HGB Conc 30.8 g/dl (32-36); Mean Corpuscular Hemoglobin 28.6 pg (26-34); Mean Corpuscular Volume 92.8 fl (80-100); Mean Platelet Volume 9.5 fl (7.4-10.4); Monocytes Absolute Auto 0.7 K/mm3 (0.1-0.6); Monocytes Percent Auto 5.8 % (2.6-8.5); Neutrophils Absolute Auto 10.5 K/mm3 (1.3-6.7); Platelet Count Result 285 k/mm3 (150-375); Red Blood Count 4.02 M/mm3 (4.2-5.4); Red Cell Distribution Width 14.2 % (11.5-14.5); White Blood Count 12.7 K/mm3 (4.5-10.0)
[2022-06-16 12:27] LABS: Alanine Aminotransferase 23 U/L (6-35); Albumin Level 3.2 g/dL (3.5-5.1); Alkaline Phosphatase 82 U/L (38-126); Anion Gap 4 mmol/L (8-16); Aspartate Amino Transferase 40 U/L (14-36); Bilirubin,Total 0.3 mg/dL (0.2-1.3); Blood Urea Nitrogen 30 mg/dL (7-17); Calcium 8.4 mg/dL (8.4-10.2); Carbon Dioxide 34 mmol/L (22-30); Chloride 96 mmol/L (98-107); Estimated CRCL calculation 29 ml/min; Estimated Glomerular Filt Rate 43; Glucose 190 mg/dL (65-110); INR 1.1; Magnesium 2.2 mg/dL (1.6-2.3); Phosphorus 3.8 mg/dL (2.5-4.5); Potassium 3.6 mmol/L (3.4-5.0); Prothrombin Time 13.8 Seconds (11.1-14.7); Sodium 134 mmol/L (137-145)
[2022-06-16 12:28] LABS: Partial Thromboplastin Time 39.7 SECONDS (22.3-36.8)
--- NOTE | 2022-06-16 12:41 | PC.NURSE ---
This patient, Terri Rodriguez, was received from IMU on 06/16/22 at 1211. Patient/family oriented to unit policies and routines. Report received from Jojo ORTIZ.
[2022-06-16 12:51] LABS: Lactic Acid Reflex 0.9 mmol/L (0.7-2.0)
[2022-06-16] MEDS: ALBUTEROL SULFATE NEB 2.5 MG/3 ML INH 5 MG INHALATION ×2 (14:30→19:59)
[2022-06-16 14:34] LABS: Alveolar/Arterial O2 Gradient 383.5 mmHg; Base Excess ABG 12.1 mEq/l (+/-2.0); Fractional Inspired Oxygen 70 %; Oxygen Content ABG 15.9 %vol (16.0-22.0); Oxygen Saturation ABG 90.1 % (95.0-100.0); Oxyhemoglobin 89.6 % THb (90.0-100.0); PCO2 ABG 55.2 mmHg (35.0-45.0); PO2 ABG 56.3 mmHg (80.0-100.0); Total Hemoglobin 12.6 g/dL (12.0-18.0); pH ABG 7.456 (7.350-7.450)
[2022-06-16 16:25] LABS: Device NON-INVASIVE VENT; Modified Allen's Test Pass; Site Drawn LEFT RADIAL
[2022-06-16 16:26] LABS: Non-Invasive Expiratory Pressure 8 CMH2O; Non-Invasive Inspiratory Pressure 18 CMH2O; Non-Invasive Vent Rate 12 /MIN
[2022-06-16 17:00] LABS: Glucose Point of Care 50 mg/dl (65-105)
[2022-06-16] MEDS: DEXTROSE 50% 25 GM/50 ML SYRINGE IV PUSH (17:06)
[2022-06-16] MEDS: GABAPENTIN 400 MG CAPSULE 1200 MG PO (20:37)
[2022-06-16] MEDS: LATANOPROST 0.005% OP SOLN 2.5 ML BTL 1 DROP EACH EYE (20:39)
[2022-06-16] MEDS: INSULIN GLARGINE (*BKC) 100 UNITS/ML 13 UNITS SUB-Q (20:50)
[2022-06-16 23:38] LABS: Vancomycin Random 21.6 ug/mL (10-20)
[2022-06-17] VITALS (43 sets, daily range): BP systolic 124–161; BP diastolic 36–72; PULSE 63–92; RESP 15–40; TEMP 36.2–36.9; O2SAT 69–100; BMI 32.3
[2022-06-17] MEDS: IPRATROPIUM BR 0.02% INH SOLN 0.5 MG/2.5 ML VIAL INHALATION ×4 (03:09→21:06)
[2022-06-17] MEDS: ALBUTEROL SULFATE NEB 2.5 MG/3 ML INH 5 MG INHALATION ×4 (03:09→21:06)
[2022-06-17 03:50] LABS: Basophils Percent Auto 0.4 % (0.2-1.2); Eosinophils Absolute Auto 0.3 K/mm3 (0-0.3); Hematocrit 32.8 % (37.0-47.0); Immature Granulocyte Absolute 0.09 K/mm3 (0.00-0.031); Immature Granulocyte Percent A 0.9 % (0-0.5); Lymphocytes Absolute Auto 1.29 K/mm3 (0.9-3.2); Lymphocytes Percent Auto 12.6 % (18.3-44.2); Mean Corpuscular HGB Conc 30.5 g/dl (32-36); Mean Corpuscular Hemoglobin 27.9 pg (26-34); Mean Corpuscular Volume 91.6 fl (80-100); Mean Platelet Volume 9.2 fl (7.4-10.4); Monocytes Absolute Auto 1.1 K/mm3 (0.1-0.6); Monocytes Percent Auto 10.7 % (2.6-8.5); Neutrophils Absolute Auto 7.4 K/mm3 (1.3-6.7); Neutrophils Percent Auto 72.4 % (45.5-73.1); Platelet Count Result 253 k/mm3 (150-375); Red Blood Count 3.58 M/mm3 (4.2-5.4); Red Cell Distribution Width 13.8 % (11.5-14.5); White Blood Count 10.2 K/mm3 (4.5-10.0)
[2022-06-17 04:03] LABS: Alanine Aminotransferase 24 U/L (6-35); Albumin Level 2.8 g/dL (3.5-5.1); Alkaline Phosphatase 75 U/L (38-126); Anion Gap 4 mmol/L (8-16); Aspartate Amino Transferase 45 U/L (14-36); Bilirubin,Total 0.2 mg/dL (0.2-1.3); Blood Urea Nitrogen 31 mg/dL (7-17); Calcium 8.3 mg/dL (8.4-10.2); Carbon Dioxide 39 mmol/L (22-30); Chloride 95 mmol/L (98-107); Estimated CRCL calculation 27 ml/min; Estimated Glomerular Filt Rate 39; Glucose 119 mg/dL (65-110); Magnesium 2.3 mg/dL (1.6-2.3); Phosphorus 4.8 mg/dL (2.5-4.5); Potassium 3.8 mmol/L (3.4-5.0); Sodium 138 mmol/L (137-145)
[2022-06-17 04:04] LABS: Lactic Acid Reflex 0.8 mmol/L (0.7-2.0)
[2022-06-17 05:37] LABS: Alveolar/Arterial O2 Gradient 399.3 mmHg; Base Excess ABG 14.1 mEq/l (+/-2.0); Carboxyhemoglobin 0.2 % THb (0-2.0); Fractional Inspired Oxygen 75 %; HCO3 ABG 41.2 mEq/l (22.0-26.0); Methemoglobin ABG 0.1 %THb (0-1.5); Oxygen Content ABG 17.7 %vol (16.0-22.0); Oxygen Saturation ABG 93.8 % (95.0-100.0); Oxyhemoglobin 93.4 % THb (90.0-100.0); PO2 ABG 68.9 mmHg (80.0-100.0); PO2 FiO2 Ratio Arterial Blood 0.92 %; Reduced Hemoglobin 6.3 %THb (0-5.0); Total Hemoglobin 13.5 g/dL (12.0-18.0); pH ABG 7.436 (7.350-7.450)
[2022-06-17 05:43] LABS: PCO2 ABG 62.6 mmHg (35.0-45.0)
[2022-06-17 05:45] LABS: Device NON-INVASIVE VENT; Non-Invasive Expiratory Pressure 8 CMH2O; Non-Invasive Inspiratory Pressure 18 CMH2O; Non-Invasive Vent Rate 12 /MIN; Site Drawn RIGHT BRACHIAL
[2022-06-17 07:29] LABS: Glucose Point of Care 81 mg/dl (65-105)
[2022-06-17] MEDS: ALBUMIN HUMAN 25% 25 GM/100 ML 100 ML IVPB (08:21)
[2022-06-17] MEDS: ROSUVASTATIN 10 MG TABLET PO (08:25)
[2022-06-17] MEDS: hydrALAZINE 10 MG TABLET PO ×4 (08:25→21:16)
[2022-06-17] MEDS: BUMETANIDE INJ 1 MG/4 ML VIAL IV PUSH ×2 (08:26→16:44)
[2022-06-17] MEDS: GABAPENTIN 300 MG CAPSULE 600 MG PO (08:26)
[2022-06-17] MEDS: amLODIPine BESYLATE 5 MG TABLET 10 MG PO (08:26)
[2022-06-17] MEDS: EMPAGLIFLOZIN 10 MG TABLET PO (08:26)
[2022-06-17] MEDS: polyethylene glycoL 3350 17 GM POWD.PACK PO (08:27)
--- NOTE | 2022-06-17 09:03 | PM.PNPUL ---
Progress Note: A&P Assessment and Plan (1) Acute respiratory failure with hypoxia and hypercapnia: Code(s): J96.01 - Acute respiratory failure with hypoxia; J96.02 - Acute respiratory failure with hypercapnia Status: Acute Assessment and Plan: ?this 82-year-old female presented with shortness of breath, hypercapnic hypoxemic respiratory failure, with evidence of bilateral pulmonary infiltrates and small pleural effusions on chest imaging studies which in conjunction with the patient's long history of congestive heart failure suggest respiratory failure related to pulmonary edema / congestive heart failure.? As stated, patient has chronically elevated pulmonary artery systolic pressure, left ventricular diastolic dysfunction grade 3, moderately enlarged left atrium on last echocardiogram.? Patient has been on treatment for congestive heart failure. Over the last 24 hours her respiratory status has has been essentially unchanged, with BiPAP support at night. Today's chest X-ray showed essentially no significant change. Lung congestion and pleural effusions as before. Patient scheduled for right thoracentesis. Started empirically on antibiotics presumably for lower respiratory tract infection. She still on diuretic. Plan continue with same treatment. Await results of pleural fluid analysis post thoracentesis. ? (2) Congestive heart failure: Code(s): I50.9 - Heart failure, unspecified Status: Chronic (3) Pulmonary hypertension: Code(s): I27.20 - Pulmonary hypertension, unspecified Status: Acute Assessment and Plan: The patient has severe pulmonary hypertension as calculated by recent echocardiogram.? The patient's pulmonary hypertension is probably related to left ventricular diastolic dysfunction and untreated sleep disordered breathing. This degree of pulmonary hypertension is [id number] to her cardiac hemodynamic status.? 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 I would suggest? follow-up with? lung perfusion scan to exclude chronic thromboembolic pulmonary hypertension.? This can be done after improvement of her pulmonary edema.? Patient carries history of COPD but pulmonary function testing approximately 10 years ago showed no evidence of obstructive airway disease.? She will need repeat pulmonary function testing on an outpatient basis. 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 Used BiPAP support last night with high pressure 14/03. Currently on high-flow nasal cannula. Shortness of breath as before. Started on antibiotics and also on albumin IV. Afebrile. Review of Systems Review of Systems: All systems reviewed & are unremarkable except as noted in HPI and below Exam Narrative: GENERAL APPEARANCE: Well developed, well nourished, alert and cooperative, who appears to be in mild- moderate respiratory distress while sitting up in bed On high-flow nasal cannula SKIN: Inspection of the skin reveals no rashes, ulcerations or petechiae. HEENT: Sclerae anicteric and conjunctivae pink and moist. Extraocular movements were intact and pupils were equal, round. NECK: Supple. There was no thyroid enlargement, and no tenderness, or masses were felt. JVD present LUNGS: Auscultation of the lungs revealed normal diffuse rales posteriorly, no wheezing. tubular sounds at bases posteriorly. CARDIAC: There was a irregular rate and rhythm 3/6 sys
--- NOTE | 2022-06-17 09:23 | WPDINTPN ---
Progress Note: A&P Assessment and Plan (1) Acute respiratory failure with hypoxia and hypercapnia: Code(s): J96.01 - Acute respiratory failure with hypoxia; J96.02 - Acute respiratory failure with hypercapnia Status: Acute Assessment and Plan: 06/16/2022: Patient was evaluated the intermediate Unit for worsening respiratory status, increasing oxygen requirements on BiPAP. Patient was transferred to the ICU for further management -worsening respiratory status likely related to bilateral pleural effusions, pneumonia, pulmonary edema, severe pulmonary hypertension, ? Possible infection -patient currently is on BiPAP, settings 18/8, rate of 12 and 70% FiO2 O2 sats -will try Airvo during the day and see if patient tolerates. May need to go on BiPAP. May need intubation urates further -06/16: CT chest showed diffuse bilateral pulmonary edema and/or pneumonia, moderate-size bilateral posterior layering pleural effusion with complete collapse of the right lower lobe and nearly complete collapse of the left lower lobe, cardiomegaly could likely reactive mediastinal lymphadenopathy, multinodular goiter. Chest x-ray reviewed and shows IMPRESSION: 1. Stable airspace opacities in right mid and lower lung zones and all left lung zones, consistent with pulmonary edema versus pneumonia. 2. Stable moderate-sized pleural effusions. 3. Cardiomegaly -continue Bumex. Albumin ordered -request intervention Radiology for thoracentesis today. Will start with right side although patient would benefit from both sides -continue bronchodilators -continue cefepime and vancomycin (06/16) -pulmonary following (2) Chronic obstructive pulmonary disease: Code(s): J44.9 - Chronic obstructive pulmonary disease, unspecified Status: Acute Assessment and Plan: Continue BiPAP, antibiotics. -patient is not wheezing, will hold off steroids (3) Congestive heart failure: Code(s): I50.9 - Heart failure, unspecified Status: Chronic Assessment and Plan: Congestive heart failure likely related to severe pulmonary hypertension, tricuspid valve regurg, essential hypertension, Echocardiogram from 04/09/2022 shows EF of 65-75%, grade 3 diastolic dysfunction, left atrial chamber moderately enlarged, right atrial chamber moderately enlarged, moderate aortic valve sclerosis, mild aortic valve stenosis, mitral valve has moderately thickened leaflets and severely calcified annulus, mild mitral valve regurg, moderate tricuspid valve regurg, severe pulmonary hypertension with RVSP of 113 mmHg -appreciate cardiology following the patient -continue diuresis, blood pressure control -in March when she was hospitalized patient was on lisinopril and atenolol, was found to be hyperkalemic, and bradycardic along with syncopal episode, lisinopril and atenolol were discontinued and patient was started on amlodipine and hydralazine for blood pressure control Cardiology following (4) CKD (chronic kidney disease): Code(s): N18.9 - Chronic kidney disease, unspecified Status: Acute Assessment and Plan: Patient has a history of chronic kidney disease with baseline creatinine of 1.0-1.3, on admission patient's creatinine was 1.6 likely related to hypoxia. Not on any JULIET/ ARB at home -patient being aggressively diuresed, making good urine -continue monitor renal function, electrolytes and urine output (5) Insulin dependent type 2 diabetes mellitus: Code(s): E11.9 - Type 2 diabetes mellitus without complications; Z79.4 - halfway (current) use of insulin Status: Acute Assessment and Plan: Patient with history of insulin dependent diabetes, - hemoglobin A1c this admission is 9.5 -she is on Jardiance -hold Lantus at this time due to episode of hypoglycemia yesterday -continue Accu-Cheks and sliding scale insulin (6) HTN (hypertension), malignant: Code(s): I10 - Essential (primary) hypertension Status: Chr
--- NOTE | 2022-06-17 09:35 | PM.IMPN ---
Progress Note: A&P Assessment and Plan (1) Acute respiratory failure with hypoxia and hypercapnia: Code(s): J96.01 - Acute respiratory failure with hypoxia; J96.02 - Acute respiratory failure with hypercapnia Status: Acute Assessment and Plan: Condition complicated by her untreated HENRY and severe pHTN. Transferred to ICU. Placed on BiPAP. Continue nebulizer treatments. (2) Pneumonia: Code(s): J18.9 - Pneumonia, unspecified organism Status: Acute Assessment and Plan: Chest x-ray showing persistent mid and lower lung airspace opacities. She has a minimal cough. On IV cefepime and vancomycin per senior accounting specialist (3) MYRNA (acute kidney injury): Code(s): N17.9 - Acute kidney failure, unspecified Status: Acute Assessment and Plan: trending downwards no IV fluids given bilateral pleural effusion suggestive of fluid overload Avoid nephrotoxic drugs. (4) Congestive heart failure: Code(s): I50.9 - Heart failure, unspecified Status: Chronic Assessment and Plan: Has dependent edema noted past few day. BNP 6400 and CXR showing pleural effusions and CMG. Echo from March showing EF 65-70%, Grade III diastolic dysfunction, moderate TR and severe pulmonary HTN (113mmHg). Possibly mild CHF exacerbation but more likely related to severe pulm HTN. On IV Bumex (5) Insulin dependent type 2 diabetes mellitus: Code(s): E11.9 - Type 2 diabetes mellitus without complications; Z79.4 - [facility] (current) use of insulin Status: Acute Assessment and Plan: A1c was 9.5. Yearly eye exam and foot exam. HBA1c 9.5 ( goal <7.0%) , Routine glucose monitoring. Watch for Hypoglycemia. BMI goal < 25 (6) Obstructive sleep apnea: Code(s): G47.33 - Obstructive sleep apnea (adult) (pediatric) Status: Acute Assessment and Plan: Patient is noncompliant with sleep apnea treatment which is probably contributing to her respiratory failure. She does have severe pulmonary HTN. Subjective Date/time seen: 06/17/22 09:35 Patient currently on high-flow oxygen. States feels little better Review of Systems Review of Systems: All systems reviewed & are unremarkable except as noted in HPI and below Exam Narrative: GENERAL APPEARANCE: alert and cooperative, who appears to be in mild- moderate respiratory distress while sitting up in bed On high-flow nasal cannula SKIN: Inspection of the skin reveals no rashes, ulcerations or petechiae. HEENT: Sclerae anicteric and conjunctivae pink and moist. Extraocular movements were intact and pupils were equal, round. NECK: Supple. There was no thyroid enlargement, and no tenderness, or masses were felt. JVD present LUNGS: Auscultation of the lungs revealed normal diffuse rales posteriorly, no wheezing. tubular sounds at bases posteriorly. CARDIAC: There was a irregular rate and rhythm 3/6 systolic ejection murmur at apex ABDOMEN: Soft and nontender with normal bowel sounds. There was no organomegaly. LYMPH NODES: No lymphadenopathy was appreciated in the neck. EXTREMITIES: No cyanosis, clubbing or edema. NEUROLOGIC: Alert and oriented x 3. Normal affect. Objective Data Vital Signs Vital Signs: Vital Signs - 24 hr 06/16/22 10:00 06/16/22 12:09 06/16/22 12:21 Temperature 98.6 F Pulse Rate 80 81 75 Respiratory Rate 24 H 25 H Blood Pressure 123/66 Pulse Oximetry 93 96 Oxygen Delivery Oxygen Flow Rate Fraction of Inspired Oxygen 06/16/22 14:30 06/16/22 14:30 06/16/22 14:44 Temperature Pulse Rate 74 86 Respiratory Rate 29 H 29 H 28 H Blood Pressure Pulse Oximetry 97 Oxygen Delivery BiPAP Oxygen Flow Rate Fraction of Inspired Oxygen 06/16/22 16:00 06/16/22 14:00 06/16/22 16:00 Temperature 97.8 F Pulse Rate 81 84 Respiratory Rate 19 Blood Pressure 147/76 H Pulse Oximetry 98 97 Oxygen Delivery BiPAP Oxygen Flow Rate Fraction of Inspired Ox
[2022-06-17 09:49] LABS: Glucose Point of Care 81 mg/dl (65-105)
[2022-06-17 10:37] LABS: Glucose Point of Care 125 mg/dl (65-105)
[2022-06-17] MEDS: ACETAMINOPHEN 325 MG TABLET 650 MG PO ×3 (11:07→21:35)
[2022-06-17 13:18] LABS: Pleural fluid source Pleural fluid
[2022-06-17 13:19] LABS: Appearance Pleural Fluid Hazy (Clear); Color Pleural Fluid Other (Colorless)
[2022-06-17 13:20] LABS: Lymphocytes Pleural Fluid 50 %; Mesothelial Cells Pleural Flui 8 %; Monocytes Pleural Fluid 29 %; Neutrophils Pleural Fluid 13 % (0-25)
[2022-06-17 15:59] LABS: Glucose Point of Care 250 mg/dl (65-105)
[2022-06-17] MEDS: INSULIN ASPART (*BKC) 100 UNITS/ML SUB-Q (16:42)
[2022-06-17] MEDS: LIDOCAINE HCL 2% VISC SOLN 15 ML UDC PO (17:13)
--- NOTE | 2022-06-17 17:36 | PCRCNOTE ---
Pt was placed on Vapotherm throughout the day during meals at settings of 45L 100%, high FiO2 due to low Spo2 lower then 88%, Pt after meals was placed back on BiPAP due to work of breathing at settings of IPAP 18 EPAP 8 Rate of 12 90%.
[2022-06-17] MEDS: GABAPENTIN 400 MG CAPSULE 1200 MG PO (21:15)
[2022-06-17] MEDS: LATANOPROST 0.005% OP SOLN 2.5 ML BTL 1 DROP EACH EYE (21:16)
[2022-06-17 21:37] LABS: Glucose Point of Care 239 mg/dl (65-105)
[2022-06-17] MEDS: ETOMIDATE 20 MG/10 ML AMPUL IV PUSH (23:17)
[2022-06-17] MEDS: SUCCINYLCHOLINE CHLORIDE 20 MG/ML 10 ML VIAL 100 MG IV PUSH (23:18)
[2022-06-17] MEDS: PROPOFOL IV EMULSION 100 ML 2.25 MG IV CONT (23:25)
--- NOTE | 2022-06-17 23:27 | WPDPROCEDUR ---
Procedures Intubation Intubation Date: 06/17/22 Intubation Time: 23:15 A pre-procedural Time-Out was completed immediately before starting the procedure and confirmed: Patient Identification, Site, Procedure, Patient Position and the Availability of Requisite Equipment: Yes Sedative: etomidate Mg given: 20 Paralytic: succinylcholine Mg given: 100 Laryngoscope: fiber optic video scope ET tube size: 7 Tube secured depth (cm): 22 Tube secured location: other (gums) Tube placement confirmation: visualized tube passing through cords, equal breath sounds bilaterally, no breath sounds over epigastrium and confirmation by capnometry Patient tolerated procedure: well Intubation complications: none Additional comments: The patient had been desatting to low 70s despite BiPAP therapy. She was fatigued and having increased respiratory distress. Decision was made to intubate. Patient was preoxygenated had prior to intubation with increased the PEEP up to 12 on her BiPAP at 100% FiO2. Her preintubation oxygen saturations were between 86 and 87%. During process of intubation the patient dropped to 84% briefly but immediately after intubation oxygen saturations improved to 100%. Patient was being bagged with 15 of PEEP during intubation process. Equal breath sounds noted. Awaiting post intubation x-ray.
[2022-06-17] MEDS: FENTANYL 2,500MCG/NS250ML(*CRX 2,500 MCG/250 ML BAG IV CONT (23:30)
[2022-06-18] VITALS (39 sets, daily range): BP systolic 118–143; BP diastolic 43–82; PULSE 59–88; RESP 12–18; TEMP 36.6–38; O2SAT 91–100; BMI 31.8
[2022-06-18 00:13] LABS: Alveolar/Arterial O2 Gradient 585.1 mmHg; Base Excess ABG 10.2 mEq/l (+/-2.0); Carboxyhemoglobin 0.3 % THb (0-2.0); Fractional Inspired Oxygen 100 %; HCO3 ABG 36.1 mEq/l (22.0-26.0); Methemoglobin ABG 0.3 %THb (0-1.5); Oxygen Content ABG 15.7 %vol (16.0-22.0); Oxygen Saturation ABG 94.9 % (95.0-100.0); Oxyhemoglobin 93.5 % THb (90.0-100.0); PCO2 ABG 54.6 mmHg (35.0-45.0); PO2 ABG 73.3 mmHg (80.0-100.0); PO2 FiO2 Ratio Arterial Blood 0.73 %; Reduced Hemoglobin 5.9 %THb (0-5.0); Total Hemoglobin 11.9 g/dL (12.0-18.0); pH ABG 7.438 (7.350-7.450)
[2022-06-18 00:15] LABS: Device VENTILATOR; Modified Allen's Test Pass; Site Drawn RIGHT RADIAL
[2022-06-18 00:16] LABS: Arterial Blood Gas PEEP 10 cmH2O; Arterial Blood Gas Tidal Volume 400 ml; Arterial Blood Gas Vent Mode CMV; Arterial Blood Gas Ventilator rate 18 /MIN
--- NOTE | 2022-06-18 02:52 | PC.NURSE ---
06/17/2245 Spoke with patient and son Philip on speaker phone and explained that with the bipap maxed out we could not keep patients O2 saturations at 88%. O2 saturations were running 80 to 87%. Explained I had spoken to DR Rowland and he recommended intubation due to risk for cardiac arrest if O2 saturations continue to decline. Pt states she wants a chance to get better and Son supports Mother's decision. Explained to the patient that she will be on medications to keep her comfortable but she will not be able to speak to people or eat and she will have a tube down into her stomach to give her nutrition. After intubation Du Palacios was called again to let him know that everything went smoothly, patient was resting comfortably, and that she had requested he call his brother and sister in law to update them prior to intubation. Philip asked if he should call family in from out of state because she may pass. Explained that her condition has declined over the last few days and that the ventilator wont fix the issue but allow us more time to treat the issue. Told Philip to at least give his mother 48-72 to see how she does and reassured him the [facility] will be honest with him per her prognosis.
[2022-06-18 03:17] LABS: Hemoglobin 9.5 g/dL (12.0-15.0); Mean Corpuscular HGB Conc 30.6 g/dl (32-36); Mean Corpuscular Hemoglobin 28.4 pg (26-34); Mean Corpuscular Volume 92.8 fl (80-100); Mean Platelet Volume 9.4 fl (7.4-10.4); Platelet Count Result 239 k/mm3 (150-375); Red Blood Count 3.34 M/mm3 (4.2-5.4); Red Cell Distribution Width 13.9 % (11.5-14.5); White Blood Count 13.4 K/mm3 (4.5-10.0)
[2022-06-18 03:19] LABS: Glucose Point of Care 218 mg/dl (65-105)
[2022-06-18 03:27] LABS: Alanine Aminotransferase 67 U/L (6-35); Albumin Level 2.9 g/dL (3.5-5.1); Alkaline Phosphatase 130 U/L (38-126); Anion Gap 6 mmol/L (8-16); Aspartate Amino Transferase 145 U/L (14-36); Bilirubin,Total 0.6 mg/dL (0.2-1.3); Blood Urea Nitrogen 34 mg/dL (7-17); Calcium 8.1 mg/dL (8.4-10.2); Carbon Dioxide 36 mmol/L (22-30); Chloride 94 mmol/L (98-107); Estimated CRCL calculation 28 ml/min; Estimated Glomerular Filt Rate 39; Glucose 219 mg/dL (65-110); Magnesium 2.3 mg/dL (1.6-2.3); Potassium 3.8 mmol/L (3.4-5.0); Sodium 136 mmol/L (137-145)
[2022-06-18] MEDS: IPRATROPIUM BR 0.02% INH SOLN 0.5 MG/2.5 ML VIAL INHALATION ×4 (03:38→21:50)
[2022-06-18] MEDS: ALBUTEROL SULFATE NEB 2.5 MG/3 ML INH 5 MG INHALATION ×4 (03:38→21:50)
[2022-06-18] MEDS: PROPOFOL IV EMULSION 100 ML 9 MG IV CONT (05:48)
[2022-06-18 06:46] LABS: PCO2 ABG 46.1 mmHg (35.0-45.0); pH ABG 7.539 (7.350-7.450)
[2022-06-18 06:47] LABS: Base Excess ABG 14.3 mEq/l (+/-2.0); HCO3 ABG 38.4 mEq/l (22.0-26.0); Oxygen Saturation ABG 97.5 % (95.0-100.0); Total Hemoglobin 10.3 g/dL (12.0-18.0)
[2022-06-18 06:49] LABS: Carboxyhemoglobin 0.3 % THb (0-2.0); Methemoglobin ABG 0.1 %THb (0-1.5); Oxyhemoglobin 96.1 % THb (90.0-100.0); PO2 FiO2 Ratio Arterial Blood 0.98 %; Reduced Hemoglobin 3.5 %THb (0-5.0)
[2022-06-18 06:50] LABS: Device VENTILATOR; Fractional Inspired Oxygen 90 %; Modified Allen's Test Pass; Site Drawn RIGHT RADIAL
[2022-06-18 06:51] LABS: Arterial Blood Gas PEEP 10 cmH2O; Arterial Blood Gas Tidal Volume 360 ml; Arterial Blood Gas Vent Mode CMV; Arterial Blood Gas Ventilator rate 18 /MIN
[2022-06-18 07:58] LABS: Glucose Point of Care 159 mg/dl (65-105)
[2022-06-18] MEDS: ROSUVASTATIN 10 MG TABLET PO (07:59)
[2022-06-18] MEDS: POTASSIUM CHLORIDE 20 MEQ PACKET (FOR LIQUID) FEED TUBE (07:59)
[2022-06-18] MEDS: MINERAL OIL/WHITE PETROLATUM OINTMENT 1 APPLIC EACH EYE ×2 (08:03→20:50)
[2022-06-18] MEDS: BUMETANIDE INJ 1 MG/4 ML VIAL IV PUSH ×2 (08:03→17:16)
[2022-06-18] MEDS: polyethylene glycoL 3350 17 GM POWD.PACK PO (08:03)
--- NOTE | 2022-06-18 08:05 | PCOTNOTE ---
Pt. intubated at this time. D/C therapy services, and re-order evaluation, when medically stable to participate.
[2022-06-18] MEDS: PANTOPRAZOLE SODIUM IV 40 MG VIAL IV PUSH (08:06)
[2022-06-18] MEDS: LIDOCAINE HCL 1% PF INJ 5 ML VIAL INFILTRATE (09:00)
--- NOTE | 2022-06-18 09:01 | WPDINTPN ---
Progress Note: A&P Assessment and Plan (1) Acute respiratory failure with hypoxia and hypercapnia: Code(s): J96.01 - Acute respiratory failure with hypoxia; J96.02 - Acute respiratory failure with hypercapnia Status: Acute Assessment and Plan: 06/16/2022: Patient was evaluated the intermediate Unit for worsening respiratory status, increasing oxygen requirements on BiPAP. Patient was transferred to the ICU for further management 06/17 -hypoxic despite 100% FiO2 on BiPAP. Intubated and placed on mechanical ventilation Multifactorial respiratory failure secondary to bilateral pleural effusions, possible pneumonia, pulmonary edema, severe pulmonary hypertension, COPD? -06/16: CT chest showed diffuse bilateral pulmonary edema and/or pneumonia, moderate-size bilateral posterior layering pleural effusion with complete collapse of the right lower lobe and nearly complete collapse of the left lower lobe, cardiomegaly could likely reactive mediastinal lymphadenopathy, multinodular goiter. 06/17 -right thoracentesis done and 550 mL fluid was removed. Appears to be transudate on a ferrari studies although additional studies are pending Chest x-ray reviewed ABG reviewed-decrease tidal volume to 320 and rate to 15. Wean FiO2 to 50% -continue Bumex. Albumin ordered -request intervention Radiology for left-sided thoracentesis today. -continue bronchodilators -continue cefepime and vancomycin (06/16) -pulmonary following (2) Chronic obstructive pulmonary disease: Code(s): J44.9 - Chronic obstructive pulmonary disease, unspecified Status: Acute Assessment and Plan: Patient is not wheezing, will hold off steroids (3) Congestive heart failure: Code(s): I50.9 - Heart failure, unspecified Status: Chronic Assessment and Plan: Congestive heart failure likely related to severe pulmonary hypertension, tricuspid valve regurg, essential hypertension, Echocardiogram from 04/09/2022 shows EF of 65-75%, grade 3 diastolic dysfunction, left atrial chamber moderately enlarged, right atrial chamber moderately enlarged, moderate aortic valve sclerosis, mild aortic valve stenosis, mitral valve has moderately thickened leaflets and severely calcified annulus, mild mitral valve regurg, moderate tricuspid valve regurg, severe pulmonary hypertension with RVSP of 113 mmHg -appreciate cardiology following the patient -continue diuresis, blood pressure control -in March when she was hospitalized patient was on lisinopril and atenolol, was found to be hyperkalemic, and bradycardic along with syncopal episode, lisinopril and atenolol were discontinued and patient was started on amlodipine and hydralazine for blood pressure control Cardiology following (4) CKD (chronic kidney disease): Code(s): N18.9 - Chronic kidney disease, unspecified Status: Acute Assessment and Plan: Patient has a history of chronic kidney disease with baseline creatinine of 1.0-1.3, on admission patient's creatinine was 1.6 likely related to hypoxia. Not on any JULIET/ ARB at home -patient being aggressively diuresed, making good urine -continue monitor renal function, electrolytes and urine output (5) Insulin dependent type 2 diabetes mellitus: Code(s): E11.9 - Type 2 diabetes mellitus without complications; Z79.4 - jail (current) use of insulin Status: Acute Assessment and Plan: Patient with history of insulin dependent diabetes, - hemoglobin A1c this admission is 9.5 -start tube feeds -continue Lantus -continue Accu-Cheks and sliding scale insulin (6) HTN (hypertension), malignant: Code(s): I10 - Essential (primary) hypertension Status: Chronic Assessment and Plan: Essential hypertension, blood pressure medications on hold as patient is now sedated -also on Bumex IV Continue to monitor blood pressures closely and treat accordingly (7) Hyperlipidemia: Code(s): E78.5 - Hyperlipidemia,
--- NOTE | 2022-06-18 11:52 | PCNFU ---
Nutrition Follow-Up Complete: Potential for inadequate oral intake related to respiratory status as evidenced by ICU status, need for high flow oxygen. goal: Meet nutrition needs Patient is progressing towards goal. We will continue current goal Pt current nutrition is Glucerna 1.2 at 50 ml/hr. Last recorded weight is 74.1 kg, Bowel Motility:Last BM reported 06/13 Labs Reviewed:Glu 219, Alb 2.9,Na 136, BUN 34, GFR 39, Cr 1.3 Meds Noted:Miralax, Crestor, Propofol at 11.25 ml/hr, Bumex,Fentanyl. Skin: WNL Additional Notes: Patient intubated. Plans for Thoracentesis this afternoon. Tube feedings to start after procedure. Glucerna 1.2 at 50 ml/hr goal rate at this time due to 297 kcal from propofol. Patient kcal intake at goal rate will be providing 1617 kcals/66 gms protein/886 ml water (22 kcal/kg). Flush 30 ml q 4 hours. Tube feedings are appropriate at this time. Will continue to monitor propofol infusion for any recommendations for rate changes. Monitoring plan of care, PO intake, labs, weights. Follow daily in ICU rounds. Follow up/reassess every Friday and Friday.
[2022-06-18] MEDS: ALBUMIN HUMAN 25% 25 GM/100 ML 100 ML IVPB ×3 (11:58→23:42)
--- NOTE | 2022-06-18 12:10 | PM.PNCARD ---
Progress Note: A&P Assessment and Plan (1) Paroxysmal atrial tachycardia: Code(s): I47.1 - Supraventricular tachycardia Status: Acute Assessment and Plan: Patient with asymptomatic frequent brief runs of paroxysmal atrial tachycardia as well as frequent premature atrial contractions off beta-catarina therapy, improved. Metoprolol started 06/12 with significant reduction in burden, now discontinued. No atrial fibrillation seen on telemetry thus far. She remains at increased risk for arrhythmias given comorbidities, severe pulmonary hypertension, untreated obstructive sleep apnea. Cardiology will see her intermittently. Please do not hesitate to call with questions. (2) Premature atrial contractions: Code(s): I49.1 - Atrial premature depolarization Status: Acute Assessment and Plan: As above, asymptomatic. Previously responded to metoprolol which has been discontinued. Continue telemetry (3) Pneumonia: Code(s): J18.9 - Pneumonia, unspecified organism Status: Acute Assessment and Plan: Pneumonia with respiratory failure. Management per hospitalist service. She is currently being treated for pneumonia as well with antibiotics. Low-grade fever noted today. (4) Pulmonary hypertension: Code(s): I27.20 - Pulmonary hypertension, unspecified Status: Acute Assessment and Plan: Severe with RVSP estimated at 113 mm Hg. Must avoid excessive hypotension due to the dangers associated with PA systolic pressures approaching systolic blood pressure Patient is at high risk with poor prognosis from this perspective alone. Etiology very likely multifactorial with clinical picture suggestive of pre and post capillary contribution although right heart catheterization would be required for further delineation. (5) Chronic obstructive pulmonary disease: Code(s): J44.9 - Chronic obstructive pulmonary disease, unspecified Status: Acute Assessment and Plan: COPD with respiratory failure, requiring intubation. Management per primary service. (6) Congestive heart failure: Code(s): I50.9 - Heart failure, unspecified Status: Chronic Assessment and Plan: Acute diastolic CHF Has bilateral pleural effusions, s/p bilateral thoracentesis Agree w/ Bumex 1 mg IVP BID. Subjective Date/time seen: Cardiology follow up for frequent PAC's, paroxysmal atrial tachycardia. Echo 03/2022 showed EF 65-70%, diastolic dysfunction, mild to moderate valve disease, severe hypertension with RVSP of 113 mmHg. 06/14/22? 08:50 Feeling very tired today.? Denies any chest pain, palpitations.? Does have shortness of breath.? No swelling.? Remains in sinus rhythm with PAC's. Metoprolol reduced due to history of bradycardia. 06/18/22 12:10 Patient was intubated overnight. No longer on metoprolol. She had right-sided thoracentesis yesterday, 500 cc's transudative fluid removed. Had thoracentesis of the left side today, 900 cc removed. Remains on a ventilator with FiO2 now reduced to 60%, being diuresed with Bumex. Remains on antibiotics. Telemetry: Normal sinus rhythm with APCs. Review of Systems Review of Systems: ROS obtained fr RN, EMR ROS unobtainable: Yes unobtainable due to endotracheal tube, unobtainable due to medical condition and unobtainable due to mental status Constitutional: Constitutional: Denies fever(s) Cardiovascular: Cardiovascular: Denies chest pain and Denies leg edema Respiratory: Respiratory: Reports dyspnea Gastrointestinal: Gastrointestinal: Denies abdominal pain Musculoskeletal: Musculoskeletal: Reports no additional musculoskeletal complaints Integumentary/Breasts: Skin/Breast: Reports system reviewed and no additional complaints, except as docu Neurologic: Reports system reviewed and no additional complaints, except as documented, Denies behavioral changes and Denies confusion Psychiatric: Psyc
[2022-06-18 12:13] LABS: Glucose Point of Care 162 mg/dl (65-105)
--- NOTE | 2022-06-18 12:19 | PM.IMPN ---
Progress Note: A&P Assessment and Plan (1) Acute respiratory failure with hypoxia and hypercapnia: Code(s): J96.01 - Acute respiratory failure with hypoxia; J96.02 - Acute respiratory failure with hypercapnia Status: Acute Assessment and Plan: Patient presents with SOB and found to have acute respiratory failure and was started on BiPAP on 06/10.?Worsening respiratory status and increasing oxygen requirements on BiPAP so moved to ICU on 06/16. Patient was hypoxic despite 100% FiO2 on BiPAP so intubated and placed on mechanical ventilation evening of 06/17. Multifactorial respiratory failure secondary to bilateral pleural effusions, possible pneumonia, pulmonary edema, severe pulm HTN, atelectasis and/or COPD. -Bilateral thoracentesis completed (right 06/17, left 06/18) -continue Bumex. Albumin ordered -continue bronchodilators -continue cefepime and vancomycin (06/16) -pulmonary and agriculture inspector following and appreciate their input (2) Pneumonia: Code(s): J18.9 - Pneumonia, unspecified organism Status: Acute Assessment and Plan: Concern for possible PNA. Continue current IV abx. Continue neb treatments. (3) Congestive heart failure: Code(s): I50.9 - Heart failure, unspecified Status: Chronic Assessment and Plan: Congestive heart failure likely related to severe pulmonary hypertension, tricuspid valve regurg. Echo 04/09/22 shows EF of 65-75%, grade 3 diastolic dysfunction, left atrial chamber moderately enlarged, right atrial chamber moderately enlarged, moderate aortic valve sclerosis, mild aortic valve stenosis, mitral valve has moderately thickened leaflets and severely calcified annulus, mild mitral valve regurg, moderate tricuspid valve regurg, severe pulmonary hypertension with RVSP of 113 mmHg. In March when she was hospitalized patient was on lisinopril and atenolol, was found to be hyperkalemic, and bradycardic along with syncopal episode, lisinopril and atenolol were discontinued and patient was started on amlodipine and hydralazine for blood pressure control -appreciate cardiology input -continue diuresis (4) Pleural effusion: Code(s): J90 - Pleural effusion, not elsewhere classified Status: Acute Assessment and Plan: CT chest 06/16 showed diffuse bilateral pulmonary edema and/or pneumonia, moderate-size bilateral posterior layering pleural effusion with complete collapse of the right lower lobe and nearly complete collapse of the left lower lobe, cardiomegaly, reactive mediastinal lymphadenopathy and multinodular goiter. 06/17 -right thoracentesis and 550 mL fluid removed. 06/18 - left thoracentesis with 900mL removed. Studies pending but appears transudative thus far -continue Bumex. (5) Pulmonary hypertension: Code(s): I27.20 - Pulmonary hypertension, unspecified Status: Acute Assessment and Plan: Severe pulmonary hypertension likely causing congestive heart failure and acute respiratory failure; felt related to untreated obstructive sleep apnea -appreciate pulmonology input (6) Chronic obstructive pulmonary disease: Code(s): J44.9 - Chronic obstructive pulmonary disease, unspecified Status: Acute Assessment and Plan: Patient is not wheezing, will hold off steroids (7) CKD (chronic kidney disease): Code(s): N18.9 - Chronic kidney disease, unspecified Status: Acute Assessment and Plan: Patient has a history of chronic kidney disease with baseline creatinine of 1.0-1.3, on admission patient's creatinine was 1.6 likely related to hypoxia. Not on any JULIET/ ARB at home. 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
[2022-06-18] MEDS: CENTRAL LINE FLUSH 10 ML IV PUSH ×2 (13:27→22:37)
[2022-06-18 14:04] LABS: Non-Invasive Inspiratory Pressure 14 CMH2O; Non-Invasive Vent Rate 12 /MIN
[2022-06-18 14:05] LABS: Non-Invasive Expiratory Pressure 6 CMH2O
[2022-06-18] MEDS: PROPOFOL IV EMULSION 100 ML 11.25 MG IV CONT ×2 (16:10→23:43)
[2022-06-18 16:16] LABS: Glucose Point of Care 191 mg/dl (65-105)
[2022-06-18] MEDS: LATANOPROST 0.005% OP SOLN 2.5 ML BTL 1 DROP EACH EYE (20:49)
[2022-06-18] MEDS: INSULIN ASPART (*BKC) 100 UNITS/ML SUB-Q (20:49)
[2022-06-18 20:50] LABS: Glucose Point of Care 203 mg/dl (65-105)
[2022-06-18 22:21] LABS: Vancomycin Trough 20.5 ug/mL (10.0-20.0)
[2022-06-18 23:42] LABS: Glucose Point of Care 142 mg/dl (65-105)
[2022-06-19] VITALS (37 sets, daily range): BP systolic 100–138; BP diastolic 38–52; PULSE 70–95; RESP 14–22; TEMP 36.6–37.9; O2SAT 88–95
[2022-06-19] MEDS: ALBUTEROL SULFATE NEB 2.5 MG/3 ML INH 5 MG INHALATION ×4 (03:21→21:25)
[2022-06-19] MEDS: IPRATROPIUM BR 0.02% INH SOLN 0.5 MG/2.5 ML VIAL INHALATION ×4 (03:21→21:25)
[2022-06-19 04:30] LABS: Glucose Point of Care 182 mg/dl (65-105)
[2022-06-19 05:17] LABS: Hematocrit 27.5 % (37.0-47.0); Hemoglobin 8.4 g/dL (12.0-15.0); Mean Corpuscular HGB Conc 30.5 g/dl (32-36); Mean Corpuscular Hemoglobin 28.3 pg (26-34); Mean Corpuscular Volume 92.6 fl (80-100); Mean Platelet Volume 9.9 fl (7.4-10.4); Platelet Count Result 204 k/mm3 (150-375); Red Blood Count 2.97 M/mm3 (4.2-5.4); Red Cell Distribution Width 13.9 % (11.5-14.5); White Blood Count 11.7 K/mm3 (4.5-10.0)
[2022-06-19] MEDS: ALBUMIN HUMAN 25% 25 GM/100 ML 100 ML IVPB ×4 (05:43→23:27)
[2022-06-19] MEDS: CENTRAL LINE FLUSH 10 ML IV PUSH ×3 (05:43→20:13)
[2022-06-19 05:51] LABS: Alveolar/Arterial O2 Gradient 236.4 mmHg; Base Excess ABG 10.7 mEq/l (+/-2.0); Carboxyhemoglobin 0.3 % THb (0-2.0); Fractional Inspired Oxygen 50 %; HCO3 ABG 37.6 mEq/l (22.0-26.0); Methemoglobin ABG 0.2 %THb (0-1.5); Oxygen Content ABG 11.4 %vol (16.0-22.0); PO2 FiO2 Ratio Arterial Blood 0.95 %; Total Hemoglobin 9.8 g/dL (12.0-18.0); pH ABG 7.384 (7.350-7.450)
[2022-06-19 05:53] LABS: PCO2 ABG 64.4 mmHg (35.0-45.0)
[2022-06-19 05:54] LABS: Oxygen Saturation ABG 81.4 % (95.0-100.0); Oxyhemoglobin 82.5 % THb (90.0-100.0); PO2 ABG 47.7 mmHg (80.0-100.0)
[2022-06-19 05:55] LABS: Device VENTILATOR; Modified Allen's Test Pass; Site Drawn RIGHT RADIAL
[2022-06-19 05:57] LABS: Arterial Blood Gas PEEP 10 cmH2O; Arterial Blood Gas Tidal Volume 320 ml; Arterial Blood Gas Vent Mode CMV; Arterial Blood Gas Ventilator rate 15 /MIN
[2022-06-19 06:22] LABS: Alveolar/Arterial O2 Gradient 238.5 mmHg; Base Excess ABG 10.4 mEq/l (+/-2.0); Fractional Inspired Oxygen 50 %; HCO3 ABG 37.3 mEq/l (22.0-26.0); Oxygen Content ABG 12.2 %vol (16.0-22.0); PO2 FiO2 Ratio Arterial Blood 0.94 %; Total Hemoglobin 10.6 g/dL (12.0-18.0); pH ABG 7.389 (7.350-7.450)
[2022-06-19 06:24] LABS: PCO2 ABG 63.2 mmHg (35.0-45.0); PO2 ABG 46.9 mmHg (80.0-100.0)
[2022-06-19 06:25] LABS: Device VENTILATOR; Modified Allen's Test Unable to perform; Oxygen Saturation ABG 80.9 % (95.0-100.0); Oxyhemoglobin 81.5 % THb (90.0-100.0); Site Drawn RIGHT RADIAL
[2022-06-19 06:26] LABS: Arterial Blood Gas PEEP 10 cmH2O; Arterial Blood Gas Tidal Volume 320 ml; Arterial Blood Gas Vent Mode CMV; Arterial Blood Gas Ventilator rate 15 /MIN
[2022-06-19] MEDS: PROPOFOL IV EMULSION 100 ML 15.75 MG IV CONT (07:15)
[2022-06-19 07:25] LABS: Glucose Point of Care 233 mg/dl (65-105)
[2022-06-19 07:46] LABS: Alanine Aminotransferase 47 U/L (6-35); Albumin Level 3.4 g/dL (3.5-5.1); Alkaline Phosphatase 144 U/L (38-126); Anion Gap 11 mmol/L (8-16); Aspartate Amino Transferase 69 U/L (14-36); Bilirubin,Total 0.6 mg/dL (0.2-1.3); Blood Urea Nitrogen 41 mg/dL (7-17); Calcium 8.4 mg/dL (8.4-10.2); Carbon Dioxide 30 mmol/L (22-30); Chloride 95 mmol/L (98-107); Estimated CRCL calculation 21 ml/min; Estimated Glomerular Filt Rate 27; Glucose 228 mg/dL (65-110); Magnesium 2.4 mg/dL (1.6-2.3); Potassium 4.2 mmol/L (3.4-5.0); Sodium 136 mmol/L (137-145)
[2022-06-19] MEDS: INSULIN ASPART (*BKC) 100 UNITS/ML SUB-Q ×4 (08:22→23:29)
[2022-06-19] MEDS: BISACODYL 10 MG SUPPOSITORY RECTAL (08:22)
[2022-06-19] MEDS: ACETAMINOPHEN 325 MG TABLET 650 MG PO (08:22)
[2022-06-19] MEDS: polyethylene glycoL 3350 17 GM POWD.PACK PO (08:23)
[2022-06-19] MEDS: ROSUVASTATIN 10 MG TABLET PO (08:24)
[2022-06-19] MEDS: MINERAL OIL/WHITE PETROLATUM OINTMENT 1 APPLIC EACH EYE ×2 (08:24→20:13)
[2022-06-19] MEDS: PANTOPRAZOLE SODIUM IV 40 MG VIAL IV PUSH (08:24)
[2022-06-19] MEDS: ENOXAPARIN 30 MG/0.3 ML SYRINGE SUB-Q (08:24)
[2022-06-19] MEDS: INSULIN GLARGINE (*BKC) 100 UNITS/ML 13 UNITS SUB-Q (08:28)
--- NOTE | 2022-06-19 09:14 | WPDINTPN ---
Progress Note: A&P Assessment and Plan (1) Acute respiratory failure with hypoxia and hypercapnia: Code(s): J96.01 - Acute respiratory failure with hypoxia; J96.02 - Acute respiratory failure with hypercapnia Status: Acute Assessment and Plan: 06/16/2022: Patient was evaluated the intermediate Unit for worsening respiratory status, increasing oxygen requirements on BiPAP. Patient was transferred to the ICU for further management 06/17 -hypoxic despite 100% FiO2 on BiPAP. Intubated and placed on mechanical ventilation Multifactorial respiratory failure secondary to bilateral pleural effusions, possible pneumonia, pulmonary edema, severe pulmonary hypertension, COPD? -06/16: CT chest showed diffuse bilateral pulmonary edema and/or pneumonia, moderate-size bilateral posterior layering pleural effusion with complete collapse of the right lower lobe and nearly complete collapse of the left lower lobe, cardiomegaly could likely reactive mediastinal lymphadenopathy, multinodular goiter. 06/17 -right thoracentesis done and 550 mL fluid was removed. Appears to be transudate on initial studies although additional studies are pending 06/18-left thoracentesis performed and 900 mL fluid was removed Chest x-ray reviewed ABG reviewed -continue Bumex. Albumin to be continued -continue bronchodilators -continue cefepime and vancomycin (06/16) -pulmonary following (2) Chronic obstructive pulmonary disease: Code(s): J44.9 - Chronic obstructive pulmonary disease, unspecified Status: Acute Assessment and Plan: Patient is not wheezing, not on steroids (3) Congestive heart failure: Code(s): I50.9 - Heart failure, unspecified Status: Chronic Assessment and Plan: Congestive heart failure likely related to severe pulmonary hypertension, tricuspid valve regurg, essential hypertension, Echocardiogram from 04/09/2022 shows EF of 65-75%, grade 3 diastolic dysfunction, left atrial chamber moderately enlarged, right atrial chamber moderately enlarged, moderate aortic valve sclerosis, mild aortic valve stenosis, mitral valve has moderately thickened leaflets and severely calcified annulus, mild mitral valve regurg, moderate tricuspid valve regurg, severe pulmonary hypertension with RVSP of 113 mmHg -appreciate cardiology following the patient -continue cautious diuresis, blood pressure control -in March when she was hospitalized patient was on lisinopril and atenolol, was found to be hyperkalemic, and bradycardic along with syncopal episode, lisinopril and atenolol were discontinued and patient was started on amlodipine and hydralazine for blood pressure control Cardiology following (4) CKD (chronic kidney disease): Code(s): N18.9 - Chronic kidney disease, unspecified Status: Acute Assessment and Plan: Patient has a history of chronic kidney disease with baseline creatinine of 1.0-1.3, on admission patient's creatinine was 1.6 likely related to hypoxia. 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 Status: Acute Assessment and Plan: Patient with history of insulin dependent diabetes, - hemoglobin A1c this admission is 9.5 -start tube feeds -continue Lantus -continue Accu-Cheks and sliding scale insulin (6) HTN (hypertension), malignant: Code(s): I10 - Essential (primary) hypertension Status: Chronic Assessment and Plan: Essential hypertension, blood pressure medications on hold as patient is now sedated -also on Bumex IV Continue to monitor blood pressures closely and treat accordingly (7) Hyperlipidemia: Code(s): E78.5 - Hyperlipidemia, unspecified Status: Chronic Assessment and Plan: Con
--- NOTE | 2022-06-19 09:56 | PM.PNPUL ---
Progress Note: A&P Assessment and Plan (1) Acute respiratory failure with hypoxia and hypercapnia: Code(s): J96.01 - Acute respiratory failure with hypoxia; J96.02 - Acute respiratory failure with hypercapnia Status: Acute Assessment and Plan: ?this 82-year-old female presented with shortness of breath, hypercapnic hypoxemic respiratory failure, with evidence of bilateral pulmonary infiltrates and small pleural effusions on chest imaging studies which in conjunction with the patient's long history of congestive heart failure suggest respiratory failure related to pulmonary edema / congestive heart failure.? As stated, patient has chronically elevated pulmonary artery systolic pressure, left ventricular diastolic dysfunction grade 3, moderately enlarged left atrium on last echocardiogram.? Patient has been on treatment for congestive heart failure. Over the last 72 hours her respiratory status has worsened and patient was transferred to the intensive care unit where she is currently intubated and sedated on mechanical ventilation. She has undergone thoracentesis bilaterally. Preliminary fluid analysis showed a lymphocytic effusion probably related to congestive heart failure. Chest x-rays have shown new right lung infiltrate probably due to pneumonia. In addition the patient has increased bronchial secretions of light yellow color. She has been on antibiotics for nosocomial pneumonia. Plan: continue with same treatment. Await results of pleural fluid analysis. Sputum culture ordered. ? (2) Congestive heart failure: Code(s): I50.9 - Heart failure, unspecified Status: Chronic (3) Pulmonary hypertension: Code(s): I27.20 - Pulmonary hypertension, unspecified Status: Acute Assessment and Plan: The patient has severe pulmonary hypertension as calculated by recent echocardiogram.? The patient's pulmonary hypertension is probably related to left ventricular diastolic dysfunction and untreated sleep disordered breathing. This degree of pulmonary hypertension is [id number] to her cardiac hemodynamic status.? 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 I would suggest? follow-up with? lung perfusion scan to exclude chronic thromboembolic pulmonary hypertension.? This can be done after improvement of her pulmonary edema.? Patient carries history of COPD but pulmonary function testing approximately 10 years ago showed no evidence of obstructive airway disease.? She will need repeat pulmonary function testing on an outpatient basis. 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 She has been hemodynamically stable on high FiO2, low tidal volume mechanical ventilation. has been on antibiotics. increased bronchial secretions of thick light yellow color noted today. Creatinine rising. Review of Systems Review of Systems: ROS unobtainable: Yes unobtainable due to endotracheal tube Exam Narrative: GENERAL APPEARANCE: Well developed, well nourished, sedated on mechanical ventilation in the ICU SKIN: Inspection of the skin reveals no rashes, ulcerations or petechiae. HEENT: Sclerae anicteric and conjunctivae pink and moist. NECK: Supple. There was no thyroid enlargement. LUNGS: Auscultation of the lungs revealed normal right chest rhonchi anteriorly. CARDIAC: There was a irregular rate and rhythm 3/6 systolic ejection murmur at apex ABDOMEN: Soft with normal bowel sound
--- NOTE | 2022-06-19 11:04 | PCFNICU ---
ICU Rounding Note: Pt current nutrition is Glucerna 1.2 at 50 ml/hr Last recorded weight is 76.4 kg, up from 74.1 kg on admit. Bowel Motility:No BM reported, suppository given per nursing. Labs Reviewed:Glu 228,Cr 1.8,GFR 27, BUN 41, Alb 3.4,Na 136 Meds Noted:Miralax,Crestor, Propofol at 9 ml/hr,Fentanyl. Skin: left buttock-friction Additional Notes:Patient remains on mechanical vent and tube feedings of Glucerna 1.2 at 50 ml/hr and tolerating. Propofol at 9 ml/nt=404 kcals. Flush 30 ml q 4 hours. Recommend Triglyceride lab ordered. Agree with diet orders. Monitoring: Monitoring plan of care, PO intake, labs, weights. Follow daily in ICU rounds. Follow up/reassess every Friday and Friday.
[2022-06-19 11:58] LABS: Glucose Point of Care 232 mg/dl (65-105)
[2022-06-19 16:02] LABS: Glucose Point of Care 189 mg/dl (65-105)
[2022-06-19] MEDS: PROPOFOL IV EMULSION 100 ML 9 MG IV CONT (17:14)
--- NOTE | 2022-06-19 18:24 | PM.IMPN ---
Progress Note: A&P Assessment and Plan (1) Acute respiratory failure with hypoxia and hypercapnia: Code(s): J96.01 - Acute respiratory failure with hypoxia; J96.02 - Acute respiratory failure with hypercapnia Status: Acute Assessment and Plan: Patient presents with SOB and found to have acute respiratory failure and was started on BiPAP on 06/10.?Worsening respiratory status and increasing oxygen requirements on BiPAP so moved to ICU on 06/16. Patient was hypoxic despite 100% FiO2 on BiPAP so intubated and placed on mechanical ventilation evening of 06/17. Multifactorial respiratory failure secondary to bilateral pleural effusions, possible pneumonia, pulmonary edema, severe pulm HTN, atelectasis and/or COPD. -Bilateral thoracentesis completed (right 06/17, left 06/18) -Cr increased so Bumex held. Albumin continued -CXR showing diffuse lung disease worsening on the right (left lung improved overall) -ABG noted -continue bronchodilators -continue cefepime and vancomycin (06/16) -pulmonary and waxer floor following and appreciate their input (2) Pneumonia: Code(s): J18.9 - Pneumonia, unspecified organism Status: Acute Assessment and Plan: Concern for possible PNA. Influenza and COVID negative on admission. -BCx (06/10) growing Staph epi, Staph haemolytics and Staph cohnii -UCx (06/10, 06/14) negative -BCx (06/14) NGTD -Pleural fluid Cx (06/17) pending -Sputum Cx (06/19) pending [place] BCx from 06/10 to be contaminant. Continue current IV abx. Continue neb treatments. (3) Congestive heart failure: Code(s): I50.9 - Heart failure, unspecified Status: Chronic Assessment and Plan: Congestive heart failure likely related to diastolic dysfxn, severe pulmonary HTN and tricuspid valve regurg. Echo 04/09/22 shows EF 65-75%, grade 3 diastolic dysfunction, LAE, SELENE, mild , mild MR, moderate TR and severe pulmonary HTN (113 mmHg). Patient was on lisinopril and atenolol in but stopped during that hospitalization due to hyperkalemic and bradycardic along with syncopal episode. Pt changed to amlodipine and hydralazine. -Negative 2.1L -Cr 1.8 today. UOP declining -appreciate cardiology input -Bumex on hold (4) Pleural effusion: Code(s): J90 - Pleural effusion, not elsewhere classified Status: Acute Assessment and Plan: CT chest 06/16 showed diffuse bilateral pulmonary edema and/or pneumonia, moderate-size bilateral posterior layering pleural effusion with complete collapse of the right lower lobe and nearly complete collapse of the left lower lobe, cardiomegaly, reactive mediastinal lymphadenopathy and multinodular goiter. 06/17 -right thoracentesis and 550 mL fluid removed. 06/18 - left thoracentesis with 900mL removed. Studies pending but appears transudative thus far (5) Pulmonary hypertension: Code(s): I27.20 - Pulmonary hypertension, unspecified Status: Acute Assessment and Plan: Severe pulmonary hypertension likely causing congestive heart failure and acute respiratory failure; felt related to untreated obstructive sleep apnea. Appreciate pulmonology input (6) Chronic obstructive pulmonary disease: Code(s): J44.9 - Chronic obstructive pulmonary disease, unspecified Status: Acute Assessment and Plan: Patient is not wheezing, will hold off steroids (7) CKD (chronic kidney disease): Code(s): N18.9 - Chronic kidney disease, unspecified Status: Acute Assessment and Plan: Patient has a history of chronic kidney disease with baseline creatinine of 1.0-1.3. On admission, patient's creatinine was 1.6 likely related to hypoxia but improved to baseline. Not on any JULIET/ ARB at home. -Cr climbed to 1.8 today. UOP noted -Bumex stopped -continue monitor renal function, electrolytes and urine output (8) Insulin dependent type 2 diabetes mellitus: Code(s): E11.9 - Type 2 diabetes mellitu
[2022-06-19 20:02] LABS: Glucose Point of Care 239 mg/dl (65-105)
[2022-06-19] MEDS: LATANOPROST 0.005% OP SOLN 2.5 ML BTL 1 DROP EACH EYE (20:12)
[2022-06-19] MEDS: FENTANYL 2,500MCG/NS250ML(*CRX 2,500 MCG/250 ML BAG IV CONT (22:09)
[2022-06-19 23:27] LABS: Glucose Point of Care 210 mg/dl (65-105)
[2022-06-19] MEDS: PROPOFOL IV EMULSION 100 ML 13.5 MG IV CONT (23:55)
[2022-06-20] VITALS (29 sets, daily range): BP systolic 100–132; BP diastolic 43–54; PULSE 59–82; RESP 15–21; TEMP 36.4–37.6; O2SAT 89–98
--- NOTE | 2022-06-20 01:30 | PC.NURSE ---
Pt's FiO2 increased to 95%. Lengthy conversation with pt's son, Philip, regarding code status. Philip states he does not wish to change pt's code status because she chose to be a full code.
[2022-06-20] MEDS: IPRATROPIUM BR 0.02% INH SOLN 0.5 MG/2.5 ML VIAL INHALATION ×4 (02:12→21:14)
[2022-06-20] MEDS: ALBUTEROL SULFATE NEB 2.5 MG/3 ML INH 5 MG INHALATION ×4 (02:12→21:14)
[2022-06-20 04:36] LABS: Glucose Point of Care 227 mg/dl (65-105)
[2022-06-20] MEDS: INSULIN ASPART (*BKC) 100 UNITS/ML SUB-Q ×4 (04:38→23:08)
[2022-06-20 05:11] LABS: Alveolar/Arterial O2 Gradient 546.5 mmHg; Base Excess ABG 6.7 mEq/l (+/-2.0); Carboxyhemoglobin 0.3 % THb (0-2.0); Fractional Inspired Oxygen 95 %; HCO3 ABG 34.6 mEq/l (22.0-26.0); Methemoglobin ABG 0.3 %THb (0-1.5); Oxyhemoglobin 88.4 % THb (90.0-100.0); PO2 ABG 58.6 mmHg (80.0-100.0); PO2 FiO2 Ratio Arterial Blood 0.62 %; Total Hemoglobin 9.6 g/dL (12.0-18.0); pH ABG 7.303 (7.350-7.450)
[2022-06-20 05:13] LABS: PCO2 ABG 71.4 mmHg (35.0-45.0)
[2022-06-20 05:14] LABS: Device VENTILATOR; Modified Allen's Test Unable to perform; Oxygen Saturation ABG 86.6 % (95.0-100.0); Site Drawn RIGHT RADIAL
[2022-06-20 05:15] LABS: Arterial Blood Gas PEEP 10 cmH2O; Arterial Blood Gas Tidal Volume 320 ml; Arterial Blood Gas Vent Mode CMV; Arterial Blood Gas Ventilator rate 15 /MIN
[2022-06-20] MEDS: ALBUMIN HUMAN 25% 25 GM/100 ML 100 ML IVPB ×3 (05:31→19:10)
[2022-06-20] MEDS: CENTRAL LINE FLUSH 10 ML IV PUSH ×3 (05:31→23:07)
[2022-06-20 05:46] LABS: Hematocrit 29.2 % (37.0-47.0); Hemoglobin 8.6 g/dL (12.0-15.0); Mean Corpuscular HGB Conc 29.5 g/dl (32-36); Mean Corpuscular Hemoglobin 28.7 pg (26-34); Mean Corpuscular Volume 97.3 fl (80-100); Mean Platelet Volume 10.5 fl (7.4-10.4); Platelet Count Result 212 k/mm3 (150-375); Red Cell Distribution Width 13.9 % (11.5-14.5); White Blood Count 14.2 K/mm3 (4.5-10.0)
[2022-06-20 05:48] LABS: Alanine Aminotransferase 43 U/L (6-35); Albumin Level 4.4 g/dL (3.5-5.1); Alkaline Phosphatase 148 U/L (38-126); Anion Gap 15 mmol/L (8-16); Aspartate Amino Transferase 78 U/L (14-36); Bilirubin,Total 0.7 mg/dL (0.2-1.3); Blood Urea Nitrogen 54 mg/dL (7-17); Calcium 8.7 mg/dL (8.4-10.2); Carbon Dioxide 31 mmol/L (22-30); Chloride 90 mmol/L (98-107); Cholesterol 73 mg/dL (0-200); Estimated CRCL calculation 13 ml/min; Estimated Glomerular Filt Rate 15; Glucose 233 mg/dL (65-110); HDL Direct 29 mg/dL; Magnesium 2.9 mg/dL (1.6-2.3); Sodium 136 mmol/L (137-145); Triglycerides 90 mg/dL (<150)
[2022-06-20 05:58] LABS: LDL Cholesterol Direct < 30 mg/dL
[2022-06-20] MEDS: PROPOFOL IV EMULSION 100 ML 13.5 MG IV CONT ×3 (07:19→20:51)
[2022-06-20 07:27] LABS: Glucose Point of Care 221 mg/dl (65-105)
[2022-06-20] MEDS: INSULIN GLARGINE (*BKC) 100 UNITS/ML 13 UNITS SUB-Q (08:30)
[2022-06-20] MEDS: ENOXAPARIN 30 MG/0.3 ML SYRINGE SUB-Q (08:31)
[2022-06-20] MEDS: MINERAL OIL/WHITE PETROLATUM OINTMENT 1 APPLIC EACH EYE ×2 (08:32→19:51)
[2022-06-20] MEDS: ROSUVASTATIN 10 MG TABLET PO (08:32)
[2022-06-20] MEDS: PANTOPRAZOLE SODIUM IV 40 MG VIAL IV PUSH (08:32)
--- NOTE | 2022-06-20 08:39 | PM.IMPN ---
Progress Note: A&P Assessment and Plan (1) Acute respiratory failure with hypoxia and hypercapnia: Code(s): J96.01 - Acute respiratory failure with hypoxia; J96.02 - Acute respiratory failure with hypercapnia Status: Acute Assessment and Plan: Patient presents with SOB and found to have acute respiratory failure and was started on BiPAP on 06/10.?Worsening respiratory status and increasing oxygen requirements on BiPAP so moved to ICU on 06/16. Patient was hypoxic despite 100% FiO2 on BiPAP so intubated and placed on mechanical ventilation evening of 06/17. Multifactorial respiratory failure secondary to bilateral pleural effusions, possible pneumonia, pulmonary edema, severe pulm HTN, atelectasis and/or COPD. -Bilateral thoracentesis completed (right 06/17, left 06/18) -Cr increasing despite holding Bumex. Remains on Albumin -CXR showing worsening diffuse airspace disease -ABG noted -continue bronchodilators -continue cefepime and vancomycin (06/16) -pulmonary and statistical methods professor following and appreciate their input -detention outcome remains poor (2) Pneumonia: Code(s): J18.9 - Pneumonia, unspecified organism Status: Acute Assessment and Plan: Concern for possible PNA. Influenza and COVID negative on admission. -BCx (06/10) growing Staph epi, Staph haemolytics and Staph cohnii in all 4 bottles (pls see report) -UCx (06/10, 06/14) negative -BCx (06/14) negative -Pleural fluid Cx (06/17) pending -Sputum Cx (06/19) pending [place] BCx from 06/10 to be contaminant. Continue current IV abx. Continue neb treatments. (3) Congestive heart failure: Code(s): I50.9 - Heart failure, unspecified Status: Chronic Assessment and Plan: Congestive heart failure likely related to diastolic dysfxn, severe pulmonary HTN and tricuspid valve regurg. -Echo 04/09/22 shows EF 65-75%, grade 3 diastolic dysfunction, LAE, SELENE, mild , mild MR, moderate TR and severe pulmonary HTN (113 mmHg) -Patient was on lisinopril and atenolol in March but stopped during that hospitalization due to hyperkalemic and bradycardic along with syncopal episode. Pt changed to amlodipine and hydralazine. -Cumulative -150mL -Cr up to 3.0 today. UOP declining -appreciate cardiology input -Bumex on hold (4) MYRNA (acute kidney injury): Code(s): N17.9 - Acute kidney failure, unspecified Status: Acute Assessment and Plan: Patient has CKD with baseline creatinine of 1.0-1.3. Not on any JULIET/ ARB at home. -Cr 1.6 on admission related to hypoxia but improved to baseline. -Was being treated with Bumex -Cr climbed to 1.8 on 06/19 and Bumex held (last dose was evening of 06/18) -Cr now up to 3.0 with declining UOP -continue monitor renal function, electrolytes and urine output -Nephrology consulted (5) Pleural effusion: Code(s): J90 - Pleural effusion, not elsewhere classified Status: Acute Assessment and Plan: CT chest 06/16 showing diffuse bilateral pulmonary edema and/or pneumonia, moderate-size bilateral posterior layering pleural effusion with complete collapse of the right lower lobe and nearly complete collapse of the left lower lobe, cardiomegaly, reactive mediastinal lymphadenopathy and multinodular goiter. 06/17 -right thoracentesis and 550 mL fluid removed. 06/18 - left thoracentesis with 900mL removed. Studies pending but appears transudative thus far (6) Pulmonary hypertension: Code(s): I27.20 - Pulmonary hypertension, unspecified Status: Acute Assessment and Plan: Severe pulmonary hypertension likely causing congestive heart failure and acute respiratory failure; felt related to untreated obstructive sleep apnea. Appreciate pulmonology input (7) Chronic obstructive pulmonary disease: Code(s): J44.9 - Chronic obstructive pulmonary disease, unspecified Status: Acute Assessment and Plan: Patient is not wheezing, will hold off stero
[2022-06-20 08:58] LABS: Lipase 41 U/L (23-300)
[2022-06-20 09:07] LABS: NT Pro B Type Natriuretic Pept 12700 pg/mL (5-100)
--- NOTE | 2022-06-20 09:42 | PM.PNCARD ---
Progress Note: A&P Assessment and Plan (1) Paroxysmal atrial tachycardia: Code(s): I47.1 - Supraventricular tachycardia Status: Acute Assessment and Plan: Patient with asymptomatic frequent brief runs of paroxysmal atrial tachycardia as well as frequent premature atrial contractions off beta-catarina therapy, improved. Metoprolol started 06/12 with significant reduction in burden, now discontinued. No atrial fibrillation seen on telemetry thus far. She remains at increased risk for arrhythmias given comorbidities, severe pulmonary hypertension, untreated obstructive sleep apnea. Cardiology will see her intermittently. Please do not hesitate to call with questions. (2) Premature atrial contractions: Code(s): I49.1 - Atrial premature depolarization Status: Acute Assessment and Plan: As above, asymptomatic. Previously responded to metoprolol which has been discontinued. Continue telemetry (3) Pneumonia: Code(s): J18.9 - Pneumonia, unspecified organism Status: Acute Assessment and Plan: Pneumonia with respiratory failure. Management per hospitalist service. She is currently being treated for pneumonia as well with antibiotics. Low-grade fever noted today. (4) Pulmonary hypertension: Code(s): I27.20 - Pulmonary hypertension, unspecified Status: Acute Assessment and Plan: Severe with RVSP estimated at 113 mm Hg. Must avoid excessive hypotension due to the dangers associated with PA systolic pressures approaching systolic blood pressure Patient is at high risk with poor prognosis from this perspective alone. Etiology very likely multifactorial with clinical picture suggestive of pre and post capillary contribution although right heart catheterization would be required for further delineation. (5) Chronic obstructive pulmonary disease: Code(s): J44.9 - Chronic obstructive pulmonary disease, unspecified Status: Acute Assessment and Plan: COPD with respiratory failure, requiring intubation. Management per primary service. (6) Congestive heart failure: Code(s): I50.9 - Heart failure, unspecified Status: Chronic Assessment and Plan: Acute diastolic CHF Has bilateral pleural effusions, s/p bilateral thoracentesis Continue Bumex Subjective Date/time seen: 06/20/22 09:42 Interval history: Cardiology follow up for frequent PAC's, paroxysmal atrial tachycardia.? Echo 03/2022 showed EF 65-70%, diastolic dysfunction, mild to moderate valve disease, severe hypertension with RVSP of 113 mmHg. 06/14/22? 08:50 Feeling very tired today.? Denies any chest pain, palpitations.? Does have shortness of breath.? No swelling.? Remains in sinus rhythm with PAC's.? Metoprolol reduced due to history of? bradycardia. 06/18/22? 12:10? Patient was intubated overnight.? No longer on metoprolol.? She had right-sided thoracentesis yesterday, 500 cc's transudative fluid removed.? Had thoracentesis of the left side today, 900 cc removed.? Remains on a ventilator with FiO2 now reduced to 60%, being diuresed with Bumex.? Remains on antibiotics. Telemetry:? Normal sinus rhythm with APCs. Date of service 06/20/2022: Patient remains intubated. Unresponsive. Increasing oxygen requirement Review of Systems Review of Systems: All systems reviewed & are unremarkable except as noted in HPI and below ROS unobtainable: Yes unobtainable due to endotracheal tube, unobtainable due to medical condition and unobtainable due to mental status Constitutional: Constitutional: Reports as per HPI, Reports no additional constitutional complaints and Denies fever(s) Eyes: Eyes: Reports as per HPI and Reports no additional eye complaints ENT: Reports system reviewed and no additional complaints, except as documented and Reports as per HPI Cardiovascular: Cardiovascular: Reports as per HPI, Reports no additional cardiovascular complaint
--- NOTE | 2022-06-20 10:46 | WPDINTPN ---
Progress Note: A&P Assessment and Plan (1) Acute respiratory failure with hypoxia and hypercapnia: Code(s): J96.01 - Acute respiratory failure with hypoxia; J96.02 - Acute respiratory failure with hypercapnia Status: Acute Assessment and Plan: 06/16/2022: Patient was evaluated the intermediate Unit for worsening respiratory status, increasing oxygen requirements on BiPAP. Patient was transferred to the ICU for further management 06/17 -hypoxic despite 100% FiO2 on BiPAP. Intubated and placed on mechanical ventilation Multifactorial respiratory failure secondary to bilateral pleural effusions, possible pneumonia, pulmonary edema, severe pulmonary hypertension, COPD? -06/16: CT chest showed diffuse bilateral pulmonary edema and/or pneumonia, moderate-size bilateral posterior layering pleural effusion with complete collapse of the right lower lobe and nearly complete collapse of the left lower lobe, cardiomegaly could likely reactive mediastinal lymphadenopathy, multinodular goiter. 06/17 -right thoracentesis done and 550 mL fluid was removed. Appears to be transudate on initial studies although additional studies are pending 06/18-left thoracentesis performed and 900 mL fluid was removed Chest x-ray reviewed and shows worsening. Will check CT chest ABG reviewed - Increase PEEP to 12 Bumex on hold due to acute renal failure. Albumin to be continued -continue bronchodilators -continue cefepime and vancomycin (06/16) add Levaquin -pulmonary following (2) Chronic obstructive pulmonary disease: Code(s): J44.9 - Chronic obstructive pulmonary disease, unspecified Status: Acute Assessment and Plan: Patient is not wheezing, not on steroids (3) Congestive heart failure: Code(s): I50.9 - Heart failure, unspecified Status: Chronic Assessment and Plan: Congestive heart failure likely related to severe pulmonary hypertension, tricuspid valve regurg, essential hypertension, Echocardiogram from 04/09/2022 shows EF of 65-75%, grade 3 diastolic dysfunction, left atrial chamber moderately enlarged, right atrial chamber moderately enlarged, moderate aortic valve sclerosis, mild aortic valve stenosis, mitral valve has moderately thickened leaflets and severely calcified annulus, mild mitral valve regurg, moderate tricuspid valve regurg, severe pulmonary hypertension with RVSP of 113 mmHg -appreciate cardiology following the patient -continue cautious diuresis, blood pressure control -in March when she was hospitalized patient was on lisinopril and atenolol, was found to be hyperkalemic, and bradycardic along with syncopal episode, lisinopril and atenolol were discontinued and patient was started on amlodipine and hydralazine for blood pressure control Cardiology following (4) Acute kidney injury superimposed on CKD: Code(s): N17.9 - Acute kidney failure, unspecified; N18.9 - Chronic kidney disease, unspecified Status: Acute Assessment and Plan: Patient has a history of chronic kidney disease with baseline creatinine of 1.0-1.3, on admission patient's creatinine was 1.6 likely related to hypoxia. Not on any JULIET/ ARB at home Patient was being diuresed for volume overload and congestive heart failure Her creatinine has now increased and is 3.0 today with oliguria Hold Bumex Continue albumin Nephrology consulted Continue monitor renal function, electrolytes and urine output (5) Insulin dependent type 2 diabetes mellitus: Code(s): E11.9 - Type 2 diabetes mellitus without complications; Z79.4 - terminal makeup operator (current) use of insulin Status: Acute Assessment and Plan: Patient with history of insulin dependent diabetes, - hemoglobin A1c this admission is 9.5 -continue tube feeds -continue Lantus but increase dose -continue Accu-Cheks and sliding scale insulin (6) Hyperlipidemia: Code(s): E78.5 - Hyperlipidemia, unspecified Status: Chronic Assessment and Chandan
--- NOTE | 2022-06-20 11:36 | PM.PNPUL ---
Progress Note: A&P Assessment and Plan (1) Acute respiratory failure with hypoxia and hypercapnia: Code(s): J96.01 - Acute respiratory failure with hypoxia; J96.02 - Acute respiratory failure with hypercapnia Status: Acute Assessment and Plan: ?this 82-year-old female presented with shortness of breath, hypercapnic hypoxemic respiratory failure, with evidence of bilateral pulmonary infiltrates and small pleural effusions on chest imaging studies which in conjunction with the patient's long history of congestive heart failure suggest respiratory failure related to pulmonary edema / congestive heart failure.? As stated, patient has chronically elevated pulmonary artery systolic pressure, left ventricular diastolic dysfunction grade 3, moderately enlarged left atrium on last echocardiogram.? Patient has been on treatment for congestive heart failure. Over the last 72 hours her respiratory status has worsened and patient was transferred to the intensive care unit where she is currently intubated and sedated on mechanical ventilation. She has undergone thoracentesis bilaterally. Preliminary fluid analysis showed lymphocytic effusion probably related to congestive heart failure. remaining pleural fluid analysis data pending. Chest imaging studies including chest CT done this a.m. showed how worsening bilateral infiltrates primarily in the apices, bilateral pleural effusions. Moderately large effusion on right, small on left. sputum culture pending. Patient has been on on 3 antibiotics. She has leukocytosis. Plan: Chest imaging studies showed bilateral infiltrates especially in the upper lobes and also increasing pleural effusions more on right probably due to congestive heart failure. Superimposed pneumonia also likely. Worsening renal failure with positive fluid balance over last 24 hours. Progress is poor. discussed patient's condition with family members, they may consider DNR after discussing it with other family members. continue with same treatment. case also discussed with gas torch solderer. ? (2) Congestive heart failure: Code(s): I50.9 - Heart failure, unspecified Status: Chronic (3) Pulmonary hypertension: Code(s): I27.20 - Pulmonary hypertension, unspecified Status: Acute Assessment and Plan: The patient has severe pulmonary hypertension as calculated by recent echocardiogram.? The patient's pulmonary hypertension is probably related to left ventricular diastolic dysfunction and untreated sleep disordered breathing. This degree of pulmonary hypertension is [id number] to her cardiac hemodynamic status.? 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 Worsening of clinical status noted over the last 24 hours. Has been on vasopressors for hemodynamic instability, three antibiotics for nosocomial pneumonia. worsening of gas exchange, FiO2 increased to 95%. Creatinine around 3. Fluid positive over the last 24 hours. Review of Systems Review of Systems: All systems reviewed & are unremarkable except as noted in HPI and below ROS unobtainable: Yes unobtainable due to endotracheal tube Exam Narrative: GENERAL APPEARANCE: Well developed, well nourished, sedated on mechanical ventilation in the ICU SKIN: Inspection of the skin reveals no rashes, ulcerations or petechiae. HEENT: Sclerae anicteric and conjunctivae pink and moist. NECK: Supple. There was no thyroid enlargement. LUNGS: Auscultation of
--- NOTE | 2022-06-20 12:07 | PM.CNNEP ---
Assessment and Plan Assessment and plan (1) MYRNA (acute kidney injury): Code(s): N17.9 - Acute kidney failure, unspecified Status: Acute Assessment and Plan: due to hypoxia, diuresis, and fluctuating hemodynamics(?) renal ultrasound okay check urine electrolytes and eosinophils check CPK diuretics on hold currently follow trend of repeat labs and UOP (2) Stage 3b chronic kidney disease: Code(s): N18.32 - Chronic kidney disease, stage 3b Status: Chronic Assessment and Plan: baseline creatinine seems to run ~ 1.0 - 1.3mg/dl in the last year presumably due to diabetes, hypertension, vascular disease, HENRY, and age-related disease (3) Acute respiratory failure with hypoxia and hypercapnia: Code(s): J96.01 - Acute respiratory failure with hypoxia; J96.02 - Acute respiratory failure with hypercapnia Status: Acute Assessment and Plan: intubated due to ongoing hypoxia despite 100% FiO2 on BiPAP etiology multifactorial: bilateral pleural effusion pneumonia CHF HENRY COPD severe pulmonary HTN continue ventilator support on antibiotics Pulmonary following as well (4) Congestive heart failure: Code(s): I50.9 - Heart failure, unspecified Status: Chronic Assessment and Plan: was being treated with diuresis diuretics on hold due to #1 Cardiology following Echo results noted (5) Bilateral pleural effusion: Code(s): J90 - Pleural effusion, not elsewhere classified Status: Acute Assessment and Plan: was on IV diuretics before #1 s/p thoracentesis: right thoracentesis done and 550 mL fluid was removed (06/17/22) left thoracentesis with 900cc removed (06/18/22) repeat imaging ordered to re-assess (6) Insulin dependent type 2 diabetes mellitus: Code(s): E11.9 - Type 2 diabetes mellitus without complications; Z79.4 - roasterman (current) use of insulin Status: Acute Assessment and Plan: follow accuchecks glycemic control Will continue to follow. History of Present Illness Reason for Consult Consult date: 06/20/22 Reason for consult: acute renal failure (on chronic kidney disease) Chief Complaint Chief complaint: Acute Respiratory Failure with Hypercapnea History of Present Illness Narrative: All the information I have obtained is from review of the electronic medical record as well as discussion with the physician / nurses involved in the patient's care as she is currently unable to provide me with any history as she is intubated and on mechanical ventilation. The patient is an 82-year-old female with a past medical history as outlined below presented to to [facility] for further evaluation of the shortness of breath. She apparently had been doing reasonably well up until about four days prior to admission when she received her Covid do strict. Following this, she had the beginnings of shortness of breath that seemed at her baseline but progressively gotten worse. Other associated symptoms include increased lower extremity edema more so around her ankles although this tends to be somewhat of a chronic issue in general. She denied any chest pain, orthopnea, or paroxysmal dyspnea. No other subjective symptoms the guard to fevers, chills, nausea, vomiting, or palpitations. As her shortness progress continued to deteriorate and was quite severe on the morning of admission, EMS was contacted and she was subsequently transferred to the ER for further assessment. Upon arrival by EMS, she was reportedly hypoxic oxygen saturations of 50% on room air. She was immediately placed on a non-rebreather prior to her presentation to the ED. On arrival to the emergency room, she was noted to be quite tachypneic and in clear respiratory distress. Routine blood test demonstrated normal CBC and her chemistry was only significant for a mildly elevated creatinine of 1.6 which is slightly
--- NOTE | 2022-06-20 12:07 | P.CONNP_ITS ---
Assessment and Plan Assessment and plan (1) MYRNA (acute kidney injury): Code(s): N17.9 - Acute kidney failure, unspecified Status: Acute Assessment and Plan: * due to hypoxia, diuresis, and fluctuating hemodynamics(?) * renal ultrasound okay * check urine electrolytes and eosinophils * check CPK * diuretics on hold currently * follow trend of repeat labs and UOP (2) Stage 3b chronic kidney disease: Code(s): N18.32 - Chronic kidney disease, stage 3b Status: Chronic Assessment and Plan: * baseline creatinine seems to run ~ 1.0 - 1.3mg/dl in the last year * presumably due to diabetes, hypertension, vascular disease, HENRY, and age- related disease (3) Acute respiratory failure with hypoxia and hypercapnia: Code(s): J96.01 - Acute respiratory failure with hypoxia; J96.02 - Acute respiratory failure with hypercapnia Status: Acute Assessment and Plan: * intubated due to ongoing hypoxia despite 100% FiO2 on BiPAP * etiology multifactorial: * bilateral pleural effusion * pneumonia * CHF * HENRY * COPD * severe pulmonary HTN * continue ventilator support * on antibiotics * Pulmonary following as well (4) Congestive heart failure: Code(s): I50.9 - Heart failure, unspecified Status: Chronic Assessment and Plan: * was being treated with diuresis * diuretics on hold due to #1 * Cardiology following * Echo results noted (5) Bilateral pleural effusion: Code(s): J90 - Pleural effusion, not elsewhere classified Status: Acute Assessment and Plan: * was on IV diuretics before #1 * s/p thoracentesis: * right thoracentesis done and 550 mL fluid was removed (06/17/22) * left thoracentesis with 900cc removed (06/18/22) * repeat imaging ordered to re-assess (6) Insulin dependent type 2 diabetes mellitus: Code(s): E11.9 - Type 2 diabetes mellitus without complications; Z79.4 - [facility] (current) use of insulin Status: Acute Assessment and Plan: * follow accuchecks * glycemic control Will continue to follow. History of Present Illness Reason for Consult Consult date: 06/20/22 Reason for consult: acute renal failure (on chronic kidney disease) Chief Complaint Chief complaint: Acute Respiratory Failure with Hypercapnea History of Present Illness Narrative: All the information I have obtained is from review of the electronic medical record as well as discussion with the physician / nurses involved in the patient's care as she is currently unable to provide me with any history as she is intubated and on mechanical ventilation. The patient is an 82-year-old female with a past medical history as outlined below presented to to [facility] for further evaluation of the shortness of breath. She apparently had been doing reasonably well up until about four days prior to admission when she received her Covid do strict. Following this, she had the beginnings of shortness of breath that seemed at her baseline but progressively gotten worse. Other associated symptoms include increased lower extremity edema more so around her ankles although this tends to be somewhat of a chronic issue in general. She denied any chest pain, orthopnea, or paroxysmal dyspnea. No other subjective symptoms the guard to fevers, chills, nausea, vomiting, or palpitations. As her shortness progress continued to deteriorate and was quite severe on the morning of admission, EMS was contacted and she was subsequently transferred to the ER for further asse
[2022-06-20 12:32] LABS: Glucose Point of Care 165 mg/dl (65-105)
[2022-06-20] MEDS: polyethylene glycoL 3350 17 GM POWD.PACK PO (13:16)
[2022-06-20 16:53] LABS: Glucose Point of Care 202 mg/dl (65-105)
[2022-06-20] MEDS: LATANOPROST 0.005% OP SOLN 2.5 ML BTL 1 DROP EACH EYE (19:51)
[2022-06-20 20:02] LABS: Glucose Point of Care 189 mg/dl (65-105)
[2022-06-20 23:08] LABS: Glucose Point of Care 215 mg/dl (65-105)
[2022-06-21] VITALS (18 sets, daily range): BP systolic 93–105; BP diastolic 37–52; PULSE 59–78; RESP 18–22; TEMP 36.3–37.2; O2SAT 90–97
[2022-06-21] MEDS: ALBUMIN HUMAN 25% 25 GM/100 ML 100 ML IVPB ×2 (00:41→05:44)
[2022-06-21] MEDS: IPRATROPIUM BR 0.02% INH SOLN 0.5 MG/2.5 ML VIAL INHALATION ×3 (02:49→14:08)
[2022-06-21] MEDS: ALBUTEROL SULFATE NEB 2.5 MG/3 ML INH 5 MG INHALATION ×3 (02:49→14:08)
[2022-06-21 03:09] LABS: Creatinine Urine 130.1 mg/dL; Sodium Urine Random 17 meq/L; Total Protein Urine Random 127 mg/dL; Ur Ttl Prot Creatinine Ratio 0.98 mg/mg (0-0.20)
[2022-06-21 03:10] LABS: Creatinine Urine 141.3 mg/dL
[2022-06-21 03:13] LABS: Glucose Point of Care 151 mg/dl (65-105)
[2022-06-21 03:51] LABS: Hematocrit 25.8 % (37.0-47.0); Mean Corpuscular Hemoglobin 29.7 pg (26-34); Mean Corpuscular Volume 95.9 fl (80-100); Mean Platelet Volume 10.8 fl (7.4-10.4); Platelet Count Result 187 k/mm3 (150-375); Red Blood Count 2.69 M/mm3 (4.2-5.4); White Blood Count 19.7 K/mm3 (4.5-10.0)
[2022-06-21] MEDS: PROPOFOL IV EMULSION 100 ML 13.5 MG IV CONT ×2 (03:55→11:24)
[2022-06-21 04:06] LABS: Alanine Aminotransferase 77 U/L (6-35); Albumin Level 4.7 g/dL (3.5-5.1); Alkaline Phosphatase 181 U/L (38-126); Anion Gap 19 mmol/L (8-16); Aspartate Amino Transferase 265 U/L (14-36); Bilirubin,Total 0.7 mg/dL (0.2-1.3); Blood Urea Nitrogen 66 mg/dL (7-17); Calcium 8.6 mg/dL (8.4-10.2); Carbon Dioxide 27 mmol/L (22-30); Chloride 88 mmol/L (98-107); Creatine Kinase 26 U/L (30-135); Estimated CRCL calculation 11 ml/min; Estimated Glomerular Filt Rate 13; Glucose 138 mg/dL (65-110); Magnesium 2.9 mg/dL (1.6-2.3); Potassium 5.6 mmol/L (3.4-5.0); Sodium 134 mmol/L (137-145)
[2022-06-21 04:48] LABS: Hepatitis B Surface Antigen Negative (Negative)
[2022-06-21 05:40] LABS: Alveolar/Arterial O2 Gradient 64.8 mmHg; Base Excess ABG 5.9 mEq/l (+/-2.0); Carboxyhemoglobin 0.3 % THb (0-2.0); HCO3 ABG 33.5 mEq/l (22.0-26.0); Methemoglobin ABG 0.3 %THb (0-1.5); Oxygen Content ABG 9.9 %vol (16.0-22.0); Oxygen Saturation ABG 89.8 % (95.0-100.0); Oxyhemoglobin 90.4 % THb (90.0-100.0); PO2 ABG 65.6 mmHg (80.0-100.0); PO2 FiO2 Ratio Arterial Blood 2.19 %
[2022-06-21] MEDS: CENTRAL LINE FLUSH 10 ML IV PUSH (05:44)
[2022-06-21 05:45] LABS: Hepatitis B Surface Anti Res Negative
[2022-06-21 06:04] LABS: pH ABG 7.291 (7.350-7.450)
[2022-06-21 06:05] LABS: PCO2 ABG 71.1 mmHg (35.0-45.0); Total Hemoglobin 7.7 g/dL (12.0-18.0)
[2022-06-21 06:06] LABS: Device VENTILATOR; Modified Allen's Test Pass; Site Drawn RIGHT RADIAL
[2022-06-21 06:07] LABS: Arterial Blood Gas Vent Mode CMV; Arterial Blood Gas Ventilator rate 20 /MIN; Fractional Inspired Oxygen 90 %
[2022-06-21 06:08] LABS: Arterial Blood Gas PEEP 12 cmH2O; Arterial Blood Gas Tidal Volume 320 ml
--- NOTE | 2022-06-21 09:47 | PM.PNPUL ---
Progress Note: A&P Assessment and Plan (1) Acute respiratory failure with hypoxia and hypercapnia: Code(s): J96.01 - Acute respiratory failure with hypoxia; J96.02 - Acute respiratory failure with hypercapnia Status: Acute Assessment and Plan: ?this 82-year-old female presented with shortness of breath, hypercapnic hypoxemic respiratory failure, with evidence of bilateral pulmonary infiltrates and small pleural effusions on chest imaging studies which in conjunction with the patient's long history of congestive heart failure suggest respiratory failure related to pulmonary edema / congestive heart failure.? As stated, patient has chronically elevated pulmonary artery systolic pressure, left ventricular diastolic dysfunction grade 3, moderately enlarged left atrium on last echocardiogram.? Patient has been on treatment for congestive heart failure. Over the last 72 hours her respiratory status has worsened and patient was transferred to the intensive care unit where she is currently intubated and sedated on mechanical ventilation. She has undergone thoracentesis bilaterally. Preliminary fluid analysis showed lymphocytic effusion probably related to congestive heart failure. remaining pleural fluid analysis data pending. Chest x-ray done this a.m. showed worsening of bilateral infiltrates and effusions . sputum culture negative so far. Patient has been on on 3 antibiotics. WBC higher this a.m. Plan: continue with current supportive care. Patient's prognosis is poor given worsening of gas exchange and renal function. Family aware of patient's conditions. During last discussion with them they were waiting for another family member before deciding about code status. Case was discussed with the department chairperson. ? (2) Congestive heart failure: Code(s): I50.9 - Heart failure, unspecified Status: Chronic (3) Pulmonary hypertension: Code(s): I27.20 - Pulmonary hypertension, unspecified Status: Acute Assessment and Plan: The patient has severe pulmonary hypertension as calculated by recent echocardiogram.? The patient's pulmonary hypertension is probably related to left ventricular diastolic dysfunction and untreated sleep disordered breathing. This degree of pulmonary hypertension is [id number] to her cardiac hemodynamic status.? 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 Patient is now on 100% FiO2, remaining on antibiotics and vasopressor support, oliguric with a rising creatinine. Review of Systems Review of Systems: All systems reviewed & are unremarkable except as noted in HPI and below ROS unobtainable: Yes unobtainable due to endotracheal tube Exam Narrative: GENERAL APPEARANCE: Well developed, well nourished, sedated on mechanical ventilation in the ICU SKIN: Inspection of the skin reveals no rashes, ulcerations or petechiae. HEENT: Sclerae anicteric and conjunctivae pink and moist. NECK: Supple. There was no thyroid enlargement. LUNGS: Auscultation of the lungs revealed Tubular sounds right upper chest anteriorly, decreased breath sounds right lateral chest. CARDIAC: There was a irregular rate and rhythm 3/6 systolic ejection murmur at apex ABDOMEN: Soft with normal bowel sounds. There was no organomegaly. LYMPH NODES: No lymphadenopathy was appreciated in the neck. EXTREMITIES: No cyanosis, clubbing or edema. NEUROLOGIC: Fully sedated on mechanical ventilation. Objective Data
--- NOTE | 2022-06-21 10:27 | P.PNNP_ITS ---
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 * follow trend of repeat labs and UOP (2) Stage 3b chronic kidney disease: Code(s): N18.32 - Chronic kidney disease, stage 3b Status: Chronic Assessment and Plan: * baseline creatinine seems to run ~ 1.0 - 1.3mg/dl in the last year * presumably due to diabetes, hypertension, vascular disease, HENRY, and age- related disease (3) Acute respiratory failure with hypoxia and hypercapnia: Code(s): J96.01 - Acute respiratory failure with hypoxia; J96.02 - Acute respiratory failure with hypercapnia Status: Acute Assessment and Plan: * intubated due to ongoing hypoxia despite 100% FiO2 on BiPAP * etiology multifactorial: * bilateral pleural effusion * pneumonia * CHF * HENRY * COPD * severe pulmonary HTN * continue ventilator support * on antibiotics * Pulmonary following as well (4) Congestive heart failure: Code(s): I50.9 - Heart failure, unspecified Status: Chronic Assessment and Plan: * was being treated with diuresis * diuretics on hold due to #1 * Cardiology following * Echo results noted (5) Bilateral pleural effusion: Code(s): J90 - Pleural effusion, not elsewhere classified Status: Acute Assessment and Plan: * was on IV diuretics before #1 * s/p thoracentesis: * right thoracentesis done and 550 mL fluid was removed (06/17/22) * left thoracentesis with 900cc removed (06/18/22) * repeat imaging ordered to re-assess (6) Insulin dependent type 2 diabetes mellitus: Code(s): E11.9 - Type 2 diabetes mellitus without complications; Z79.4 - residential (current) use of insulin Status: Acute Assessment and Plan: * follow accuchecks * glycemic control Long and extensive discussion (> 20 minutes) with patient son and [id number] regarding patient's declining renal function and associated volume overload as well as the likelihood that the next step in management of these conditions is renal replacement therapy/dialysis. They voiced u nderstanding and are in talks with other family members regarding level of care/goals of therapy given her other medical issues/problems. Will continue to follow. Subjective Date/time seen: 06/21/22 10:27 Remains intubated and on full mechanical ventilator support; poor urine output noted in the last 24 hours; BP soft but stable without the need for vasopressor therapy; no other acute issues/events overnight or earlier this morning; son and [id number] at bedside and we discussed the situation. Objective Data Vital Signs Vital Signs: Vital Signs Temp Pulse Resp BP Pulse Ox O2 Del Method FiO2 06/21/22 08:45 61 20 06/21/22 08:45 61 91 Mechanical Ventilation 100 06/21/22 06:00 63 18 97/51 L 91 06/21/22 06:00 63 06/21/22 05:17 59 L 90 Mechanical Ventilation 90
--- NOTE | 2022-06-21 10:27 | PM.PNNEP ---
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 follow trend of repeat labs and UOP (2) Stage 3b chronic kidney disease: Code(s): N18.32 - Chronic kidney disease, stage 3b Status: Chronic Assessment and Plan: baseline creatinine seems to run ~ 1.0 - 1.3mg/dl in the last year presumably due to diabetes, hypertension, vascular disease, HENRY, and age-related disease (3) Acute respiratory failure with hypoxia and hypercapnia: Code(s): J96.01 - Acute respiratory failure with hypoxia; J96.02 - Acute respiratory failure with hypercapnia Status: Acute Assessment and Plan: intubated due to ongoing hypoxia despite 100% FiO2 on BiPAP etiology multifactorial: bilateral pleural effusion pneumonia CHF HENRY COPD severe pulmonary HTN continue ventilator support on antibiotics Pulmonary following as well (4) Congestive heart failure: Code(s): I50.9 - Heart failure, unspecified Status: Chronic Assessment and Plan: was being treated with diuresis diuretics on hold due to #1 Cardiology following Echo results noted (5) Bilateral pleural effusion: Code(s): J90 - Pleural effusion, not elsewhere classified Status: Acute Assessment and Plan: was on IV diuretics before #1 s/p thoracentesis: right thoracentesis done and 550 mL fluid was removed (06/17/22) left thoracentesis with 900cc removed (06/18/22) repeat imaging ordered to re-assess (6) Insulin dependent type 2 diabetes mellitus: Code(s): E11.9 - Type 2 diabetes mellitus without complications; Z79.4 - [facility] Status: Acute Assessment and Plan: follow accuchecks glycemic control Long and extensive discussion (> 20 minutes) with patient son and wgtduhyz-[id number] regarding patient's declining renal function and associated volume overload as well as the likelihood that the next step in management of these conditions is renal replacement therapy/dialysis. They voiced understanding and are in talks with other family members regarding level of care/goals of therapy given her other medical issues/problems. Will continue to follow. Subjective Date/time seen: 06/21/22 10:27 Remains intubated and on full mechanical ventilator support; poor urine output noted in the last 24 hours; BP soft but stable without the need for vasopressor therapy; no other acute issues/events overnight or earlier this morning; son and znvfemcn-wj-uos at bedside and we discussed the situation. Objective Data Vital Signs Vital Signs: Vital Signs Temp Pulse Resp BP Pulse Ox O2 Del Method FiO2 06/21/22 08:45 61 20 06/21/22 08:45 61 91 Mechanical Ventilation 100 06/21/22 06:00 63 18 97/51 L 91 06/21/22 06:00 63 06/21/22 05:17 59 L 90 Mechanical Ventilation 90 06/21/22 04:00 97.3 F L 64 19 101/47 L 93 06/21/22 04:00 90 06/21/22 04:00 67 20 95 Mechanical Ventilation 90 06/21/22 04:00 64 06/21/22 02:55 78 18 06/21/22 03:55 67 20 06/21/22 03:55 67 20 06/21/22 02:00 66 18 95/47 L 95 06/21/22 02:00 67 06/21/22 00:00 97.3 F L 67 18 95/45 L 97 06/21/22 00:00 90 06/21/22 00:00 67 18 97 Mechanical Ventilation 90 06/21/22 00:00 76 06/20/22 23:45 67 97 Mechanical Ventilation 90 06/20/22 22:00 59 L 18 100/51 L 95 06/20/22 22:00 62
--- NOTE | 2022-06-21 10:37 | WPDINTPN ---
Progress Note: A&P Assessment and Plan (1) Acute respiratory failure with hypoxia and hypercapnia: Code(s): J96.01 - Acute respiratory failure with hypoxia; J96.02 - Acute respiratory failure with hypercapnia Status: Acute Assessment and Plan: 06/16/2022: Patient was evaluated the intermediate Unit for worsening respiratory status, increasing oxygen requirements on BiPAP. Patient was transferred to the ICU for further management 06/17 -hypoxic despite 100% FiO2 on BiPAP. Intubated and placed on mechanical ventilation Multifactorial respiratory failure secondary to bilateral pleural effusions, possible pneumonia, pulmonary edema, severe pulmonary hypertension, COPD? -06/16: CT chest showed diffuse bilateral pulmonary edema and/or pneumonia, moderate-size bilateral posterior layering pleural effusion with complete collapse of the right lower lobe and nearly complete collapse of the left lower lobe, cardiomegaly could likely reactive mediastinal lymphadenopathy, multinodular goiter. 06/17 -right thoracentesis done and 550 mL fluid was removed. Appears to be transudate on initial studies although additional studies are pending 06/18-left thoracentesis performed and 900 mL fluid was removed 06/[address] IMPRESSION:? Considerably increased patchy consolidation of the lungs, particularly lobes, since 06/16/2022 Persistent cardiomegaly, pleural effusions and compressive bilateral lower lobe atelectasis Chest x-ray reviewed ABG reviewed - Increase PEEP to 14 FiO2 is at 100% Bumex on hold due to acute renal failure. -continue bronchodilators -continue cefepime and vancomycin (06/16) and Levaquin (06/20) -pulmonary following (2) Chronic obstructive pulmonary disease: Code(s): J44.9 - Chronic obstructive pulmonary disease, unspecified Status: Acute Assessment and Plan: Patient is not wheezing, not on steroids (3) Congestive heart failure: Code(s): I50.9 - Heart failure, unspecified Status: Chronic Assessment and Plan: Congestive heart failure likely related to severe pulmonary hypertension, tricuspid valve regurg, essential hypertension, Echocardiogram from 04/09/2022 shows EF of 65-75%, grade 3 diastolic dysfunction, left atrial chamber moderately enlarged, right atrial chamber moderately enlarged, moderate aortic valve sclerosis, mild aortic valve stenosis, mitral valve has moderately thickened leaflets and severely calcified annulus, mild mitral valve regurg, moderate tricuspid valve regurg, severe pulmonary hypertension with RVSP of 113 mmHg -appreciate cardiology following the patient -continue cautious diuresis, blood pressure control -in March when she was hospitalized patient was on lisinopril and atenolol, was found to be hyperkalemic, and bradycardic along with syncopal episode, lisinopril and atenolol were discontinued and patient was started on amlodipine and hydralazine for blood pressure control Cardiology following (4) Acute kidney injury superimposed on CKD: Code(s): N17.9 - Acute kidney failure, unspecified; N18.9 - Chronic kidney disease, unspecified Status: Acute Assessment and Plan: Patient has a history of chronic kidney disease with baseline creatinine of 1.0-1.3, on admission patient's creatinine was 1.6 likely related to hypoxia. Not on any JULIET/ ARB at home Patient was being diuresed for volume overload and congestive heart failure Her creatinine has now increased and is 3.3 today with oliguria Continue to Hold Bumex Nephrology following Continue monitor renal function, electrolytes and urine output Patient will likely need dialysis. Discussed with family today -see below (5) Hyperkalemia: Code(s): E87.5 - Hyperkalemia Status: Acute Assessment and Plan: Mild hyperkalemia Lokelma insulin regular and D50 ordered Repeat BMP later today (6) Insulin dependent type 2 diabetes mellitus: Code(s): E11.9 - Type 2 diabetes adriana
[2022-06-21 10:45] LABS: Glucose Point of Care 195 mg/dl (65-105)
[2022-06-21] MEDS: INSULIN HUMAN REGULAR (*BKC) 100 UNITS/ML 10 UNITS IV PUSH (10:47)
[2022-06-21] MEDS: DEXTROSE 50% 25 GM/50 ML SYRINGE IV PUSH (10:47)
[2022-06-21] MEDS: polyethylene glycoL 3350 17 GM POWD.PACK PO (10:48)
[2022-06-21] MEDS: SODIUM ZIRCONIUM CYCLOSILICATE 10 GM POWD.PACK FEED TUBE (10:48)
[2022-06-21] MEDS: MINERAL OIL/WHITE PETROLATUM OINTMENT 1 APPLIC EACH EYE (10:48)
--- NOTE | 2022-06-21 11:36 | PCNFU ---
Nutrition Follow-Up Complete: Potential for inadequate oral intake related to respiratory status as evidenced by ICU status, need for high flow oxygen. Goal: Meet nutrition needs -Goal met per tube feeding Pt current nutrition is Glucerna 1.5 @ 50 ml/h - on hold due to NPO status for thoracentesis. Nutrition recommendation: Resume tube feeding when medically able with new recommendation: Nepro @ 40 ml/h with flushes 30 ml q 4 hours: 1584 kcals, 71 g protein, 639 ml free water. 819ml total free water/day. Last recorded weight is 77.2 kg. Bowel Motility: Last BM 06/13/22 Labs Reviewed:Hgb 8.0, Hct 25.8, Na 134, K+ 5.6, EGFR 13, BUN 66, Creat 3.3, Glu 195, Mag 2.9 Meds Noted: Fentanyl, propofol @ 13.5 ml/h= 356 kcals Skin: maceration to buttocks Additional Notes: Tube feeding on hold. Recommend switching to Nepro @ 40 ml/h for worsening kidney function. Monitoring plan of care, PO intake, labs, weights. Follow daily in ICU rounds. Follow up/reassess 5 days.
[2022-06-21 15:15] LABS: Anion Gap 15 mmol/L (8-16); Blood Urea Nitrogen 74 mg/dL (7-17); Calcium 8.5 mg/dL (8.4-10.2); Carbon Dioxide 30 mmol/L (22-30); Chloride 87 mmol/L (98-107); Glucose 298 mg/dL (65-110); Sodium 132 mmol/L (137-145)
[2022-06-21 15:35] LABS: Estimated CRCL calculation 11 ml/min; Estimated Glomerular Filt Rate 13
[2022-06-21 15:52] LABS: Vancomycin Trough 23.1 ug/mL (10.0-20.0)
[2022-06-21] MEDS: LORazepam INJ (*CRX) 2 MG/ML VIAL IV PUSH (17:24)
[2022-06-21] MEDS: MORPHINE SULFATE INJ (*CRX) 10 MG/ML AMP 5 MG IV PUSH (17:25)
--- NOTE | 2022-06-21 18:01 | PM.DDS ---
Discharge Summary Date and Time Date of : 06/21/22 Time of : 17:30 Provider Pronounced By: maurizio schwartz rn and joel morley rn Probable Cause of Probable Cause of : Respiratory failure Summary Hospital Course: Patient presents with SOB and found to have acute respiratory failure and was started on BiPAP on 06/10.?Worsening respiratory status and increasing oxygen requirements on BiPAP so moved to ICU on 06/16.? Patient was hypoxic despite 100% FiO2 on BiPAP so intubated and placed on mechanical ventilation evening of 06/17. Multifactorial respiratory failure secondary to bilateral pleural effusions, possible pneumonia, pulmonary edema, severe pulm HTN, atelectasis and/or COPD. She was on antibiotics. She had bilateral thoracentesis. She was on diuretics but then developed renal failure. Family was aware of the severity of the patient's condition. They decided to make her comfortable. She was extubated and on 06/21/22. Additional Data Confirmation of as documented by pronouncing clinician: Pupillary Reflex, Palpable Pulses, Response to Stimuli, Heart Tones and Breath Sounds Name of Provider Notified: dr. villa and dr. guzmán Time Provider Notified: 17:54 Provider Requests Autopsy: No Family Requests Autopsy: No Adapted Physical Education Teacher Notified: Yes Date [facility] Notified of : 06/21/22 Time [facility] Notified of : 17:55
[2022-06-23 19:05] LABS: Glucose Pleural Fluid 103 mg/dL; LDH Pleural Fluid 71 U/L; Total Protein Pleural Fluid <3.0 g/dL
[2022-06-29 11:28] LABS: Chloride Rand Ur <20 mmol/L (32-290); Creatinine Random Urine 102 mg/dL (20-275)
== END 2022-06-21 17:30 | disposition expired | DRG 208 ==
LOC: ANHED 09:04 → ANHIMU 11:50 → ANHICU 06-16 11:48
PROVIDERS: Hospitalist; Internal Medicine; Internal Medicine Nephrology; Admitting Provider Internal Medicine; Emergency Provider General Practice; PCP Family Medicine; Visit Provider Family Medicine
DX: J96.01 Acute respiratory failure with hypoxia (principal); J18.9 Pneumonia, unspecified organism; I50.43 Acute on chronic combined systolic (congestive) and diastolic (congestive) heart failure; J44.0 Chronic obstructive pulmonary disease with (acute) lower respiratory infection; I13.0 Hypertensive heart and chronic kidney disease with heart failure and stage 1 through stage 4 chronic kidney disease, or unspecified chronic kidney disease; I47.1 Supraventricular tachycardia; J91.8 Pleural effusion in other conditions classified elsewhere; R78.81 Bacteremia; N17.9 Acute kidney failure, unspecified; J96.02 Acute respiratory failure with hypercapnia; I49.1 Atrial premature depolarization; Z20.822 Contact with and (suspected) exposure to COVID-19; B95.7 Other staphylococcus as the cause of diseases classified elsewhere; E11.22 Type 2 diabetes mellitus with diabetic chronic kidney disease; N18.32 Chronic kidney disease, stage 3b; E87.5 Hyperkalemia; E78.5 Hyperlipidemia, unspecified; G47.33 Obstructive sleep apnea (adult) (pediatric); E11.42 Type 2 diabetes mellitus with diabetic polyneuropathy; E11.319 Type 2 diabetes mellitus with unspecified diabetic retinopathy without macular edema; S09.90XA Unspecified injury of head, initial encounter; W19.XXXA Unspecified fall, initial encounter; Y95 Nosocomial condition; Z91.198 Patient's noncompliance with other medical treatment and regimen for other reason; Z79.4 Long term (current) use of insulin; Z85.41 Personal history of malignant neoplasm of cervix uteri; Z98.42 Cataract extraction status, left eye; Z98.41 Cataract extraction status, right eye; Z90.49 Acquired absence of other specified parts of digestive tract; Z87.891 Personal history of nicotine dependence; Z86.718 Personal history of other venous thrombosis and embolism
CPT/HCPCS: 32555; 36415; 36569; 36600; 51701; 70450; 71045; 71250; 76775; 80048; 80053; 80061; 80069; 80076; 80202; 81001; 82375; 82436; 82550; 82565; 82570; 82607; 82746; 82805; 82945; 82948; 83036; 83050; 83605; 83615; 83690; 83735; 83880; 83986; 84100; 84145; 84156; 84157; 84300; 84443; 84484; 85025; 85027; 85610; 85730; 85999; 86160; 86706; 87040; 87070; 87075; 87077; 87086; 87186; 87205; 87340; 87636; 89051; 92610; 93005; 93971; 94002; 94003; 94640; 94660; 96374; 97110; 97161; 97165; 97530; 97535; 99285; A9270; C1751; C9113; J0330; J0456; J0692; J0696; J1650; J1815; J1940; J1956; J2060; J2270; J2704; J3010; J3370; P9047